=== PATIENT | female | born 1950 | race African-American/Black ===

== ENCOUNTER 2017-01-28 10:55 | Observation (INO) | payer BC, MEDICARE ==
[2017-01-28 12:06] LABS: #Eosinphils 0.1 thou/uL (0.0-0.7); #Monocytes 0.6 thou/uL (0.11-0.59); #Neutrophils 4.6 thou/uL (1.40-6.50); %Basophils 0.2 % (0.0-1.0); %Eosinophils 1.8 % (0.0-10.0); %Lymphocytes 27.2 % (21.0-51.0); %Monocytes 7.5 % (0.0-10.0); Mean Platelet Volume 8.2 fL (7.4-10.4); Red Blood Cell (RBC) Count 4.49 mill/uL (4.20-5.40); White Blood Cell (WBC) Count 7.3 thou/uL (4.8-10.8)
[2017-01-28] MEDS ORDERED: Ketorolac Tromethamine 30 MG/ML VIAL ONE (12:07)
[2017-01-28 12:26] LABS: Bilirubin Negative (Negative); Blood, Urine Negative (Negative); Glucose, Urine (Dipstick) Negative (Negative); Ketone, Urine Negative (Negative); Nitrite Negative (Negative); Protein, Urine (Dipstick) Negative (Neg-Trace)
[2017-01-28 12:30] LABS: ALT (SGPT) 32 U/L (8-55); AST (SGOT) 27 U/L (5-34); Alkaline Phosphatase 87 U/L (40-150); Anion Gap 11 mmol/L (10-20); BUN (Urea Nitrogen) 11 mg/dL (9.8-20.1); Bilirubin, Total 0.4 mg/dL (0.2-1.2); Calc. Creatinine Clearance 0 mL/min (70-130); Calcium 9.1 mg/dL (7.8-10.44); Carbon Dioxide 26 mmol/L (23-31); Chloride 105 mmol/L (98-107); Estimated GFR-MDRD Greater than 90; Globulin 2.8 g/dL (2.4-3.5); Lipase 14 U/L (8-78); Protein, Total 6.7 g/dL (6.0-8.3)
[2017-01-28 12:46] LABS: PTT 29.3 SEC (22.9-36.1)
[2017-01-28 12:58] LABS: Troponin I Less than 0.010 ng/mL (< 0.028)
[2017-01-28] MEDS ORDERED: ISOVUE-370 76%-LOCM 1 ML ONE (13:11)
--- NOTE | 2017-01-28 13:18 | CT ---
CT ABDOMEN AND PELVIS WITH CONTRAST: Technique: Multiple axial tomograms were obtained through the abdomen and pelvis with IV enhancement. Oral contrast was not administered. History: Right sided abdominal pain. Nausea. Comparison: Noncontrast CT abdomen and pelvis dated 04-24-12. FINDINGS: Lung bases are clear. There is a small sliding diaphragmatic hernia. The liver, spleen and pancreas appear unremarkable. The gallbladder is mildly distended. No calcified stone is seen on CT. Cholesterol stones will not be apparent on CT, consider gallbladder ultrasound evaluation. Review of the kidneys reveals an exophytic lesion measuring 1.2 cm off the lateral cortex of the left kidney. This lesion has densities recorded at 27 Hounsfield units which are too high for a simple cy stic lesion. This lesion was not present in 2013. Kidneys are otherwise unremarkable. No hydronephrosis. No urinary tract calculus. Small bowel loops are normal caliber. The appendix appears normal. Colon is unremarkable. Scattered d iverticula. No evidence of diverticulitis. Aorta is normal caliber. No adenopathy. Images through the pelvis again show a large partially calcified fibroid projecting from the anterior uterine fundus measuring 3-4 cm. This was noted on the prior exam. IMPRESSION: 1. There is a complex lesion which is exophytic from the lateral left renal cortex measuring 1.3 cm. Densities are higher than expected for a simple cyst. This lesion was not present in 2013 and is mode rately suspicious. Follow up is recommended to assess stability. Suggest repeat CT abdomen with and w ithout contrast in 3-4 months. 2. Mild gallbladder distention. Consider further evaluation with gallbladder ultrasound as discussed above. 3. Partially calcified fibroid from the uterine fundus again noted. 4. Small sliding diaphragmatic hernia. Code T POS: [facility]
[2017-01-28] MEDS ORDERED: Enoxaparin Sodium 100 MG/ML SYRINGE ONE (13:25)
[2017-01-28] MEDS ORDERED: Diltiazem 125 MG in Sodium Chloride 0.9% 100 ML IVPB SCH (13:30)
[2017-01-28 15:08] LABS: Free T3 3.19 pg/mL (1.71-3.71)
[2017-01-28 15:40] LABS: Troponin I Less than 0.010 ng/mL (< 0.028)
--- NOTE | 2017-01-28 15:40 | HP ---
PRIMARY CARE PHYSICIAN: Dr. Da Haywood at [facility]. REASON FOR ADMISSION: Abdominal pain and new onset atrial fibrillation. HISTORY OF PRESENT ILLNESS: A 66-year-old female with a history of hypertension, dyslipidemia, as well as chronic low back pain from lumbar stenosis, who came to the emergency room for evaluation of abdominal pain. She describes her pain is in the predominantly in the right hip area, which radiates posterior aspect of right leg to her toe, and at the same time, the patient also feeling abdominal pain, which radiates from right flank to groin. She was feeling nausea. She denies any fever or chills. She denies any urinary tract infection symptoms. She denies any constipation, diarrhea, melena, or hematochezia. In the emergency room, patient had CT of the abdomen and pelvis, which showed complex lesion from left renal cortex measuring about 1.3 cm and patient was also found with mild gallbladder distention and partially calcified uterine fibroid and small diaphragmatic hernia. The patient's pain was controlled in the emergency room, she was given Toradol 15 mg, aspirin 324 mg, IV fluids, Lovenox 1 mg/kg, and Cardizem 120 mg. This patient was newly diagnosed with atrial fibrillation. No one told that she has atrial fibrillation, but when they did EKGs, she was found with atrial fibrillation with RVR with heart rate was 137. Subsequently, after stabilization with the pain. The patient's heart rate was running in 100 to 110. She was not feeling any symptoms associated with AFib. She was not feeling any dizziness, chest pain, or palpitation. She did not have any previous stroke or TIA symptoms. She denies any diabetes history as well as CHF history. The patient denies taking excessive caffeinated products. She denies any thyroid disorder problem. She denies any headache, focal motor symptoms. REVIEW OF SYSTEMS: The following complete review of systems was negative, unless otherwise mentioned in the HPI or below: Constitutional: Weight loss or gain, ability to conduct usual activities. Skin: Rash, itching. Eyes: Double vision, pain. ENT/Mouth: Nose bleeding, neck stiffness, pain, tenderness. Cardiovascular: Palpitations, dyspnea on exertion, orthopnea. Respiratory: Shortness of breath, wheezing, cough, hemoptysis, fever or night sweats. Gastrointestinal: Poor appetite, abdominal pain, heartburn, nausea, vomiting, constipation, or diarrhea. Genitourinary: Urgency, frequency, dysuria, nocturia. Musculoskeletal: Pain, swelling. Neurologic/Psychiatric: Anxiety, depression. Allergy/Immunologic: Skin rash, bleeding tendency. Please see my HPI for pertinent positives and negatives. All other review of systems reviewed and negative except as mentioned in the HPI. CURRENT HOME MEDICATIONS: Amlodipine 10 mg p.o. daily, gabapentin 100 mg p.o. daily, and Lipitor 80 mg p.o. at bedtime. PAST MEDICAL HISTORY: Lumbar stenosis, morbid obesity, hypertension, osteoarthritis, dyslipidemia, and chronic low back pain. PAST SURGICAL HISTORY: , tubal ligation, left total knee replacement. PAST PSYCHIATRIC HISTORY: Reviewed and negative. SOCIAL HISTORY: Patient lives at home. 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 She denies any tobacco, alcohol or illicit drug abuse. She occasionally and very rarely socially drinks wine. FAMILY HISTORY: No strong family history of premature coronary artery disease, stroke or cancer. ALLERGIES: No known drug allergy. PHYSICAL EXAMINATION: VITAL SIGNS: On arrival, blood pressure 115/83, pulse 137 and irregular, respiratory rate 18, temperature 97.8, saturation 100% on room air and weight 104.3 kilograms. GENERAL: The patient is currently alert, awake, in no obvious acute distress. HEENT: Head is normocephalic, atraumatic. Eyes: Pupils round, reactive to light. Extraocular muscles intact. ENT: Oropharynx within normal limits. Moist mucous membranes. No oral lesions. No pharyngeal erythema, no exudates. NECK: Supple, no JVD, no thyromegaly, no carotid bruit. LUNGS: Clear to auscultation without any rhonchi or rales. CARDIAC: S1 and S2, irregularly irregular. No murmur elicited, no gallop, no rub. ABDOMEN: Obesity present. Bowel sounds present. No peritoneal signs, no guarding, no rigidity, no rebound. The patient does have right-sided flank discomfort, but no Mckeon sign. No epigastric discomfort. BACK: Right-sided hip tenderness and the patient has subjective pain radiating to lower leg on the right side. EXTREMITY: Upper extremity passive movement of all joints are normal. Lower extremity: Patient does have tenderness over right lateral thigh and gluteal muscles. The patient does have sciatica type of picture. NEUROLOGIC: The patient is alert, oriented x3. Cranial nerves II through XII intact. Motor and sensation within normal limits. No focal neurological deficit noted. SKIN: No skin rash. PSYCHIATRIC: Normal affect. HEMATOLOGIC: No lymphadenopathy. SIGNIFICANT LABS: EKG based on my review, atrial fibrillation with a rapid ventricular response, but subsequently her rate was variable from 100 to 110, nonspecific ST-T changes. CT of the abdomen and pelvis done in the emergency room showed incidental finding of complex lesion originating from left renal cortex measuring 1.3 cm. Gallbladder distention, partially calcified uterine fibroid and small sliding diaphragmatic hernia. CBC: WBC 7.3, hemoglobin 13.0, platelets 177. INR 1.1. BMP: Sodium 138, potassium 4.1, chloride 105, carbon dioxide 26, anion gap 11, BUN 11, creatinine 0.72, glucose 99, calcium 9.1. LFT: AST 27, ALT 32, alkaline phosphatase 87, albumin 3.9, lipase 14. CK 188, CK-MB 2.8, troponin I less than 0.010. Urinalysis normal. ASSESSMENT AND PLAN: 1. Abdominal pain, right side from groin to flank, uncertain etiology, but when we did a CT of the abdomen and pelvis, it is showing gallbladder distention. For further evaluation, I will do her gallbladder ultrasound to rule out any gallbladder pathology. Otherwise, we will control her pain with the pain medication. At this point, her pain is not clear currently explained by CT scan finding. 2. New onset atrial fibrillation with rapid ventricular response. The patient is asymptomatic. She does not know previous history of atrial fibrillation and most likely this is new onset. We will obtain echocardiography. I will check TSH, free T4, T3. I will start oral Cardizem therapy too for rate control. At this point, does not suspect that this patient will need a full admission or Cardizem drip, but we will continue to treat her with oral medication. The patient will need anticoagulation therapy with Lovenox 1 mg per kg for stroke prophylaxis. Meanwhile, we will continue with aspirin 325 mg p.o. daily. Patient has a CHADS2 score of only 2, so far with hypertension and age and so that she is at low risk for having any thromboembolic disorder from atrial fibrillation, so she may benefit from aspirin. 3. Renal mass. A CT scan finding reported 1.3 cm dense lesion from left kidney and it is suspicious and that is why I spoke with the patient to get another CT scan with renal mass protocol in 3-4 months. At this point, this is an incidental finding and no need of investigating during this admission. 4. Mild gallbladder distention, we will do an abdominal ultrasound to rule out any gallbladder pathology and to rule out any pigment stone. 5. Sliding diaphragmatic hernia. Patient will need Pepcid 20 mg twice daily and necessary dietary instruction given. 6. Calcified fibroid. At this point, patient is asymptomatic. She does not have any menorrhagia and her hemoglobin is stable. 6. Obesity with BMI of 32, the patient will need dietary education and weight loss education given. 7. Right hip pain and radicular pain in the right lower extremity. This patient has lumbar stenosis and now she is suffering from sciatica with radicular pain. At this point, we will control her pain with Toradol, morphine , and Flexeril. The patient is following outpatient basis in her pain clinic and that is why she is advised to follow up with pain clinic for further treatment if needed. 8. Deep venous thrombosis prophylaxis. At this point, we are starting Lovenox 1 mg per kg for a new onset atrial fibrillation. Gastrointestinal prophylaxis, Pepcid 20 mg p.o. daily. 9. Hypertension. We will continue amlodipine 10 mg p.o. daily if blood pressure permits. 10. Dyslipidemia. We will check lipid profile and continue Lipitor 80 mg p.o. at bedtime. 11. Deep venous thrombosis prophylaxis. Patient is already on Lovenox therapy. 12. Gastrointestinal prophylaxis. Pepcid 20 mg p.o. daily. CODE STATUS: The patient is FULL CODE. Disposition plan based on clinical course. Expecting discharge in 24-48 hours. If the patient continues to remain in atrial fibrillation with RVR, then we may consider changing to inpatient status, but at this point looking at the overall picture, the patient does not meet obvious criteria for a full admission. MTDD
[2017-01-28] MEDS ORDERED: Ondansetron ODT 4 MG TAB SL PRN (17:26)
[2017-01-28] MEDS ORDERED: Ondansetron HCl/PF 4 MG/2 ML Vial IVP PRN ×2 (17:26→17:43)
[2017-01-28] MEDS ORDERED: Acetaminophen 325 MG TAB PO PRN ×2 (17:26→17:43)
[2017-01-28] MEDS ORDERED: Senokot 8.6 MG TAB PO PRN (17:43)
[2017-01-28] MEDS ORDERED: Milk Of Magnesia 30 ML UDCUP PO PRN (17:43)
[2017-01-28] MEDS ORDERED: Diabetic Tussin 200 MG/10 ML UDCUP PO PRN (17:43)
[2017-01-28] MEDS ORDERED: HYDROcodone/Acetaminophen 10/325 mg Tablet PO PRN (17:43)
[2017-01-28] MEDS ORDERED: Sodium Chloride 0.65% Nasal 44 ML BOT EA NARE PRN (17:43)
[2017-01-28] MEDS ORDERED: Cyclobenzaprine 10 MG TAB PO PRN (17:43)
[2017-01-28] MEDS ORDERED: Loratadine 10 MG TAB PO PRN (17:43)
[2017-01-28] MEDS ORDERED: Eucerin (Mineral Oil/Petrolatum,White) 30 gm Jar TOP PRN (17:43)
[2017-01-28] MEDS ORDERED: hydrALAZINE 20 MG/ML VIAL SLOW IVP PRN (17:43)
[2017-01-28] MEDS ORDERED: Zolpidem Tartrate 5 MG TAB PO PRN (17:43)
[2017-01-28] MEDS ORDERED: Ondansetron ODT 4 MG TAB PO PRN (17:43)
[2017-01-28] MEDS ORDERED: Artificial Tear Sol 15 ML BOT EA EYE PRN (17:43)
[2017-01-28] MEDS ORDERED: Loperamide HCl 2 MG CAP PO PRN (17:43)
[2017-01-28] MEDS ORDERED: Mag-Al 1200 mg/1200 mg/30 ML UDCUP PO PRN (17:43)
[2017-01-28] MEDS ORDERED: Ketorolac Tromethamine 30 MG/ML VIAL IVP PRN (17:43)
[2017-01-28 18:04] VITALS: BMI 42.7
[2017-01-28] MEDS ORDERED: Morphine 4 MG/ML VIAL SLOW IVP PRN (18:30)
[2017-01-28 18:47] LABS: Troponin I Less than 0.010 ng/mL (< 0.028)
[2017-01-28] MEDS: Famotidine 20 MG TAB PO SCH (20:58)
[2017-01-28] MEDS: Atorvastatin Calcium 40 MG TAB PO SCH (20:58)
--- NOTE | 2017-01-28 21:28 | ULT ---
HISTORY: Abdominal pain. RIGHT UPPER QUADRANT ULTRASOUND 01/28/17 Multiple longitudinal and transverse images of the right upper quadrant of the abdomen is obtained us ing a multihertz curvilinear transducer. Real time and color flow images are used to evaluate the rig ht upper quadrant of the abdomen. The liver is unremarkable. The gallbladder is moderately distended. There is a large gallstone seen w ithin the gallbladder. Diameter measuring 2.2 cm. No evidence of pericholecystic fluid is seen. No ev idence of gallbladder wall thickening is seen. Common bile duct is at the upper limits normal in size for a patient of this age measuring 7.3 mm. No evidence of intrahepatic biliary dilatation is seen. The right kidney is unremarkable measuring 11.6 cm from pole to pole. There is a cortical cyst in the right kidney, diameter measuring approximately 18 x 18 mm. IMPRESSION: Cholelithiasis. POS: [facility]
[2017-01-28] MEDS ORDERED: Enoxaparin Sodium 120 MG/0.8 ML SYRINGE SC SCH (23:00)
[2017-01-29] MEDS: Gabapentin 100 MG CAP PO SCH (09:04)
[2017-01-29] MEDS: Famotidine 20 MG TAB PO SCH ×2 (09:04→19:52)
[2017-01-29] MEDS: Aspirin 325 MG TAB PO SCH (09:04)
[2017-01-29] MEDS: Enoxaparin Sodium 120 MG/0.8 ML SYRINGE SC SCH ×2 (09:37→19:53)
--- NOTE | 2017-01-29 12:35 | PDOC.PN ---
- Subjective Encounter Start Date: 01/29/17 Encounter Start Time: 07:30 -: old records requested/rev Patient seen and examined. No new complaints. No overnight events, with exertion gets RVR - Objective Resuscitation Status: Resuscitation Status FULL:Full Resuscitation MAR Reviewed: Yes Vital Signs & Weight: Vital Signs (12 hours) Temp Pulse Resp BP Pulse Ox 01/29/17 12:20 98.4 F 94 16 108/49 L 97 01/29/17 08:28 97.9 F 94 16 135/83 96 01/29/17 08:06 97.9 F 94 16 01/29/17 03:38 99 F 96 16 144/79 H 95 Weight Weight 256 lb 9.6 oz I&O: 01/28/17 01/29/17 01/30/17 06:59 06:59 06:59 Intake Total 450 Balance 450 Result Diagrams: 01/28/17 11:53 01/28/17 11:53 EKG Reviewed by me: Yes (afib) Phys Exam - Physical Examination Constitutional: NAD HEENT: PERRLA, moist MMs, sclera anicteric Neck: no JVD, supple Respiratory: no wheezing, no rales, no rhonchi Cardiovascular: no significant murmur, irregular Gastrointestinal: soft, non-tender, no distention, positive bowel sounds Musculoskeletal: no edema, pulses present Neurological: non-focal, normal sensation, moves all 4 limbs Lymphatic: no nodes Psychiatric: normal affect, A&O x 3 Skin: no rash, normal turgor Dx/Plan (1) Abdominal pain Code(s): R10.9 - UNSPECIFIED ABDOMINAL PAIN Status: Resolved (2) Lumbar radiculopathy Code(s): M54.16 - RADICULOPATHY, LUMBAR REGION Status: Resolved (3) New onset atrial fibrillation Code(s): I48.91 - UNSPECIFIED ATRIAL FIBRILLATION Status: Acute (4) Cholelithiases Code(s): K80.20 - CALCULUS OF GALLBLADDER W/O CHOLECYSTITIS W/O OBSTRUCTION Status: Chronic Qualifiers: Cholelithiasis location: gallbladder Cholecystitis presence: without cholecystitis Biliary obstruction: without biliary obstruction Qualified Code(s): K80.20 - Calculus of gallbladder without cholecystitis without obstruction (5) Dyslipidemia Code(s): E78.5 - HYPERLIPIDEMIA, UNSPECIFIED Status: Chronic (6) Hypertension Code(s): I10 - ESSENTIAL (PRIMARY) HYPERTENSION Status: Chronic (7) Lumbar stenosis Code(s): M48.061 - SPINAL STENOSIS, LUMBAR REGION WITHOUT NEUROGENIC LORETA Status: Chronic (8) Morbid obesity with BMI of 40.0-44.9, adult Code(s): E66.01 - MORBID (SEVERE) OBESITY DUE TO EXCESS CALORIES; Z68.41 - BODY MASS INDEX (BMI) 40.0-44.9, ADULT Status: Chronic - Plan cont current plan of care * echo pending * cardiology consult pending * will try to control rate with oral meds * her back pain and abdominal pain resolved * will consider aspirin vs elliquis on discharge for chronic anticoagulation on discharge * medication reviewed as below * symptomatic treatment. Review of Systems - Review of Systems ENT: negative: Ear Pain, Ear Discharge, Nose Pain, Nose Discharge, Nose Congestion, Mouth Pain, Mouth Swelling, Throat Pain, Throat Swelling, Other Respiratory: negative: Cough, Dry, Shortness of Breath, Hemoptysis, SOB with Excertion, Pleuritic Pain, Sputum, Wheezing Cardiovascular: negative: Chest Pain, Palpitations, Orthopnea, Paroxysmal Noc. Dyspnea, Edema, Light Headedness, Other Gastrointestinal: negative: Nausea, Vomiting, Abdominal Pain, Diarrhea, Constipation, Melena, Hematochezia, Other Genitourinary: negative: Dysuria, Frequency, Incontinence, Hematuria, Retention , Other Musculoskeletal: negative: Neck Pain, Shoulder Pain, Arm Pain, Back Pain, Hand Pain, Leg Pain, Foot Pain, Other - Medications/Allergies Allergies/Adverse Reactions: Allergies Allergy/AdvReac Type Severity Reaction Status Date / Time No Known Allergies Allergy Verified 01/28/17 17:47 Medications: Current Medications Acetaminophen (Tylenol) 650 mg PO Q4H PRN PRN Reason: Headache/Fever or Pain Hydrocodone Bitart/Acetaminophen ([place]Brien 10/325) 1 tab PO Q4H PRN PRN Reason: Moderate Pain (4-6) Al Hydroxide/Mg Hydroxide (Maalox) 30 ml PO Q6H PRN PRN Reason: Heartburn or Indigestion Artificial Tears (Tears Renewed 15ml Bottle) 0 drop EA EYE PRN PRN PRN Reason: Dry Eyes Aspirin (Aspirin) 325 mg PO DAILY [facility] Last Admin: 01/29/17 09:04 Dose: 325 mg Atorvastatin Calcium (Lipitor) 80 mg PO HS [facility] Last Admin: 01/28/17 20:58 Dose: 80 mg Cyclobenzaprine HCl (Flexeril) 10 mg PO TID PRN PRN Reason: Muscle Spasm Diltiazem HCl (Cardizem) 30 mg PO QID [facility] Last Admin: 01/29/17 09:04 Dose: 30 mg Enoxaparin Sodium (Lovenox) 120 mg SC 0900,2100 [facility] Last Admin: 01/29/17 09:37 Dose: 120 mg Famotidine (Pepcid) 20 mg PO BID [facility] Last Admin: 01/29/17 09:04 Dose: 20 mg Gabapentin (Neurontin) 100 mg PO DAILY [facility] Last Admin: 01/29/17 09:04 Dose: 100 mg Guaifenesin (Robitussin Sf) 200 mg PO Q4H PRN PRN Reason: Cough Hydralazine HCl (Apresoline) 10 mg SLOW IVP Q4H PRN PRN Reason: Systolic BP > 180 Ketorolac Tromethamine (Toradol) 15 mg IVP Q6H PRN PRN Reason: Pain Stop: 02/02/17 17:44 Loperamide HCl (Imodium) 2 mg PO PRN PRN PRN Reason: Diarrhea/Loose Stools Loratadine (Claritin) 10 mg PO DAILYPRN PRN PRN Reason: Sinus Symptoms Magnesium Hydroxide (Milk Of Magnesium) 30 ml PO DAILYPRN PRN PRN Reason: Constipation Mineral Oil/White Petrolatum (Eucerin Cream) 0 gm TOP BIDPRN PRN PRN Reason: Dry Skin Morphine Sulfate (Morphine) 4 mg SLOW IVP Q4H PRN PRN Reason: Severe Pain (7-10) Ondansetron HCl (Zofran Odt) 4 mg PO Q6H PRN PRN Reason: Nausea/Vomiting Ondansetron HCl (Zofran) 4 mg IVP Q6H PRN PRN Reason: Nausea/Vomiting Senna (Senokot) 2 tab PO HSPRN PRN PRN Reason: Constipation Sodium Chloride ([place] Nasal [place] 0.65%) 0 ml EA NARE QIDPRN PRN PRN Reason: Nasal Congestion Zolpidem Tartrate (Ambien) 5 mg PO HSPRN PRN PRN Reason: Insomnia
--- NOTE | 2017-01-29 15:26 | CON ---
DATE OF CONSULTATION: 01/29/2017 REASON FOR CONSULTATION: Atrial fibrillation. REFERRING PROVIDER: Dr. Hager. HISTORY OF PRESENT ILLNESS: Ms. Worley is a 66-year-old woman with a past medical history of hyperte nsion who recently presented with abdominal discomfort. She was found to be in atrial fibrillation w ith RVR. This is a new diagnosis. No previous history. No chest pain, pressure, shortness of breat h or other associated symptoms noted. She does have a history of hypertension, age greater than 62 i n this female with a CHADS-VASc score of 3. PAST MEDICAL HISTORY: Obesity, hypertension, osteoarthritis, chronic low back pain, hyperlipidemia, , BTL and total knee replacement. SOCIAL HISTORY: No current tobacco or alcohol use. She currently works at [employer]. ALLERGIES: None. REVIEW OF SYSTEMS: Ten-point review of systems is reviewed and is as above, otherwise negative. PHYSICAL EXAMINATION: GENERAL: Patient is a pleasant female who is in no acute distress. The patient appears her stated a ge. VITAL SIGNS: Blood pressure 108/49, pulse 94 and temperature 98.4. NEUROLOGIC: The patient is alert and oriented x3 with no focal neurologic deficits. HEENT: Sclerae without icterus. Mouth has moist mucous membranes with normal pallor. NECK: No JVD. Carotid upstroke brisk. No bruits bilaterally. LUNGS: Clear to auscultation with unlabored respirations. BACK: No scoliosis or kyphosis. HEART: Irregularly irregular. ABDOMEN: Soft, nontender and nondistended. No peritoneal signs present. No hepatosplenomegaly. No abnormal striae. EXTREMITIES: 2+ femoral and 2+ dorsalis pedis pulses. No cyanosis, clubbing, or edema. SKIN: No gross abnormalities. IMAGING DATA: EKG shows atrial fibrillation. PERTINENT LABS: Hemoglobin 13. Troponin negative. Creatinine 0.72. IMPRESSION: New onset atrial fibrillation. RECOMMENDATIONS: Given a CHADS-VASc score of 3, we would recommend anticoagulation therapy. Discuss ed risks and benefits of anticoagulation therapy with the patient. She has agreed to take that 5 mg 1 p.o. b.i.d. We will change her Cardizem which is currently short acting to a longer acting does. I f her echo appears stable, would be okay from my standpoint to discharge home after rate control is a chieved and consider cardioversion if patient has symptoms.
[2017-01-29] MEDS: Atorvastatin Calcium 40 MG TAB PO SCH (19:52)
[2017-01-30 04:32] VITALS: TEMP 98.3
[2017-01-30 04:59] LABS: Hematocrit 39.8 % (36.0-47.0)
[2017-01-30 05:08] LABS: Calc. Creatinine Clearance 144 mL/min (70-130); Estimated GFR-MDRD Greater than 90
[2017-01-30 08:09] VITALS: BP 118/59
[2017-01-30] MEDS: Aspirin 325 MG TAB PO SCH (08:56)
[2017-01-30] MEDS: Famotidine 20 MG TAB PO SCH (08:57)
[2017-01-30] MEDS: Gabapentin 100 MG CAP PO SCH (08:57)
[2017-01-30] MEDS: Enoxaparin Sodium 120 MG/0.8 ML SYRINGE SC SCH (08:57)
--- NOTE | 2017-01-30 10:12 | PDOC.PN ---
- Subjective Encounter Start Date: 01/30/17 Encounter Start Time: 07:40 Patient seen and examined. No new complaints. No overnight events - Objective Resuscitation Status: Resuscitation Status FULL:Full Resuscitation MAR Reviewed: Yes Vital Signs & Weight: Vital Signs (12 hours) Temp Pulse Resp BP Pulse Ox 01/30/17 08:00 98.3 F 99 18 118/59 L 95 01/30/17 07:56 98.3 F 99 18 01/30/17 04:23 98.3 F 96 20 103/52 L 95 Weight Weight 250 lb 14.4 oz I&O: 01/29/17 01/30/17 01/31/17 06:59 06:59 06:59 Intake Total 450 700 Balance 450 700 Result Diagrams: 01/30/17 04:24 01/30/17 04:24 EKG Reviewed by me: Yes (afib) Phys Exam - Physical Examination Constitutional: NAD HEENT: PERRLA, moist MMs, sclera anicteric Neck: no JVD, supple Respiratory: no wheezing, no rales, no rhonchi Cardiovascular: no significant murmur, no rub, irregular Gastrointestinal: soft, non-tender, no distention, positive bowel sounds Musculoskeletal: no edema, pulses present Neurological: non-focal, normal sensation Psychiatric: normal affect, A&O x 3 Skin: no rash, normal turgor Dx/Plan (1) Abdominal pain Code(s): R10.9 - UNSPECIFIED ABDOMINAL PAIN Status: Resolved (2) Lumbar radiculopathy Code(s): M54.16 - RADICULOPATHY, LUMBAR REGION Status: Resolved (3) New onset atrial fibrillation Code(s): I48.91 - UNSPECIFIED ATRIAL FIBRILLATION Status: Acute (4) Cholelithiases Code(s): K80.20 - CALCULUS OF GALLBLADDER W/O CHOLECYSTITIS W/O OBSTRUCTION Status: Chronic Qualifiers: Cholelithiasis location: gallbladder Cholecystitis presence: without cholecystitis Biliary obstruction: without biliary obstruction Qualified Code(s): K80.20 - Calculus of gallbladder without cholecystitis without obstruction (5) Dyslipidemia Code(s): E78.5 - HYPERLIPIDEMIA, UNSPECIFIED Status: Chronic (6) Hypertension Code(s): I10 - ESSENTIAL (PRIMARY) HYPERTENSION Status: Chronic (7) Lumbar stenosis Code(s): M48.061 - SPINAL STENOSIS, LUMBAR REGION WITHOUT NEUROGENIC LORETA Status: Chronic (8) Morbid obesity with BMI of 40.0-44.9, adult Code(s): E66.01 - MORBID (SEVERE) OBESITY DUE TO EXCESS CALORIES; Z68.41 - BODY MASS INDEX (BMI) 40.0-44.9, ADULT Status: Chronic - Plan cont current plan of care * medication reviewed as below * symptomatic treatment * cardizem cd 180 mg daily * eliquis 5 mg po bid * echo result pending * will discharge if cardiology Ok. Review of Systems - Review of Systems ENT: negative: Ear Pain, Ear Discharge, Nose Pain, Nose Discharge, Nose Congestion, Mouth Pain, Mouth Swelling, Throat Pain, Throat Swelling, Other Respiratory: negative: Cough, Dry, Shortness of Breath, Hemoptysis, SOB with Excertion, Pleuritic Pain, Sputum, Wheezing Cardiovascular: negative: Chest Pain, Palpitations, Orthopnea, Paroxysmal Noc. Dyspnea, Edema, Light Headedness, Other Gastrointestinal: negative: Nausea, Vomiting, Abdominal Pain, Diarrhea, Constipation, Melena, Hematochezia, Other Genitourinary: negative: Dysuria, Frequency, Incontinence, Hematuria, Retention , Other Musculoskeletal: negative: Neck Pain, Shoulder Pain, Arm Pain, Back Pain, Hand Pain, Leg Pain, Foot Pain, Other - Medications/Allergies Allergies/Adverse Reactions: Allergies Allergy/AdvReac Type Severity Reaction Status Date / Time No Known Allergies Allergy Verified 01/28/17 17:47 Medications: Current Medications Acetaminophen (Tylenol) 650 mg PO Q4H PRN PRN Reason: Headache/Fever or Pain Hydrocodone Bitart/Acetaminophen (Mobile 10/325) 1 tab PO Q4H PRN PRN Reason: Moderate Pain (4-6) Last Admin: 01/30/17 00:20 Dose: 1 tab Al Hydroxide/Mg Hydroxide (Maalox) 30 ml PO Q6H PRN PRN Reason: Heartburn or Indigestion Artificial Tears (Tears Renewed 15ml Bottle) 0 drop EA EYE PRN PRN PRN Reason: Dry Eyes Aspirin (Aspirin) 325 mg PO DAILY [facility] Last Admin: 01/30/17 08:56 Dose: 325 mg Atorvastatin Calcium (Lipitor) 80 mg PO HS [facility] Last Admin: 01/29/17 19:52 Dose: 80 mg Cyclobenzaprine HCl (Flexeril) 10 mg PO TID PRN PRN Reason: Muscle Spasm Diltiazem HCl (Cardizem Cd) 180 mg PO 1500 [facility] Last Admin: 01/29/17 15:51 Dose: 180 mg Enoxaparin Sodium (Lovenox) 120 mg SC 0900,2100 [facility] Last Admin: 01/30/17 08:57 Dose: 120 mg Famotidine (Pepcid) 20 mg PO BID [facility] Last Admin: 01/30/17 08:57 Dose: 20 mg Gabapentin (Neurontin) 100 mg PO DAILY [facility] Last Admin: 01/30/17 08:57 Dose: 100 mg Guaifenesin (Robitussin Sf) 200 mg PO Q4H PRN PRN Reason: Cough Hydralazine HCl (Apresoline) 10 mg SLOW IVP Q4H PRN PRN Reason: Systolic BP > 180 Ketorolac Tromethamine (Toradol) 15 mg IVP Q6H PRN PRN Reason: Pain Stop: 02/02/17 17:44 Loperamide HCl (Imodium) 2 mg PO PRN PRN PRN Reason: Diarrhea/Loose Stools Loratadine (Claritin) 10 mg PO DAILYPRN PRN PRN Reason: Sinus Symptoms Magnesium Hydroxide (Milk Of Magnesium) 30 ml PO DAILYPRN PRN PRN Reason: Constipation Mineral Oil/White Petrolatum (Eucerin Cream) 0 gm TOP BIDPRN PRN PRN Reason: Dry Skin Morphine Sulfate (Morphine) 4 mg SLOW IVP Q4H PRN PRN Reason: Severe Pain (7-10) Ondansetron HCl (Zofran Odt) 4 mg PO Q6H PRN PRN Reason: Nausea/Vomiting Ondansetron HCl (Zofran) 4 mg IVP Q6H PRN PRN Reason: Nausea/Vomiting Senna (Senokot) 2 tab PO HSPRN PRN PRN Reason: Constipation Sodium Chloride ([place] Nasal [place] 0.65%) 0 ml EA NARE QIDPRN PRN PRN Reason: Nasal Congestion Sodium Chloride (Flush - Normal Saline) 10 ml IVF Q12HR [facility] Last Admin: 01/30/17 08:57 Dose: 10 ml Sodium Chloride (Flush - Normal Saline) 10 ml IVF PRN PRN PRN Reason: Saline Flush Zolpidem Tartrate (Ambien) 5 mg PO HSPRN PRN PRN Reason: Insomnia
--- NOTE | 2017-01-30 12:27 | DIS ---
PRIMARY CARE PHYSICIAN: Dr. Da Haywood DATE OF ADMISSION: 01/28/2017 DATE OF DISCHARGE: 01/30/2017 DISCHARGE DISPOSITION: Home. PRIMARY DISCHARGE DIAGNOSES: 1. New onset atrial fibrillation. 2. Lumbar stenosis with lumbar radiculopathy. 3. Abdominal pain resolved. 4. Asymptomatic cholelithiasis. SECONDARY DISCHARGE DIAGNOSES: Hypertension, dyslipidemia, morbid obesity with BMI of 41, chronic lo w back pain. PRIMARY PROCEDURE/OPERATION: None. RADIOLOGICAL INVESTIGATION: Abdomen and pelvis CT scan showed cholelithiasis. Abdominal ultrasound showed cholelithiasis. Echocardiography showed EF 45%, moderate MR, mild to moderate TR, low EF was attributed to be due to atrial fibrillation. SIGNIFICANT LABS: WBC 7.3, hemoglobin 12.6, platelets 161, INR 1.1. Cardiac enzymes negative. BNP 114. Thyroid function test normal. LDL 57. BMP, LFTs normal. Urinalysis normal. DISCHARGE MEDICATIONS: Eliquis 5 mg p.o. b.i.d., Lipitor 80 mg p.o. at bedtime, Flexeril 10 mg p.o. t.i.d. p.r.n., Cardizem-CD 180 mg p.o. daily, Pepcid 20 mg p.o. b.i.d., gabapentin 100 mg p.o. at bed time, tramadol 50 mg q.6 hourly p.r.n. CONTRAINDICATIONS: None. CODE STATUS: FULL CODE. INPATIENT CONSULTANTS: Dr. Stuart was consulted while in hospital. TEST RESULTS PENDING ON DISCHARGE: None. ALLERGIES: No known drug allergies. DISCHARGE PLAN: Post hospital, the patient will follow up with Dr. Stuart. HOSPITAL COURSE: A 66-year-old female who presented to emergency room with abdominal pain as well as right hip pain and radicular pain to right lower extremity. She has lumbar stenosis history and she gets this type of problem currently and she was given pain medication and her symptoms were complete ly improved. Surprisingly at this time, we found atrial fibrillation with RVR. She never had any at rial fibrillation before and that is why this was considered a new onset. She was treated with Cardi zem-CD while in hospital. Her rate was under control with Cardizem p.o. She was meeting criteria fo r anticoagulation and that is why we started Eliquis therapy. Echocardiography showed low EF, but it was related with atrial fibrillation and that is why I advised this patient to get another echocardi ography upon followup visit with Cardiology. The patient was found with asymptomatic cholelithiasis. Her pain was controlled with muscle relaxant and pain medication. While in hospital, we started Cardizem-CD and that is why we discontinued amlodipine. The patient is instructed to follow up with Cardiology as well as primary care physician. The patient is seen and examined at bedside today. Please see my progress note from today for further details.
--- NOTE | 2017-02-08 14:29 | EKG ---
Test Reason : Blood Pressure : / mmHG Vent. Rate : 111 BPM Atrial Rate : 113 BPM P-R Int : 000 ms QRS Dur : 076 ms QT Int : 300 ms P-R-T Axes : 000 027 012 degrees QTc Int : 408 ms Atrial fibrillation with rapid ventricular response Abnormal ECG Confirmed by AMMY BECKER DO ([id number]), communications editor STALIN SALAS ([id number]) on 02/08/2017 2:29:11 PM Referred By: Confirmed By:AMMY BECKER DO
== END 2017-01-30 11:04 | disposition home or self-care (01) ==
LOC: ERS 10:55 → 2SW 13:30
PROVIDERS: ADMIT Internal Medicine; ATTEND Internal Medicine
DX: R10.9 Unspecified abdominal pain (principal); I48.0 Paroxysmal atrial fibrillation; K80.20 Calculus of gallbladder without cholecystitis without obstruction; K44.9 Diaphragmatic hernia without obstruction or gangrene; M48.061 Spinal stenosis, lumbar region without neurogenic claudication; M54.16 Radiculopathy, lumbar region; I10 Essential (primary) hypertension; E78.5 Hyperlipidemia, unspecified; M19.90 Unspecified osteoarthritis, unspecified site; N28.89 Other specified disorders of kidney and ureter; E66.01 Morbid (severe) obesity due to excess calories; Z68.41 Body mass index [BMI] 40.0-44.9, adult; Z79.899 Other long term (current) drug therapy; Z96.652 Presence of left artificial knee joint; Z98.890 Other specified postprocedural states
CPT/HCPCS: 36415; 74177; 76705; 80053; 80061; 81003; 82550; 82553; 82565; 83690; 83880; 84439; 84443; 84481; 84484; 85014; 85018; 85025; 85049; 85610; 85730; 93005; 93306; 96361; 96365; 96372; 96375; A4216; G0378; J1650; J1885; J7050

== ENCOUNTER 2017-02-18 17:09 | Inpatient (IN) | payer BC, MEDICARE ==
[~2017-02-18 17:09] MED LIST: ISOVUE-370 76%-LOCM 1 ML ONE
[2017-02-18 21:20] LABS: #Eosinphils 0.1 thou/uL (0.0-0.7); #Lymphocytes 2.3 thou/uL (1.20-3.40); #Monocytes 0.6 thou/uL (0.11-0.59); #Neutrophils 6.7 thou/uL (1.40-6.50); %Basophils 0.5 % (0.0-1.0); %Lymphocytes 23.8 % (21.0-51.0); %Monocytes 6.5 % (0.0-10.0); %Neutrophils 68.3 % (42.0-75.0); Hemoglobin 13.1 g/dL (12.0-16.0); Mean Corpuscular HGB CONC 31.4 g/dL (32.0-36.0); Mean Corpuscular Hemoglobin 28.7 pg (27.0-31.0); Mean Corpuscular Volume 91.5 fl (81.0-99.0); Mean Platelet Volume 8.1 fL (7.4-10.4); Platelet Count 186 thou/uL (130-400); RBC Distribution Width 12.2 % (11.5-14.5); Red Blood Cell (RBC) Count 4.56 mill/uL (4.20-5.40); White Blood Cell (WBC) Count 9.8 thou/uL (4.8-10.8)
[2017-02-18 21:38] LABS: ALT (SGPT) 93 U/L (8-55); AST (SGOT) 69 U/L (5-34); Albumin 4.1 g/dL (3.4-4.8); Alkaline Phosphatase 87 U/L (40-150); Anion Gap 11 mmol/L (10-20); BUN (Urea Nitrogen) 10 mg/dL (9.8-20.1); Bilirubin, Total 0.4 mg/dL (0.2-1.2); Calc. Creatinine Clearance 0 mL/min (70-130); Calcium 9.4 mg/dL (7.8-10.44); Carbon Dioxide 27 mmol/L (23-31); Chloride 105 mmol/L (98-107); Estimated GFR-MDRD Greater than 90; Glucose 111 mg/dL (80-115); Lipase 12 U/L (8-78); Potassium 3.7 mmol/L (3.5-5.1); Protein, Total 7.1 g/dL (6.0-8.3); Sodium 139 mmol/L (136-145)
[2017-02-18 21:48] LABS: CKMB 2.2 ng/mL (0-6.6); Troponin I Less than 0.010 ng/mL (< 0.028)
--- NOTE | 2017-02-18 23:26 | RAD ---
ONE VIEW CHEST 02/18/17 HISTORY: Stomach swelling. Shortness of breath. COMPARISON: 05/04/16 FINDINGS: Enlarged cardiac silhouette. Pulmonary vessels and hilum are normal. Costophrenic angles are clear. F ocal opacity in the right lung base cannot be excluded. No pneumothorax or osseous abnormality. IMPRESSION: Possible right lower lobe infiltrate. Continued surveillance. POS: [facility]
--- NOTE | 2017-02-19 00:47 | CT ---
EXAM CT ANGIOGRAM OF THE CHEST 02/18/17 HISTORY: Shortness of breath. Patient is on blood thinners for heart murmur. Wheezing. Abdominal pain. Evaluat e for pulmonary artery embolism. COMPARISON: None. TECHNIQUE: CT angiogram of the chest is performed in the axial plane. Bilateral oblique and coronal three dimens ional reformatted images are submitted for interpretation. FINDINGS: Trachea and central bronchi are patent. Increased opacities in the right infrahilar region. Small rig ht sided pleural effusion. Areas of scarring and atelectasis in the left and right upper lobe. Minima l atelectatic change in the left lower lobe. Heterogeneous thyroid gland. Right thyroid nodule is incompletely evaluated. Nonemergent thyroid ultr asound. No mediastinal mass, lymphadenopathy, or hematoma. Heart is enlarged. No significant pericardial flui d. There are coronary calcifications. The visualized aorta is grossly unremarkable. Upper solid organs are unremarkable. Adequate contrast opacification in the pulmonary arterial system to the level of the segmental arteri es. No filling defect to suggest thromboembolism. IMPRESSION: 1. No evidence of pulmonary artery embolism to the level of the segmental arteries. 2. Substernal right thyroid lobe, incompletely evaluated. Nonemergent thyroid ultrasound. 3. Right infrahilar infiltrate. Continued surveillance. POS: [facility]
[2017-02-19] MEDS ORDERED: Oseltamivir 75 MG CAP PO SCH ×2 (01:45→09:00)
[2017-02-19] MEDS ORDERED: Ondansetron ODT 4 MG TAB SL PRN (03:52)
[2017-02-19] MEDS ORDERED: Ondansetron HCl/PF 4 MG/2 ML Vial IVP PRN (03:52)
[2017-02-19] MEDS ORDERED: Acetaminophen 325 MG TAB PO PRN (03:52)
[2017-02-19] MEDS ORDERED: Dextrose 5 %-0.45 % NaCl 1,000 ML IV SCH (04:00)
[2017-02-19 04:30] VITALS: BMI 45.4
[2017-02-19] MEDS: D5 1/2 NS 500 ML IV SCH ×2 (05:02→13:22)
[2017-02-19] MEDS ORDERED: Cyclobenzaprine 10 MG TAB PO PRN (08:13)
[2017-02-19] MEDS ORDERED: traMADol HCl 50 MG TAB PO PRN (08:13)
--- NOTE | 2017-02-19 09:03 | HP ---
DATE OF ADMISSION: 02/19/2017 PRIMARY CARE PHYSICIAN: Gabi. ADMITTING PHYSICIAN: Dr. Dawit Ndiaye. CHIEF COMPLAINT: Shortness of breath, fatigue. HISTORY OF PRESENT ILLNESS: Patient is a pleasant 66-year-old female with history of atrial fibrilla tion, hypertension, and GERD. The patient works at [employer] and for the last few days, she has noticed that she has had increased shortness of breath. She also reports wheezing, abdominal angelita n, and cough productive with white sputum. She reports that she also was experiencing some lower [place] pain, she denies fevers, chills. She also denies chest pain, diaphoresis. She does also report th at she has had some vomiting with a distended abdomen that started last night. She reports that noth ing relieves or exacerbates her symptoms. REVIEW OF SYSTEMS: The following complete review of systems was negative, unless otherwise mentioned in the HPI or below: Constitutional: Weight loss or gain, sense of well-being, ability to conduct usual activities, exerc ise tolerance. Skin/Breast: Rash, itching, changes in hair growth or loss, nail changes, breast lumps, tenderness, swelling, nipple discharge. Eyes: Vision, double vision, tearing, blind spots, pain. ENT/Mouth: Headaches (location, time of onset, duration, precipitating factors), vertigo, lightheade dness, injury. Vision, double vision, tearing, blind spots, pain, nose bleeding, colds, obstruction, discharge, dental difficulties, gingival bleeding, dentures, neck stiffness, pain, tenderness, masses in thyroid or other areas. Cardiovascular: Precordial pain, substernal distress, palpitations, syncope, dyspnea on exertion, or thopnea, nocturnal paroxysmal dyspnea, edema, cyanosis, hypertension, heart murmurs, varicosities, ph lebitis, claudication. Respiratory: Pain, shortness of breath, wheezing, stridor, cough, hemoptysis, fever or night sweats. Gastrointestinal: Poor appetite, dysphagia, indigestion, abdominal pain, heartburn, eructation, naus ea, vomiting, hematemesis, jaundice, constipation, or diarrhea, abnormal stools (david-colored, tarry, bloody, greasy, foul smelling), flatulence, hemorrhoids, recent changes in bowel habits. Genitourinary: Urgency, frequency, dysuria, nocturia, hematuria, polyuria, oliguria, unusual (or joleen nge in) color of urine, stones, hesitancy, change in size of stream, dribbling, acute retention or in continence, libido, potency. Musculoskeletal: Pain, swelling, redness or heat of muscles or joints, limitation, of motion, muscul ar weakness, atrophy, cramps. Neurologic/Psychiatric: Convulsions, paralyses, tremor, incoordination, paresthesias, difficulties w ith memory of speech, sensory or motor disturbances, or muscular coordination (ataxia, tremor), emoti onal problems, anxiety, depression, previous psychiatric care, unusual perceptions, hallucinations. Allergy/Immunologic: Skin rash, anemia, bleeding tendency, polydipsia, polyuria, intolerance to heat or cold. PAST MEDICAL HISTORY: Significant for atrial fibrillation with rapid ventricular response, hypertens ion, myalgias, lumbago, osteoarthritis. PAST SURGICAL HISTORY: Positive for left knee surgery, . PSYCHIATRIC HISTORY: None. SOCIAL HISTORY: The patient denies tobacco, drug use. She lives at home alone and works at [employer]. She does drink socially and rarely. HOME MEDICATIONS: Eliquis 5 mg b.i.d., Pepcid 20 mg b.i.d., diltiazem extended release 100 mg every day. ALLERGIES: No known drug allergies. FAMILY HISTORY: Reviewed and noncontributory to this case. PHYSICAL EXAMINATION: VITAL SIGNS: Temperature 98.7, blood pressure 143/82, pulse 96, respirations 20, satting 95% on room air. GENERAL: She is very pleasant, cooperative, in no acute distress. HEAD: Normocephalic, atraumatic. EYES: PERRL. Extraocular muscles intact. Sclerae are anicteric. ENT: Nose exam normal. No bleeding from the ears. Mouth exam normal. Mucous membranes pink and mo ist. NECK: Supple. Full range of motion. Trachea midline. RESPIRATORY: Breath sounds are clear, no rhonchi. CARDIOVASCULAR: Irregularly irregular. ABDOMEN: Nontender, soft, obese, positive bowel sounds. EXTREMITIES: No clubbing, cyanosis or edema. NEUROLOGIC: Alert and oriented x3. Full range of motion of all extremities. Cranial nerves II thro ugh XII grossly intact. SKIN: Skin is warm, dry, normal in color. PSYCHIATRIC: Once again, patient is oriented to person, place and time with normal affect. LABORATORY DATA AND IMAGES: EKG performed in the emergency department does show an atrial fibrillati on with rapid ventricular response. Chest x-ray shows a possible right lower lobe opacity. Chest CT is negative for pulmonary emboli and once again shows opacification in the right lower lung. CBC sh ows a white count of 9.8, hemoglobin 13.1, hematocrit 41.8, platelets 186, 68% neutrophils. The harjinder ent had a D-dimer of 1.04. Chem-7 shows sodium of 139, potassium 3.7, chloride 105, CO2 27, BUN 10, creatinine 0.71, glucose 111. Lactic acid 1.4, AST 69, ALT 93, CK-MB of 2.2, troponin I of less than 0.01. BNP of 120.6. TSH 3.56. ASSESSMENT: 1. Right lower lobe pneumonia with hypoxia. The patient was noted to desaturate to 85% with ambulat ion in the emergency department. 2. Atrial fibrillation with rapid ventricular response. 3. Possible viral syndrome. PLAN: The patient will be admitted to telemetry. She will be treated with calcium channel blockers as needed to control her rapid ventricular response. The patient will also be treated empirically wi th antiviral Tamiflu as well as antimicrobials. We will also provide supplemental O2 and other thera py as warranted.
[2017-02-19] MEDS: Apixaban 5 MG TAB PO SCH ×2 (09:12→20:43)
[2017-02-19] MEDS: Amoxicillin/Potassium Clav 500 MG TAB PO SCH ×2 (09:13→20:41)
[2017-02-19] MEDS: Sodium Chloride 0.9% 1,000 ML IV SCH ×2 (12:35→20:46)
[2017-02-19] MEDS ORDERED: Bismuth Subs 17.5mg/mL Susp 120 ML BOT PO PRN (12:41)
[2017-02-19] MEDS ORDERED: Pepto Bismol Chew TAB PO PRN (15:27)
[2017-02-20] MEDS: Sodium Chloride 0.9% 1,000 ML IV SCH ×3 (05:13→14:58)
[2017-02-20 06:35] LABS: Anion Gap 14 mmol/L (10-20); BUN (Urea Nitrogen) 9 mg/dL (9.8-20.1); Calc. Creatinine Clearance 140 mL/min (70-130); Calcium 9.6 mg/dL (7.8-10.44); Carbon Dioxide 21 mmol/L (23-31); Chloride 107 mmol/L (98-107); Estimated GFR-MDRD Greater than 90; Glucose 225 mg/dL (80-115); Sodium 138 mmol/L (136-145)
[2017-02-20] MEDS: Apixaban 5 MG TAB PO SCH ×2 (08:13→20:14)
[2017-02-20] MEDS: Amoxicillin/Potassium Clav 500 MG TAB PO SCH (08:14)
[2017-02-20] MEDS ORDERED: Diltiazem HCl SR 60 mg Capsule PO SCH (10:30)
--- NOTE | 2017-02-20 14:20 | PDOC.PN ---
- Subjective Encounter Start Date: 02/20/17 Encounter Start Time: 14:18 Subjective: feels better.breathing improving - Objective MAR Reviewed: Yes Vital Signs & Weight: Vital Signs (12 hours) Temp Pulse Resp BP BP Pulse Ox 02/20/17 11:39 97.6 F 109 H 18 169/105 H 92 L 02/20/17 10:39 110 H 02/20/17 08:53 95 02/20/17 08:50 110 H 20 95 02/20/17 08:00 97.8 F 110 H 18 02/20/17 07:06 97.8 F 110 H 18 132/73 97 02/20/17 04:00 124 H 18 176/86 H 96 Result Diagrams: 02/18/17 21:07 02/20/17 05:39 Additional Labs: Laboratory Tests 02/18/17 02/18/17 02/18/17 21:07 21:07 21:07 D-Dimer 1.04 H Total Bilirubin 0.4 AST 69 H ALT 93 H Troponin I Less than 0.010 B-Natriuretic Peptide TSH 3rd Generation 02/18/17 02/18/17 21:07 21:07 D-Dimer Total Bilirubin AST ALT Troponin I B-Natriuretic Peptide 120.6 H TSH 3rd Generation 3.5620 Phys Exam - Physical Examination Constitutional: NAD HEENT: PERRLA, moist MMs, sclera anicteric, TM's clear, oral pharynx no lesions Neck: no nodes, no JVD, supple, full ROM Respiratory: no rales, no rhonchi decreased at bases Cardiovascular: RRR, no significant murmur Gastrointestinal: soft, non-tender, no distention, positive bowel sounds Musculoskeletal: no edema, pulses present Neurological: non-focal, normal sensation, moves all 4 limbs Psychiatric: normal affect, A&O x 3 Skin: no rash Dx/Plan (1) PNA (pneumonia) Code(s): J18.9 - PNEUMONIA, UNSPECIFIED ORGANISM Status: Acute (2) Chronic atrial fibrillation with RVR Code(s): I48.2 - CHRONIC ATRIAL FIBRILLATION Status: Chronic (3) Chronic anticoagulation Code(s): Z79.01 - DETENTION (CURRENT) USE OF ANTICOAGULANTS Status: Chronic (4) Dyslipidemia Code(s): E78.5 - HYPERLIPIDEMIA, UNSPECIFIED Status: Chronic (5) Hypertension Code(s): I10 - ESSENTIAL (PRIMARY) HYPERTENSION Status: Chronic (6) Morbid obesity with BMI of 40.0-44.9, adult Code(s): E66.01 - MORBID (SEVERE) OBESITY DUE TO EXCESS CALORIES; Z68.41 - BODY MASS INDEX (BMI) 40.0-44.9, ADULT Status: Chronic - Plan continue antibiotics, respiratory therapy, incentive spirometry, out of bed/ ambulate, DVT proph w/SCDs change PO to IV ABx for proper Rx of PNA.restart Tamiflu empirically -: cont nebs,O2 prn.IV steroids.add mucinex,IS,tessalon etc -: increase cardiazem as HR still high-monitor BP . -: cont rest of the home meds as below.cont eliquis. -: likley home in next 24 hours.am labs * . Review of Systems - Review of Systems Constitutional: weakness, malaise. negative: fever, chills, sweats, other ENT: negative: Ear Pain, Ear Discharge, Nose Pain, Nose Discharge, Nose Congestion, Mouth Pain, Mouth Swelling, Throat Pain, Throat Swelling, Other Respiratory: Cough, SOB with Excertion. negative: Dry, Shortness of Breath, Hemoptysis, Pleuritic Pain, Sputum, Wheezing Cardiovascular: negative: chest pain, palpitations, orthopnea, paroxysmal nocturnal dyspnea, edema, light headedness, other Gastrointestinal: negative: Nausea, Vomiting, Abdominal Pain, Diarrhea, Constipation, Melena, Hematochezia, Other Genitourinary: negative: Dysuria, Frequency, Incontinence, Hematuria, Retention , Other Musculoskeletal: negative: Neck Pain, Shoulder Pain, Arm Pain, Back Pain, Hand Pain, Leg Pain, Foot Pain, Other Neurological: negative: Weakness, Numbness, Incoordination, Change in Speech, Confusion, Seizures, Other - Medications/Allergies Allergies/Adverse Reactions: Allergies Allergy/AdvReac Type Severity Reaction Status Date / Time No Known Allergies Allergy Verified 02/19/17 03:46 Medications: Current Medications Albuterol/Ipratropium (Duoneb) 3 ml NEB [id number] [facility] Last Admin: 02/20/17 08:50 Dose: 3 ml Apixaban (Eliquis) 5 mg PO BID [facility] Last Admin: 02/20/17 08:13 Dose: 5 mg Bismuth Subsalicylate (Pepto Bismol) 1 tab PO Q1HR PRN PRN Reason: Diarrhea/Loose Stools Last Admin: 02/19/17 17:08 Dose: 1 tab Cyclobenzaprine HCl (Flexeril) 10 mg PO TID PRN PRN Reason: Muscle Spasm Diltiazem HCl (Cardizem Cd) 240 mg PO DAILY [facility] Last Admin: 02/20/17 10:39 Dose: Not Given Sodium Chloride (Normal Saline 0.9%) 1,000 mls @ 125 mls/hr IV .Q8H [facility] Last Admin: 02/20/17 05:13 Dose: 1,000 mls Levofloxacin 750 mg/ Device 150 mls @ 100 mls/hr IVPB 0900 [facility] Last Admin: 02/20/17 10:23 Dose: 150 mls Methylprednisolone Sodium Succinate (Solu-Medrol) 40 mg IVP Q6HR [facility] Last Admin: 02/20/17 12:14 Dose: 40 mg Oseltamivir Phosphate (Tamiflu) 75 mg PO BID [facility] Stop: 02/24/17 21:01 Sodium Chloride (Flush - Normal Saline) 10 ml IVF Q12HR [facility] Last Admin: 02/20/17 08:16 Dose: Not Given Sodium Chloride (Flush - Normal Saline) 10 ml IVF PRN PRN PRN Reason: Saline Flush Tramadol HCl (Ultram) 50 mg PO Q6H PRN PRN Reason: Pain
[2017-02-20] MEDS ORDERED: Benzonatate 100 MG CAP PO PRN (14:22)
[2017-02-20] MEDS: guaiFENesin ER 600 MG TAB PO SCH (20:14)
[2017-02-20] MEDS: Oseltamivir 75 MG CAP PO SCH (20:14)
[2017-02-21] MEDS: Sodium Chloride 0.9% 1,000 ML IV SCH (04:27)
[2017-02-21 06:23] LABS: Anion Gap 12 mmol/L (10-20); BUN (Urea Nitrogen) 17 mg/dL (9.8-20.1); Calc. Creatinine Clearance 128 mL/min (70-130); Calcium 9.6 mg/dL (7.8-10.44); Carbon Dioxide 23 mmol/L (23-31); Chloride 109 mmol/L (98-107); Estimated GFR-MDRD 86; Glucose 284 mg/dL (80-115); Potassium 4.4 mmol/L (3.5-5.1); Sodium 140 mmol/L (136-145)
[2017-02-21] MEDS: Apixaban 5 MG TAB PO SCH ×2 (08:09→20:33)
[2017-02-21] MEDS: guaiFENesin ER 600 MG TAB PO SCH ×2 (08:09→20:33)
[2017-02-21] MEDS: Oseltamivir 75 MG CAP PO SCH ×2 (08:21→20:33)
[2017-02-21] MEDS ORDERED: Digoxin 0.5 MG/2 ML AMP SLOW IVP SCH (10:30)
[2017-02-21] MEDS ORDERED: Diltiazem HCl SR 60 mg Capsule PO SCH (12:30)
--- NOTE | 2017-02-21 14:46 | PDOC.PN ---
- Subjective Encounter Start Date: 02/21/17 Encounter Start Time: 14:45 Subjective: feels better. no more SOB/COUGH - Objective MAR Reviewed: Yes Vital Signs & Weight: Vital Signs (12 hours) Temp Pulse Resp BP BP Pulse Ox 02/21/17 11:38 97.9 F 109 H 18 166/93 H 100 02/21/17 10:50 117 H 02/21/17 07:49 98.2 F 117 H 20 02/21/17 07:44 95 02/21/17 07:40 117 H 20 95 02/21/17 07:00 97.8 F 115 H 18 142/83 H 95 02/21/17 04:00 95 18 157/82 H 98 I&O: 02/20/17 02/21/17 02/22/17 06:59 06:59 06:59 Intake Total 1999 Balance 1999 Result Diagrams: 02/18/17 21:07 02/21/17 05:44 Radiology Reviewed by me: Yes Phys Exam - Physical Examination Constitutional: NAD HEENT: PERRLA, moist MMs, sclera anicteric, oral pharynx no lesions Neck: no nodes, no JVD, supple, full ROM Respiratory: no wheezing, no rales, no rhonchi, clear to auscultation bilateral Cardiovascular: no significant murmur tachy Gastrointestinal: soft, non-tender, no distention, positive bowel sounds Musculoskeletal: no edema, pulses present Neurological: non-focal, normal sensation, moves all 4 limbs Psychiatric: normal affect, A&O x 3 Skin: no rash Dx/Plan (1) PNA (pneumonia) Code(s): J18.9 - PNEUMONIA, UNSPECIFIED ORGANISM Status: Acute (2) Chronic atrial fibrillation with RVR Code(s): I48.2 - CHRONIC ATRIAL FIBRILLATION Status: Chronic (3) Chronic anticoagulation Code(s): Z79.01 - JAIL (CURRENT) USE OF ANTICOAGULANTS Status: Chronic (4) Dyslipidemia Code(s): E78.5 - HYPERLIPIDEMIA, UNSPECIFIED Status: Chronic (5) Hypertension Code(s): I10 - ESSENTIAL (PRIMARY) HYPERTENSION Status: Chronic (6) Morbid obesity with BMI of 40.0-44.9, adult Code(s): E66.01 - MORBID (SEVERE) OBESITY DUE TO EXCESS CALORIES; Z68.41 - BODY MASS INDEX (BMI) 40.0-44.9, ADULT Status: Chronic - Plan DVT proph w/SCDs HR high.add IV Digoxin once ,them PO daily.increase Cardiazem -: monitor. -: not ready for DC yet as HR high w A-fib.cont eliquis. -: cont supportive care -: re-eval in am for DC * . Review of Systems - Review of Systems Constitutional: weakness, malaise. negative: fever, chills, sweats, other ENT: negative: Ear Pain, Ear Discharge, Nose Pain, Nose Discharge, Nose Congestion, Mouth Pain, Mouth Swelling, Throat Pain, Throat Swelling, Other Respiratory: negative: Cough, Dry, Shortness of Breath, Hemoptysis, SOB with Excertion, Pleuritic Pain, Sputum, Wheezing Cardiovascular: negative: chest pain, palpitations, orthopnea, paroxysmal nocturnal dyspnea, edema, light headedness, other Gastrointestinal: negative: Nausea, Vomiting, Abdominal Pain, Diarrhea, Constipation, Melena, Hematochezia, Other Genitourinary: negative: Dysuria, Frequency, Incontinence, Hematuria, Retention , Other Musculoskeletal: negative: Neck Pain, Shoulder Pain, Arm Pain, Back Pain, Hand Pain, Leg Pain, Foot Pain, Other Neurological: negative: Weakness, Numbness, Incoordination, Change in Speech, Confusion, Seizures, Other - Medications/Allergies Allergies/Adverse Reactions: Allergies Allergy/AdvReac Type Severity Reaction Status Date / Time No Known Allergies Allergy Verified 02/19/17 03:46 Medications: Current Medications Albuterol/Ipratropium (Duoneb) 3 ml NEB [id number] [facility] Last Admin: 02/21/17 07:40 Dose: 3 ml Apixaban (Eliquis) 5 mg PO BID [facility] Last Admin: 02/21/17 08:09 Dose: 5 mg Benzonatate (Tessalon) 100 mg PO Q4H PRN PRN Reason: Cough Bismuth Subsalicylate (Pepto Bismol) 1 tab PO Q1HR PRN PRN Reason: Diarrhea/Loose Stools Last Admin: 02/19/17 17:08 Dose: 1 tab Cyclobenzaprine HCl (Flexeril) 10 mg PO TID PRN PRN Reason: Muscle Spasm Digoxin (Lanoxin) 0.125 mg PO DAILY [facility] Diltiazem HCl (Cardizem Cd) 300 mg PO DAILY [facility] Guaifenesin (Mucinex) 1,200 mg PO Q12HR [facility] Last Admin: 02/21/17 08:09 Dose: 1,200 mg Levofloxacin 750 mg/ Device 150 mls @ 100 mls/hr IVPB 0900 [facility] Last Admin: 02/21/17 08:08 Dose: 150 mls Methylprednisolone Sodium Succinate (Solu-Medrol) 40 mg IVP BID [facility] Last Admin: 02/21/17 12:28 Dose: Not Given Oseltamivir Phosphate (Tamiflu) 75 mg PO BID [facility] Stop: 02/24/17 21:01 Last Admin: 02/21/17 08:21 Dose: 75 mg Sodium Chloride (Flush - Normal Saline) 10 ml IVF Q12HR [facility] Last Admin: 02/21/17 08:22 Dose: Not Given Sodium Chloride (Flush - Normal Saline) 10 ml IVF PRN PRN PRN Reason: Saline Flush Tramadol HCl (Ultram) 50 mg PO Q6H PRN PRN Reason: Pain
[2017-02-22] MEDS: Oseltamivir 75 MG CAP PO SCH (08:48)
[2017-02-22] MEDS: guaiFENesin ER 600 MG TAB PO SCH (08:48)
[2017-02-22] MEDS: Apixaban 5 MG TAB PO SCH (08:48)
[2017-02-22] MEDS ORDERED: Diltiazem HCl CD 300 mg Capsule PO SCH (09:00)
[2017-02-22] MEDS ORDERED: Digoxin 0.125 MG TAB PO SCH (09:00)
--- NOTE | 2017-02-22 14:46 | PDOC.PN ---
- Subjective Encounter Start Date: 02/22/17 Encounter Start Time: 14:44 Subjective: feels much better. -: no cough/SOB.HR still high - Objective MAR Reviewed: Yes Vital Signs & Weight: Vital Signs (12 hours) Temp Pulse Resp BP BP Pulse Ox 02/22/17 11:31 97.5 F L 107 H 18 128/87 97 02/22/17 09:02 95 02/22/17 08:58 122 H 24 H 95 02/22/17 08:48 125 H 02/22/17 07:36 97.7 F 126 H 18 02/22/17 07:21 97.7 F 126 H 18 170/99 H 96 02/22/17 03:45 97.7 F 100 20 138/93 H 98 Weight Weight 272 lb 6.4 oz I&O: 02/21/17 02/22/17 02/23/17 06:59 06:59 06:59 Intake Total 1999 2129 Balance 1999 2129 Result Diagrams: 02/18/17 21:07 02/21/17 05:44 Phys Exam - Physical Examination Constitutional: NAD HEENT: PERRLA, moist MMs, sclera anicteric, oral pharynx no lesions Neck: no nodes, no JVD, supple, full ROM Respiratory: no wheezing, no rales, no rhonchi, clear to auscultation bilateral Cardiovascular: irregular tachy Gastrointestinal: soft, non-tender, no distention, positive bowel sounds Musculoskeletal: no edema, pulses present Neurological: non-focal, normal sensation, moves all 4 limbs Dx/Plan (1) PNA (pneumonia) Code(s): J18.9 - PNEUMONIA, UNSPECIFIED ORGANISM Status: Acute (2) Chronic atrial fibrillation with RVR Code(s): I48.2 - CHRONIC ATRIAL FIBRILLATION Status: Chronic (3) Chronic anticoagulation Code(s): Z79.01 - [facility] (CURRENT) USE OF ANTICOAGULANTS Status: Chronic (4) Dyslipidemia Code(s): E78.5 - HYPERLIPIDEMIA, UNSPECIFIED Status: Chronic (5) Hypertension Code(s): I10 - ESSENTIAL (PRIMARY) HYPERTENSION Status: Chronic (6) Morbid obesity with BMI of 40.0-44.9, adult Code(s): E66.01 - MORBID (SEVERE) OBESITY DUE TO EXCESS CALORIES; Z68.41 - BODY MASS INDEX (BMI) 40.0-44.9, ADULT Status: Chronic - Plan continue antibiotics, respiratory therapy, incentive spirometry, out of bed/ ambulate, DVT proph w/SCDs HR still high.will consult cardiology for RVR as seen by them previously -: cont eliquis. -: if HR better,DC home * . Review of Systems - Review of Systems Constitutional: negative: fever, chills, sweats, weakness, malaise, other Respiratory: negative: Cough, Dry, Shortness of Breath, Hemoptysis, SOB with Excertion, Pleuritic Pain, Sputum, Wheezing Cardiovascular: negative: chest pain, palpitations, orthopnea, paroxysmal nocturnal dyspnea, edema, light headedness, other Gastrointestinal: negative: Nausea, Vomiting, Abdominal Pain, Diarrhea, Constipation, Melena, Hematochezia, Other Genitourinary: negative: Dysuria, Frequency, Incontinence, Hematuria, Retention , Other Musculoskeletal: negative: Neck Pain, Shoulder Pain, Arm Pain, Back Pain, Hand Pain, Leg Pain, Foot Pain, Other Neurological: negative: Weakness, Numbness, Incoordination, Change in Speech, Confusion, Seizures, Other - Medications/Allergies Allergies/Adverse Reactions: Allergies Allergy/AdvReac Type Severity Reaction Status Date / Time No Known Allergies Allergy Verified 02/19/17 03:46 Medications: Current Medications Albuterol/Ipratropium (Duoneb) 3 ml NEB [id number] [facility] Last Admin: 02/22/17 08:58 Dose: 3 ml Apixaban (Eliquis) 5 mg PO BID [facility] Last Admin: 02/22/17 08:48 Dose: 5 mg Benzonatate (Tessalon) 100 mg PO Q4H PRN PRN Reason: Cough Bismuth Subsalicylate (Pepto Bismol) 1 tab PO Q1HR PRN PRN Reason: Diarrhea/Loose Stools Last Admin: 02/19/17 17:08 Dose: 1 tab Cyclobenzaprine HCl (Flexeril) 10 mg PO TID PRN PRN Reason: Muscle Spasm Diltiazem HCl (Cardizem Cd) 300 mg PO DAILY [facility] Last Admin: 02/22/17 08:48 Dose: 300 mg Guaifenesin (Mucinex) 1,200 mg PO Q12HR [facility] Last Admin: 02/22/17 08:48 Dose: 1,200 mg Levofloxacin 750 mg/ Device 150 mls @ 100 mls/hr IVPB 0900 [facility] Last Admin: 02/22/17 08:48 Dose: 150 mls Methylprednisolone Sodium Succinate (Solu-Medrol) 40 mg IVP DAILY [facility] Last Admin: 02/22/17 09:09 Dose: 40 mg Metoprolol Succinate (Toprol Xl) 50 mg PO DAILY [facility] Metoprolol Succinate (Toprol Xl) 50 mg PO NOW [facility] Stop: 02/22/17 16:30 Oseltamivir Phosphate (Tamiflu) 75 mg PO BID [facility] Stop: 02/24/17 21:01 Last Admin: 02/22/17 08:48 Dose: 75 mg Sodium Chloride (Flush - Normal Saline) 10 ml IVF Q12HR [facility] Last Admin: 02/22/17 08:49 Dose: 10 ml Sodium Chloride (Flush - Normal Saline) 10 ml IVF PRN PRN PRN Reason: Saline Flush Tramadol HCl (Ultram) 50 mg PO Q6H PRN PRN Reason: Pain
[2017-02-22 16:02] VITALS: BP 168/83; TEMP 97.7
--- NOTE | 2017-02-22 16:24 | CON ---
DATE OF CONSULT: HISTORY OF PRESENT ILLNESS: Patient is a pleasant 66-year-old woman who presents for evaluation of a rapid heart rate. The patient has a history of atrial fibrillation. She was seen in January and found to have atrial fibrillation with rapid ventricular response. She was started on Eliquis and Cardizem to control her heart rate. She has follow up at [facility] with her primary physician. She states she was feeling well until a few days ago when she started having dyspnea. She denied having any chest discomfort. The patient denies having any palpitations. She was admitted with presumed pneumonia. She was started on antibiotics. The patient was noted to have a rapid heart rate despite being on Cardizem. The patient denies having any palpitation. She denies having any chest discomfort. PAST MEDICAL HISTORY: 1. Atrial fibrillation. 2. Hypertension. 3. Hypercholesterolemia. PAST SURGICAL HISTORY: Tubal ligation and a . SOCIAL HISTORY: Nonsmoker. MEDICATIONS ON ADMISSION: Apixaban 5 b.i.d., Flexeril 10 t.i.d., Cardizem 240 daily,and Pepcid 20 daily. FAMILY HISTORY: Positive family history of heart disease. ALLERGIES: No known drug allergies. REVIEW OF SYSTEMS: Ten-point system otherwise unremarkable. No history of bright red blood per rectum, hematuria. PHYSICAL EXAMINATION: GENERAL: Obese woman in no distress. VITAL SIGNS: Blood pressure is 128/87, heart rate is approximately 120 and irregular. NECK: No jugular venous distention. LUNGS: Coarse breath sounds bilateral. HEART: Iregular rate and rhythm, normal S1, S2, no murmurs. ABDOMEN: Distended. EXTREMITIES: Showed trace edema. SKIN: Warm and dry. NEUROLOGIC: Nonfocal. VASCULAR: Radial pulses are 2+. LABORATORY: Sodium 140, potassium 4.4, chloride 109, bicarbonate 23, BUN 17, creatinine 0.8 , glucose was 284. White blood cell count 9.8, hemoglobin 13.1, hematocrit 41, and platelets were 186. Her EKG was atrial fibrillation with a nonspecific ST abnormality. IMPRESSION: 1. Atrial fibrillation with a rapid ventricular response. 2. Presumed pneumonia. 3. Hypertension. 4. Morbid obesity. This patient presents with pneumonia and is being treated for influenza. The patient is asymptomatic, but has a very rapid heart rate despite being on Cardizem .With no history of COPD or asthma, I would recommend she start beta- joanna therapy. We will start Toprol 50 XL daily. If her heart rate continues to be elevated, I would consider electrical cardioversion. The patient has ALEXIS -VAS score of 3 and should remain on Apixaban. I explained the life threatening consequences to the patient from not being compliant with this medication. We will follow this patient with you through her hospitalization. BRUNA
--- NOTE | 2017-02-22 16:48 | CON ---
HISTORY OF PRESENT ILLNESS: Patient is a pleasant 66-year-old woman who presents for evaluation of a rapid heart rate. The patient has a history of atrial fibrillation. She was seen in January and found to have atrial fibrillation with rapid ventricular response. She was started on Eliquis and Cardizem to control her heart rate. She has follow up at [facility] with her primary physician. She states she was feeling well until a few days ago when she felt dyspnea. She denied having any chest discomfort. The patient denies having any palpitations. She was admitted with presumed pneumonia. She was started on antibiotics. The patient was noted to have a rapid heart rate despite being on Cardizem. The patient denies having any palpitation. She denies having any chest discomfort. PAST MEDICAL HISTORY: 1. Atrial fibrillation. 2. Hypertension. 3. Hypercholesterolemia. PAST SURGICAL HISTORY: Tubal ligation and a . SOCIAL HISTORY: Nonsmoker. MEDICATIONS ON ADMISSION: Apixaban 5 b.i.d., Flexeril 10 t.i.d., Cardizem 240 daily, Pepcid 20 daily. FAMILY HISTORY: Positive family history of heart disease. ALLERGIES: No known drug allergies. REVIEW OF SYSTEMS: Ten-point system otherwise unremarkable. No history of bright red blood per rectum, hematuria. Ten-point system otherwise unremarkable. PHYSICAL EXAMINATION: GENERAL: Obese woman in no distress. VITAL SIGNS: Blood pressure is 128/87, heart rate is approximately 120 and irregular. NECK: No jugular venous distention. LUNGS: Coarse breath sounds bilateral. HEART: Irregular rate and rhythm, normal S1, S2, no murmurs. ABDOMEN: Distended. EXTREMITIES: Showed trace edema. SKIN: Warm and dry. NEUROLOGIC: Nonfocal. VASCULAR: Radial pulses are 2+. LABORATORY: Sodium 140, potassium 4.4, chloride 109, bicarbonate 23, BUN 17, creatinine 0.8 , glucose was 284. White blood cell count 9.8, hemoglobin 13.1, hematocrit 41, and platelets were 186. Her EKG was atrial fibrillation with a nonspecific ST abnormality. IMPRESSION: 1. Atrial fibrillation with a rapid ventricular response. 2. Presumed pneumonia. 3. Hypertension. 4. Morbid obesity. This patient presents with pneumonia and is being treated influenza. The patient is asymptomatic, but has a very rapid heart rate despite being on Cardizem. With no history of COPD or asthma I would recommend she start beta- joanna therapy. We will start Toprol 50 XL daily. If her heart rate continues to be elevated, I would consider electrical cardioversion. The patient has ALEXIS -VAS score of 3 and should remain on Apixaban. I explained the life threatening consequences to the patient from not being compliant with this medication. We will follow this patient with you through her hospitalization. LAMARD
--- NOTE | 2017-02-22 22:55 | DIS ---
DATE OF ADMISSION: 02/19/2017 DATE OF DISCHARGE: 02/22/2017 CONDITION AT THE TIME OF DISCHARGE: Stable and improved. DISCHARGE DIAGNOSES: 1. Pneumonia. 2. Chronic atrial fibrillation with rapid ventricular rate. 3. Morbid obesity. 4. Chronic anticoagulation. 5. Dyslipidemia. 6. Hypertension. CONSULTATION INHOUSE: Cardiology, Dr. Dao. PROCEDURES DONE INHOUSE: Include CT angio of the thorax which is negative for pulmonary embolism, bu t shows pneumonia. DISCHARGE MEDICATIONS: New medications, 1. Diltiazem 300 mg daily dose has been increased. 2. Toprol-XL 50 mg daily. 3. Levofloxacin 750 mg p.o. daily for 7 more days. 4. Florastor 250 mg p.o. daily for 10 days. 5. Tamiflu 75 mg p.o. b.i.d. to finish the course for 10 days. 6. Nebulizer as needed. Resume home medications. PRIMARY CARE PHYSICIAN: Dr. Da Haywood at [facility]. HISTORY: Ms. Worley is a 66-year-old -[place] female with history of chronic atrial fibrilla tion on chronic anticoagulation with Eliquis, who presented to the emergency room with complaints of shortness of breath and fatigue. She underwent a CT angio of the thorax which was negative for pulmo nary embolism, but showed right lower lobe pneumonia. She was also somewhat hypoxic upon presentatio n. She was started on empiric antibiotics and was admitted for further evaluation. EKG showed atria l fibrillation with RVR on presentation. HOSPITAL COURSE: The patient had significant improvement clinically with IV steroids and IV antibiot ics and the symptoms of her pneumonia. She was continued on Eliquis and Cardizem, but her heart rate was rather uncontrolled. Her Cardizem was increased and eventually Cardiology to be consulted and t yu added beta joanna which she tolerated very well with adequate control of her heart rate. She wi ll be going home on increased doses of Cardizem as well as new Toprol-XL as above. She is instructed to follow up with her fire regulator, Dr. Stuart as an outpatient. The patient verbalized understa nding. She was seen and examined prior to discharge. Please see hospitalist progress note from today's date for further details.
--- NOTE | 2017-03-21 14:47 | EKG ---
Test Reason : Blood Pressure : / mmHG Vent. Rate : 115 BPM Atrial Rate : 119 BPM P-R Int : 000 ms QRS Dur : 072 ms QT Int : 366 ms P-R-T Axes : 000 030 013 degrees QTc Int : 506 ms Atrial fibrillation with rapid ventricular response Abnormal ECG Confirmed by BUCKY REDDING ([id number]), editor sound STALIN SALAS ([id number]) on 03/21/2017 2:47:27 PM Referred By: Confirmed By:BUCKY REDDING
== END 2017-02-22 16:40 | disposition home or self-care (01) | DRG 194 ==
LOC: ERS 17:09 → 2SW 02-19 01:30 → OBSVTOIN 02-19 08:13
PROVIDERS: ADMIT Internal Medicine; ATTEND Internal Medicine
DX: J18.9 Pneumonia, unspecified organism (principal); Z68.42 Body mass index [BMI] 45.0-49.9, adult; I48.91 Unspecified atrial fibrillation; E66.01 Morbid (severe) obesity due to excess calories; J11.00 Influenza due to unidentified influenza virus with unspecified type of pneumonia; I10 Essential (primary) hypertension; K21.9 Gastro-esophageal reflux disease without esophagitis; M19.90 Unspecified osteoarthritis, unspecified site; B34.9 Viral infection, unspecified; Z79.01 Long term (current) use of anticoagulants; E78.5 Hyperlipidemia, unspecified
CPT/HCPCS: 36415; 71045; 71275; 80048; 80053; 82553; 83605; 83690; 83880; 84443; 84484; 85025; 85379; 87804; 93005; 94640; 96374; A4216; J1160; J1956; J2920; J7620

== ENCOUNTER 2017-03-24 20:07 | Emergency (ER) | payer BC, MEDICARE ==
[2017-03-24 21:11] LABS: #Basophils 0.1 thou/uL (0.0-0.2); #Eosinphils 0.1 thou/uL (0.0-0.7); #Lymphocytes 2.5 thou/uL (1.20-3.40); #Monocytes 0.7 thou/uL (0.11-0.59); #Neutrophils 4.9 thou/uL (1.40-6.50); %Basophils 0.8 % (0.0-1.0); %Lymphocytes 30.2 % (21.0-51.0); Hemoglobin 13.3 g/dL (12.0-16.0); Mean Corpuscular HGB CONC 31.9 g/dL (32.0-36.0); Mean Corpuscular Hemoglobin 28.9 pg (27.0-31.0); Mean Corpuscular Volume 90.8 fl (81.0-99.0); Mean Platelet Volume 8.5 fL (7.4-10.4); Platelet Count 166 thou/uL (130-400); RBC Distribution Width 12.8 % (11.5-14.5); White Blood Cell (WBC) Count 8.3 thou/uL (4.8-10.8)
[2017-03-24 21:34] LABS: ALT (SGPT) 52 U/L (8-55); AST (SGOT) 41 U/L (5-34); Albumin 4.1 g/dL (3.4-4.8); Alkaline Phosphatase 97 U/L (40-150); Anion Gap 11 mmol/L (10-20); BUN (Urea Nitrogen) 14 mg/dL (9.8-20.1); Bilirubin, Total 0.5 mg/dL (0.2-1.2); Calc. Creatinine Clearance 0 mL/min (70-130); Calcium 9.3 mg/dL (7.8-10.44); Carbon Dioxide 27 mmol/L (23-31); Chloride 108 mmol/L (98-107); Estimated GFR-MDRD Greater than 90; Globulin 2.8 g/dL (2.4-3.5); Glucose 78 mg/dL (80-115); INR-International Normal Ratio 1.1; PTT 29.6 SEC (22.9-36.1); Potassium 3.7 mmol/L (3.5-5.1); Protein, Total 6.9 g/dL (6.0-8.3); Prothrombin Time 14.2 SEC (12.0-14.7); Sodium 142 mmol/L (136-145)
[2017-03-24 21:35] LABS: D-Dimer Test 1.15 *mcg/mL (0.27-0.43)
[2017-03-24 21:35] LABS: Bilirubin Negative (Negative); Blood, Urine Negative (Negative); Clarity CLOUDY (Clear); Glucose, Urine (Dipstick) Negative (Negative); Leukocyte Negative (Negative); Nitrite Negative (Negative); Protein, Urine (Dipstick) Trace mg/dL (Neg-Trace); Specific Gravity, Urine 1.028 (1.002-1.036); Urobilinogen 0.2 mg/dL (0.2-1.0)
[2017-03-24 21:37] LABS: CK (CPK) 123 U/L (29-168); Lipase 16 U/L (8-78)
[2017-03-24 21:42] LABS: CKMB 1.9 ng/mL (0-6.6); Troponin I 0.022 ng/mL (< 0.028)
--- NOTE | 2017-03-24 21:56 | RAD ---
PORTABLE CHEST: History: Wheezing, cough. Comparison: 02-18-17 FINDINGS/IMPRESSION: Cardiomegaly. Mild vascular congestion. No focal infiltrate or significant effusion. POS: [facility]
--- NOTE | 2017-03-24 22:35 | CT ---
CT PULMONARY ANGIO WITH CONTRAST: Technique: Multiple axial tomograms were obtained were obtained through the chest with pulmonary tony o protocol, multiplanar reconstruction and 3D post processing. History: Chest pain. Elevated D-Dimer. FINDINGS: Pulmonary arteries are normally opacified. No evidence of pulmonary embolus. There is a small right pleural effusion. There is mild vascular engorgement. There is linear opacity along the fissure on the left, probably representing atelectasis. There are other areas, however, of ground glass opacity in the peripheral left lower lobe which may represent areas of early interstitia l edema or infiltrate. Mediastinum is unremarkable. There is a large mass density in the region of the right lobe of the thyroid measuring up to 5 cm AP dimension. Large thyroid mass is suspected. Recommend elective follow up thyroid ultrasound exam. IMPRESSION: 1. No evidence of pulmonary embolus. 2. Cardiomegaly with mild vascular engorgement. 3. Linear atelectasis or infiltrate along the fissure on the left. Ground glass opacity in the periph eral left lower lobe representing either early interstitial edema or infiltrate. 4. Evidence of a mass involving the right lobe of the thyroid. Recommend elective follow up. POS: [facility]
[2017-03-24 22:58] LABS: Amphetamine Not Detected (NotDetected); Barbiturates Screen Not Detected (NotDetected); Benzodiazepine Screen Not Detected (NotDetected); Cocaine Metabolite Screen Not Detected (NotDetected); Medtox Control Line Valid? VALID (VALID); Medtox Reader # READER 1; Methadone Not Detected (NotDetected); Methamphetamine Detected (NotDetected); Opiate Screen Not Detected (NotDetected); Oxycodone Screen Not Detected (NotDetected); Phencyclidine (PCP) Not Detected (NotDetected); THC/Cannabinoid Screen Detected (NotDetected); Tricyclic Screen Not Detected (NotDetected)
[2017-03-24 23:00] LABS: Acetaminophen Less than 6.0 mcg/mL (10.0-30.0); Alcohol Less than 10 mg/dL (Less than 10); Salicylate Less than 8.0 mg/dL (15.0-30.0)
== END 2017-03-24 23:20 | disposition home or self-care (01) ==
LOC: ERS 20:07
DX: I11.0 Hypertensive heart disease with heart failure (principal); I50.9 Heart failure, unspecified; F15.10 Other stimulant abuse, uncomplicated; E07.9 Disorder of thyroid, unspecified; I48.91 Unspecified atrial fibrillation; M19.90 Unspecified osteoarthritis, unspecified site
CPT/HCPCS: 71045; 71275; 80053; 80306; 80307; 81003; 82550; 82553; 83605; 83690; 83880; 84443; 84484; 85025; 85379; 85610; 85730; 87040; 87086; 93005; 94760; 96360

== ENCOUNTER 2017-06-06 07:50 | Emergency (ER) | payer BC, MEDICARE, OTHER, SELFPAY ==
[2017-06-06 08:32] LABS: #Eosinphils 0.1 thou/uL (0.0-0.7); #Lymphocytes 1.6 thou/uL (1.20-3.40); #Monocytes 0.5 thou/uL (0.11-0.59); #Neutrophils 4.8 thou/uL (1.40-6.50); %Basophils 0.1 % (0.0-1.0); %Eosinophils 0.9 % (0.0-10.0); %Lymphocytes 23.1 % (21.0-51.0); %Monocytes 7.3 % (0.0-10.0); %Neutrophils 68.7 % (42.0-75.0); Hemoglobin 13.8 g/dL (12.0-16.0); Mean Corpuscular HGB CONC 31.9 g/dL (32.0-36.0); Mean Corpuscular Hemoglobin 28.5 pg (27.0-31.0); Mean Corpuscular Volume 89.3 fl (81.0-99.0); Mean Platelet Volume 9.4 fL (7.4-10.4); Platelet Count 146 thou/uL (130-400); RBC Distribution Width 12.5 % (11.5-14.5); Red Blood Cell (RBC) Count 4.85 mill/uL (4.20-5.40)
[2017-06-06 08:39] LABS: INR-International Normal Ratio 1.3; PTT 33.3 SEC (22.9-36.1)
[2017-06-06 08:40] LABS: ALT (SGPT) 42 U/L (8-55); AST (SGOT) 28 U/L (5-34); Albumin 4.3 g/dL (3.4-4.8); Alkaline Phosphatase 92 U/L (40-150); Anion Gap 13 mmol/L (10-20); BUN (Urea Nitrogen) 12 mg/dL (9.8-20.1); Bilirubin, Total 1.7 mg/dL (0.2-1.2); CRP (Inflammatory) 3.57 mg/dL (= or < 0.5); Calc. Creatinine Clearance 0 mL/min (70-130); Calcium 9.9 mg/dL (7.8-10.44); Carbon Dioxide 25 mmol/L (23-31); Chloride 105 mmol/L (98-107); Estimated GFR-MDRD 88; Globulin 2.4 g/dL (2.4-3.5); Glucose 107 mg/dL (80-115); Potassium 3.9 mmol/L (3.5-5.1); Protein, Total 6.7 g/dL (6.0-8.3); Sodium 139 mmol/L (136-145)
[2017-06-06 08:44] LABS: CKMB 1.2 ng/mL (0-6.6); Troponin I Less than 0.010 ng/mL (< 0.028)
[2017-06-06] MEDS ORDERED: Morphine 4 MG/ML VIAL ONE (08:54)
[2017-06-06] MEDS ORDERED: Diltiazem 125 MG/25 ML ONE (08:55)
[2017-06-06 09:46] LABS: Bilirubin Negative (Negative); Blood, Urine Negative (Negative); Clarity CLEAR (Clear); Glucose, Urine (Dipstick) Negative (Negative); Leukocyte Negative (Negative); Nitrite Negative (Negative); Protein, Urine (Dipstick) Negative (Neg-Trace); Specific Gravity, Urine 1.009 (1.002-1.036)
--- NOTE | 2017-06-06 10:47 | CT ---
CT ABDOMEN AND PELVIS WITH IV AND ORAL CONTRAST: Date: 06/06/17 HISTORY: Abdominal pain. Syncope. COMPARISON: 01/28/17. FINDINGS: Small amount of right pleural fluid and basilar atelectasis are now apparent. Gallbladder remains dis tended, similar in appearance to the prior study, with a very small amount of pericholecystic fluid. Given the chronic distention of the gallbladder and lack of stranding in the adjacent fat, this is li shyla not a cause for significant inflammation or a systemic process. The spleen, kidneys, adrenal glands, and pancreas have a normal CT appearance. No evidence of bowel o bstruction. Calcifications associated with the uterus are likely related to mild fibroid disease. IMPRESSION: Small amount of right pleural fluid. No acute abnormalities of the abdomen/pelvis are apparent. POS: [facility]
[2017-06-06] MEDS ORDERED: ISOVUE-370 76%-LOCM 1 ML ONE (16:09)
--- NOTE | 2017-08-09 14:22 | EKG ---
Test Reason : Blood Pressure : / mmHG Vent. Rate : 132 BPM Atrial Rate : 086 BPM P-R Int : 000 ms QRS Dur : 076 ms QT Int : 298 ms P-R-T Axes : 000 066 -39 degrees QTc Int : 441 ms Atrial fibrillation with rapid ventricular response Abnormal QRS-T angle, consider primary T wave abnormality Abnormal ECG Confirmed by BROOKE NELSON, TAQUERIA Godinez ([id number]), makeup editor STALIN SALAS ([id number]) on 08/09/2017 2:21:35 PM Referred By: Confirmed By:TAQUERIA COX MD
== END 2017-06-06 13:38 | disposition home or self-care (01) ==
LOC: ERS 07:50
DX: R10.32 Left lower quadrant pain (principal); R10.31 Right lower quadrant pain; I48.91 Unspecified atrial fibrillation; I10 Essential (primary) hypertension; Z79.899 Other long term (current) drug therapy
CPT/HCPCS: 36415; 74177; 80053; 81003; 82553; 83605; 83690; 84484; 85025; 85610; 85730; 86140; 87040; 87086; 93005; 96374; 96375; J2270

== ENCOUNTER 2017-09-05 09:21 | Emergency (ER) | payer BC, MEDICARE ==
[2017-09-05 09:59] LABS: #Eosinphils 0.1 thou/uL (0.0-0.7); #Lymphocytes 1.7 thou/uL (1.20-3.40); #Monocytes 0.7 thou/uL (0.11-0.59); #Neutrophils 5.5 thou/uL (1.40-6.50); %Basophils 0.5 % (0.0-1.0); %Eosinophils 1.4 % (0.0-10.0); %Lymphocytes 20.5 % (21.0-51.0); %Monocytes 9.2 % (0.0-10.0); %Neutrophils 68.4 % (42.0-75.0); Hemoglobin 13.5 g/dL (12.0-16.0); Mean Corpuscular HGB CONC 32.6 g/dL (32.0-36.0); Mean Corpuscular Hemoglobin 29.1 pg (27.0-31.0); Mean Corpuscular Volume 89.1 fL (78.0-98.0); Mean Platelet Volume 8.3 fL (7.4-10.4); Platelet Count 158 thou/uL (130-400); RBC Distribution Width 13.2 % (11.5-14.5); Red Blood Cell (RBC) Count 4.64 mill/uL (4.20-5.40); White Blood Cell (WBC) Count 8.1 thou/uL (4.8-10.8)
[2017-09-05 10:06] LABS: Bilirubin Negative (Negative); Blood, Urine Negative (Negative); Clarity CLOUDY (Clear); Glucose, Urine (Dipstick) Negative (Negative); Leukocyte Small (Negative); Nitrite Negative (Negative); Protein, Urine (Dipstick) Negative (Neg-Trace); Specific Gravity, Urine 1.021 (1.002-1.036); pH, Urine 7.5 (5.0-9.0)
[2017-09-05 10:10] LABS: Bacteria/HPF 1+ HPF (None Seen); Hyaline Casts/LPF 4-6 HYALINE CAST LPF (0-3 Hyaline); Pathc Cast-AUWi Flag 1.59 (0-2.49); RBC/HPF 0-3 HPF (0-3)
[2017-09-05 10:26] LABS: ALT (SGPT) 24 U/L (8-55); AST (SGOT) 16 U/L (5-34); Albumin 4.1 g/dL (3.4-4.8); Alkaline Phosphatase 87 U/L (40-150); Anion Gap 11 mmol/L (10-20); BUN (Urea Nitrogen) 15 mg/dL (9.8-20.1); Bilirubin, Total 0.4 mg/dL (0.2-1.2); Calc. Creatinine Clearance 0 mL/min (70-130); Calcium 9.6 mg/dL (7.8-10.44); Carbon Dioxide 28 mmol/L (23-31); Chloride 105 mmol/L (98-107); Estimated GFR-MDRD 82; Glucose 92 mg/dL (80-115); Lipase 36 U/L (8-78); Potassium 4.1 mmol/L (3.5-5.1); Protein, Total 7.1 g/dL (6.0-8.3); Sodium 140 mmol/L (136-145)
--- NOTE | 2017-09-05 10:46 | ULT ---
RIGHT UPPER QUADRANT ULTRASOUND: Date: 09/08/17 HISTORY: Right upper quadrant abdominal pain and nausea. COMPARISON: 01/28/17. FINDINGS: Again noted is cholelithiasis with large gallbladder calculus in the gallbladder lumen measuring 2.1 cm. There is mild gallbladder wall thickening measuring 0.4 cm. No pericholecystic fluid is present. The common duct measures 0.4 cm in diameter. The liver is enlarged in craniocaudal dimensions measuring 18.0 cm. The limited visualized portions of the pancreas, as well as visualized portions of the IVC demonstrat e a normal sonographic appearance. The right kidney measures 10.6 cm in length. There is a stable, anechoic cystic structure measuring 2 .0 cm, within the mid portion of the right kidney, demonstrating sonographic characteristics most com patible with a cyst. IMPRESSION: 1. Cholelithiasis with mild gallbladder wall thickening. There is no pericholecystic fluid noted. A sonographic Mckeon's sign was unable to be obtained as the patient was medicated for the examination, limiting evaluation. Cholecystitis in the correct clinical scenario is a possibility given the gallb ladder wall thickening. 3. Common duct is normal in caliber. 4. Mild hepatomegaly. 5. Right renal cyst. POS: [facility]
== END 2017-09-05 10:57 | disposition home or self-care (01) ==
LOC: ERS 09:21
DX: K80.20 Calculus of gallbladder without cholecystitis without obstruction (principal); I48.91 Unspecified atrial fibrillation; M19.90 Unspecified osteoarthritis, unspecified site; I10 Essential (primary) hypertension; Z79.899 Other long term (current) drug therapy
CPT/HCPCS: 76705; 80053; 81003; 81015; 83690; 85025; 96361; 96374; J2270

== ENCOUNTER 2017-11-04 10:20 | Emergency (ER) | payer MEDICARE, MEDICAID ==
[2017-11-04 10:43] LABS: Bilirubin Negative (Negative); Blood, Urine Negative (Negative); Clarity CLOUDY (Clear); Glucose, Urine (Dipstick) Negative (Negative); Leukocyte Negative (Negative); Nitrite Negative (Negative); Protein, Urine (Dipstick) Negative (Neg-Trace); Specific Gravity, Urine 1.027 (1.002-1.036); Urobilinogen 0.2 mg/dL (0.2-1.0); pH, Urine 5.5 (5.0-9.0)
[2017-11-04 11:21] LABS: Hemoglobin 14.2 g/dL (12.0-16.0); Mean Corpuscular HGB CONC 31.9 g/dL (32.0-36.0); Mean Corpuscular Volume 90.9 fL (78.0-98.0); Mean Platelet Volume 9.6 fL (7.4-10.4); Platelet Count 168 thou/uL (130-400); RBC Distribution Width 12.1 % (11.5-14.5); Red Blood Cell (RBC) Count 4.88 mill/uL (4.20-5.40); White Blood Cell (WBC) Count 5.9 thou/uL (4.8-10.8)
[2017-11-04] MEDS ORDERED: Ketorolac Tromethamine 30 MG/ML VIAL ONE (11:22)
[2017-11-04 11:36] LABS: ALT (SGPT) 14 U/L (8-55); AST (SGOT) 15 U/L (5-34); Albumin 4.2 g/dL (3.4-4.8); Alkaline Phosphatase 72 U/L (40-150); Anion Gap 11 mmol/L (10-20); BUN (Urea Nitrogen) 25 mg/dL (9.8-20.1); Bilirubin, Total 0.4 mg/dL (0.2-1.2); Calc. Creatinine Clearance 0 mL/min (70-130); Calcium 9.7 mg/dL (7.8-10.44); Carbon Dioxide 28 mmol/L (23-31); Chloride 104 mmol/L (98-107); Estimated GFR-MDRD 61; Globulin 3.1 g/dL (2.4-3.5); Glucose 101 mg/dL (80-115); Lipase 33 U/L (8-78); Potassium 3.4 mmol/L (3.5-5.1); Protein, Total 7.3 g/dL (6.0-8.3); Sodium 140 mmol/L (136-145)
[2017-11-04 11:46] LABS: Band 2 % (5-11); Eosinophils 2 % (0-10); Lymphocytes 28 % (21-51); MDiff Complete? YES; Monocytes 3 % (0-10); Neutrophil 62 % (42-75); RBC Morphology Normal; Reactive Lymphocytes 2 % (0-10)
[2017-11-04] MEDS ORDERED: Methocarbamol 1 GM in Sodium Chloride 0.9% 250 ML 250 ML IVPB SCH (12:00)
[2017-11-04 12:47] LABS: Troponin I Less than 0.010 ng/mL (< 0.028)
--- NOTE | 2017-11-04 13:52 | CT ---
CT OF ABDOMEN AND PELVIS PERFORMED WITHOUT INTRAVENOUS CONTRAST ENHANCEMENT: Date: 11/04/17 HISTORY: Right flank pain. COMPARISON: 06/06/17 exam. FINDINGS: The lung bases are clear. The liver, spleen, and pancreas regions appear unremarkable. There is some subtle increased attenuati on within the gallbladder. There is a history of gallstones by previous ultrasound. The right and left adrenal glands are normal in appearance. Exophytic hypodensity involving the left kidney is most likely a cyst. No renal calculi are seen. There is what appears to be another cyst in the region of the right renal pelvis. These are stable in size. There is no obstruction or evidence o f ureteral calculi. There is no significant periaortic or mesenteric adenopathy. The appendix is norm al in size. It is retrocecal in location. CT of pelvis was performed without contrast enhancement. Calcified uterine fibroids are present. No e vidence of adenopathy or mass. IMPRESSION: 1. Increased attenuation within the gallbladder. There is a history of gallstones. 2. Small hiatal hernia. 3. Normal appendix. 4. No evidence of renal or ureteral calculi. 5. Calcified uterine fibroids. POS: [facility]
--- NOTE | 2017-11-08 13:24 | EKG ---
Test Reason : Blood Pressure : / mmHG Vent. Rate : 093 BPM Atrial Rate : 113 BPM P-R Int : 000 ms QRS Dur : 088 ms QT Int : 352 ms P-R-T Axes : 000 006 006 degrees QTc Int : 437 ms Atrial fibrillation with premature ventricular or aberrantly conducted complexes Abnormal ECG Confirmed by CLEMENTE YOO ([id number]), international editorial producer LEON MALDONADO ([id number]) on 11/08/2017 1:24:45 PM Referred By: Confirmed By:CLEMENTE YOO
== END 2017-11-04 14:32 | disposition home or self-care (01) ==
LOC: ERS 10:20
DX: M62.838 Other muscle spasm (principal); I48.91 Unspecified atrial fibrillation; I10 Essential (primary) hypertension; F32.9 Major depressive disorder, single episode, unspecified; Z79.899 Other long term (current) drug therapy
CPT/HCPCS: 36415; 74176; 80053; 81003; 82553; 83690; 84484; 85025; 93005; 96365; 96375; J1885; J2800; J7050

== ENCOUNTER 2018-02-13 09:16 | Emergency (ER) | payer MEDICARE, MEDICAID ==
--- NOTE | 2018-02-13 11:02 | RAD ---
THREE VIEWS OF THE RIGHT KNEE: COMPARISON: None. HISTORY: Fall yesterday with right knee pain. COMPARISON: 04/14/2013. FINDINGS: Three views of the right knee show no evidence of acute fracture or dislocation. There is moderate t ricompartmental joint space narrowing and osteophyte formation consistent with osteoarthritis. No kn ee effusion is seen. IMPRESSION: Moderate degenerative changes of the right knee without acute osseous abnormality. POS: [facility]
== END 2018-02-13 10:46 | disposition home or self-care (01) ==
LOC: ERS 09:16
DX: R10.32 Left lower quadrant pain (principal); I48.91 Unspecified atrial fibrillation; I10 Essential (primary) hypertension; M19.90 Unspecified osteoarthritis, unspecified site; F32.9 Major depressive disorder, single episode, unspecified; Z79.899 Other long term (current) drug therapy; Z79.1 Long term (current) use of non-steroidal anti-inflammatories (NSAID)

== ENCOUNTER 2018-03-18 05:55 | Inpatient (IN) | payer MEDICARE, MEDICAID ==
[2018-03-18 06:24] LABS: #Lymphocytes 0.3 thou/uL (1.20-3.40); #Monocytes 0.8 thou/uL (0.11-0.59); #Neutrophils 5.7 thou/uL (1.40-6.50); %Eosinophils 0.2 % (0.0-10.0); %Monocytes 11.1 % (0.0-10.0); %Neutrophils 83.7 % (42.0-75.0); Mean Corpuscular HGB CONC 32.2 g/dL (32.0-36.0); Mean Corpuscular Hemoglobin 29.4 pg (27.0-31.0); Mean Corpuscular Volume 91.5 fL (78.0-98.0); Mean Platelet Volume 9.1 fL (7.4-10.4); Platelet Count 141 thou/uL (130-400); RBC Distribution Width 12.1 % (11.5-14.5); Red Blood Cell (RBC) Count 4.43 mill/uL (4.20-5.40); White Blood Cell (WBC) Count 6.9 thou/uL (4.8-10.8)
[2018-03-18] MEDS ORDERED: Ondansetron PF 4 MG/2 ML Vial ONE (06:34)
[2018-03-18] MEDS ORDERED: Morphine 4 MG/ML VIAL ONE (06:34)
[2018-03-18 06:47] LABS: ALT (SGPT) 40 U/L (8-55); AST (SGOT) 25 U/L (5-34); Albumin 4.2 g/dL (3.4-4.8); Alkaline Phosphatase 79 U/L (40-150); Anion Gap 16 mmol/L (10-20); BUN (Urea Nitrogen) 7 mg/dL (9.8-20.1); Bilirubin, Total 0.7 mg/dL (0.2-1.2); Calc. Creatinine Clearance 0 mL/min (70-130); Calcium 9.3 mg/dL (7.8-10.44); Carbon Dioxide 24 mmol/L (23-31); Chloride 97 mmol/L (98-107); Estimated GFR-MDRD Greater than 90; Globulin 2.7 g/dL (2.4-3.5); Glucose 137 mg/dL (80-115); Lipase 5 U/L (8-78); Potassium 3.3 mmol/L (3.5-5.1); Protein, Total 6.9 g/dL (6.0-8.3); Sodium 134 mmol/L (136-145)
[2018-03-18 07:09] LABS: CKMB 1.7 ng/mL (0-6.6)
[2018-03-18] MEDS ORDERED: Acetaminophen 500 MG TAB ONE (07:34)
[2018-03-18] MEDS ORDERED: Dicyclomine 20 MG TAB ONE (07:42)
[2018-03-18] MEDS ORDERED: Azithromycin 500 MG VIAL ONE (07:42)
[2018-03-18] MEDS ORDERED: cefTRIAXone\\ROCEPHIN 2 GM VIAL ONE (07:42)
[2018-03-18] MEDS ORDERED: Diltiazem 125 MG/25 ML ONE (08:14)
--- NOTE | 2018-03-18 08:15 | RAD ---
CHEST 1 VIEW: Date: 03/18/18 INDICATION: Upper abdominal pain and cough. COMPARISON: Prior exam dated 03/24/17. IMPRESSION: There is cardiomegaly with pulmonary vascular congestion. There is perihilar air space opacity, most prominent within the right infrahilar region and left suprahilar region. This may reflect edema or pn eumonia. No pleural effusion is evident. No acute osseous abnormality is evident. POS: BH
--- NOTE | 2018-03-18 08:34 | ULT ---
RIGHT UPPER QUADRANT ULTRASOUND: Date: 03/18/18 INDICATION: Right upper quadrant pain. FINDINGS: No focal hepatic lesion is evident. Small gallstone with mild gallbladder sludge is present. Gallblad estefany wall is 2.4 mm. No pericholecystic fluid is evident. No sonographic Mckeon's sign is reported. Co mmon bile duct measures 2.0 mm. Right kidney measures 11.7 cm in length without evidence of solid isamar al lesion. There is a stable cyst within the posterior aspect of the right mid kidney measuring 2.6 c m when compared to the prior dated 05/19/17. Main pancreatic duct measured 2.0 mm, which appears rela tively stable to the prior exam. IMPRESSION: Cholelithiasis without sonographic evidence of acute cholecystitis. POS: BH
[2018-03-18 08:45] LABS: Bilirubin Negative (Negative); Blood, Urine Negative (Negative); Clarity CLEAR (Clear); Glucose, Urine (Dipstick) Negative (Negative); Leukocyte Negative (Negative); Nitrite Negative (Negative); Protein, Urine (Dipstick) Negative (Neg-Trace); Specific Gravity, Urine 1.008 (1.002-1.036); Urobilinogen 0.2 mg/dL (0.2-1.0)
[2018-03-18 11:37] LABS: Lactic Acid 1.9 mmol/L (0.5-2.2)
[2018-03-18 12:05] VITALS: BMI 40.7
[2018-03-18] MEDS ORDERED: Ondansetron ODT 4 MG TAB SL PRN (12:11)
[2018-03-18] MEDS ORDERED: Ondansetron PF 4 MG/2 ML Vial IVP PRN (12:11)
[2018-03-18] MEDS ORDERED: Acetaminophen 325 MG TAB PO PRN ×2 (12:11→13:32)
[2018-03-18] MEDS ORDERED: Prevnar 13-Val Conj/PF 0.5 ML SYRINGE IM ONE (12:15)
[2018-03-18] MEDS ORDERED: Sodium Chloride 0.9% 1,000 ML IV SCH (12:15)
[2018-03-18] MEDS ORDERED: Senokot S 8.6-50 MG TAB PO PRN (13:32)
[2018-03-18] MEDS ORDERED: Diltiazem 125 MG in Sodium Chloride 0.9% 100 ML IVPB SCH ×2 (14:00→14:30)
[2018-03-18] MEDS: Guaifenesin DM 100-10/5 ML UDCUP PO PRN ×2 (14:35→22:27)
[2018-03-18] MEDS: Sodium Chloride 0.9% 1,000 ML IV SCH (14:36)
--- NOTE | 2018-03-18 15:06 | HP ---
REASON FOR ADMISSION: Atrial fibrillation with RVR, possible pneumonia. HISTORY OF PRESENTING ILLNESS: The patient gives history of having abdominal pain which is generalized, cough with expectoration of normal sputum, and fever from yesterday. This got worse to the point that she made it to the emergency room this morning. The patient has not had a flu shot for this year. No complaints of chest pain as such. She was found to be in atrial fibrillation with RVR. She has known history of chronic atrial fibrillation. The patient states she has never had any stress test or angiogram in the past. PAST MEDICAL AND SURGICAL HISTORY: History of chronic atrial fibrillation, hypertension, dyslipidemia, major depression, left total knee replacement, and x1. CURRENT MEDICATIONS: The patient is on, 1. Fluoxetine 10 mg p.o. q.a.m. 2. Cardizem CD 300 mg p.o. daily. 3. Atorvastatin 80 mg p.o. q.h.s. 4. Eliquis 5 mg p.o. twice daily. 5. Tizanidine 4 mg q.8 hourly p.r.n. 6. Motrin p.r.n. 7. Lisinopril 5 mg p.o. daily. ALLERGIES: NO KNOWN DRUG ALLERGIES. PERSONAL HISTORY: Does not abuse alcohol or drugs. No history of smoking. She ambulates by herself. She lives alone. FAMILY HISTORY: Mother at the age of 75. She has had history of coronary artery disease. Father in his 80s from unknown cause. CODE STATUS: Full. REVIEW OF SYSTEMS: CONSTITUTIONAL: Negative for weight loss or gain, ability to conduct usual activities. SKIN: Negative for rash, itching. EYES: Negative for double vision, pain. ENT/MOUTH: Negative for nose bleeding, neck stiffness, pain, tenderness. CARDIOVASCULAR: Negative for palpitations, dyspnea on exertion, orthopnea. RESPIRATORY: Negative for shortness of breath, wheezing, cough, hemoptysis, fever or night sweats. GASTROINTESTINAL: Negative for poor appetite, abdominal pain, heartburn, nausea , vomiting, constipation, or diarrhea. GENITOURINARY: Negative for urgency, frequency, dysuria, nocturia. MUSCULOSKELETAL: Negative for pain, swelling. NEUROLOGIC/PSYCHIATRIC: Negative for anxiety, depression. ALLERGY/IMMUNOLOGIC: Negative for skin rash, bleeding tendency. PHYSICAL EXAMINATION: GENERAL: The patient is a 67-year-old female, who is currently not in any acute distress. VITAL SIGNS: Blood pressure 180/110, pulse 120 per minute, respiratory rate 20 per minute, temperature 99.3 degrees Fahrenheit, saturating 95% on room air. NECK: Supple. Elevated JVD. HEENT: Eyes; extraocular muscles intact. Pupils reacting to light. Oral cavity, mucous membranes are dry. No exudates or congestion. CARDIOVASCULAR SYSTEM: S1 and S2 heard. Irregular rhythm. RESPIRATORY SYSTEM: Air entry 1+ bilateral. Scattered rhonchi plus bilateral. ABDOMEN: Soft. Mild tenderness in the suprapubic area. Otherwise, no rigidity or guarding. Bowel sounds are heard. EXTREMITIES: No peripheral edema or calf tenderness. VASCULAR SYSTEM: Peripheral pulses 1+ bilateral. No ischemic ulcerations or gangrene. CENTRAL NERVOUS SYSTEM: No gross focal deficits noted. The patient is alert, awake, and oriented well. PSYCHIATRIC SYSTEM: The patient's mood is euthymic. No hallucinations or delusions. LABORATORY DATA: White count of 6.9, H and H 13 and 40, platelet count 141 with 83% neutrophils. Potassium 3.3, serum bicarb 24, sodium 134, BUN 7, creatinine 0.7, serum glucose 137. Troponin I 1st set is 0.06, CK-MB 1.7. BNP is 702. Lipase is 5. UA shows no evidence of infection. Influenza A and B antigens are negative. Chest x-ray done shows cardiomegaly with pulmonary vascular congestion. There is perihilar airspace opacity seen bilaterally. Right upper quadrant ultrasound done showed cholelithiasis without evidence of acute cholecystitis. CBD measures 2 mm. Main pancreatic duct is 2 mm. EKG done shows atrial fibrillation with RVR at 125 beats per minute. CLINICAL IMPRESSION AND PLAN: The patient will be admitted to telemetry for atrial fibrillation with rapid ventricular response with known history of chronic atrial fibrillation, pneumonia likely with fever, and left shift. Accurate home med list will be obtained. The one on the [facility] states patient is on amiodarone along with Eliquis. We will continue on the same dose for now. We will add lisinopril and a small dose of Coreg. She will be on Cardizem drip 5 mg an hour, which has been started in the ER and will continue the same. Echo with 2D Doppler will be obtained for LV function. We will also obtain Cardiology consultation. This patient reveals that she has never had any prior cardiac workup, although she has seen a senior controller at [facility] per the patient. A prior echo done here in January of 2017 showed EF of 45%. Left atrium was moderately dilated, then moderate mitral regurgitation was present. Dr. Somers is on-call for Cardiology and will be consulted. The patient has seen Dr. Dao once in 2017 or 2018 per [facility]. Right upper quadrant ultrasound done did not reveal any acute cholecystitis, although she has gallbladder sludge. The patient likely will need diuresis and will do the same in the morning. She is currently on normal saline at 50 mL per hour to buffer for any hypotension with Cardizem drip. Job ID: [id number] [facility]
[2018-03-18] MEDS ORDERED: Digoxin 0.5 MG/2 ML AMP SLOW IVP SCH (16:00)
[2018-03-18] MEDS ORDERED: Carvedilol 6.25 MG TAB PO SCH (17:00)
[2018-03-18] MEDS: Digoxin 0.5 MG/2 ML AMP SLOW IVP SCH ×2 (17:12→22:28)
--- NOTE | 2018-03-18 17:54 | CON ---
DATE OF CONSULTATION: 03/18/2018 INDICATION FOR CONSULTATION: A 67-year-old female with atrial fibrillation with rapid ventricular response with possible pneumonia. HISTORY OF PRESENT ILLNESS: This is a very unfortunate 67-year-old female, who has been seen by Dr. Stuart and Dr. Dao in the past, also for most likely pneumonia with atrial fibrillation with rapid ventricular response. She tells me mainly she is seen by torpedo man in [facility]. She has not followed up in our office as far as I can tell, she has been only seen in the hospital. At this time, I am uncertain whether or not she has chronic atrial fibrillation, but she is on Eliquis from home and I most likely would think that she has chronic atrial fibrillation, but now has a rapid ventricular response with atrial fibrillation, most likely due to the underlying again pneumonia. She denies any chest pain. She mainly complains of coughing and shortness of breath. She is not feeling well associated with probably her pneumonia. PAST MEDICAL HISTORY: Significant for atrial fibrillation, which appears to be chronic, hypertension, depression, and dyslipidemia. PAST SURGICAL HISTORY: She has had a left total knee replacement. She has had a x1. MEDICATIONS: Prior to admission include: 1. Fluoxetine. 2. Cardizem. 3. Atorvastatin. 4. Eliquis. 5. Tizanidine. 6. Motrin. 7. Lisinopril. At this time, she has been placed on diltiazem IV as well as amiodarone. She has been given 200 mg daily, I do not know whether she had a loading dose or not. She is on Eliquis 5 mg b.i.d., Coreg 6.25 mg b.i.d., Pepcid, Zestril 5 mg a day, Tylenol, guaifenesin, and she was given vaccinations for pneumonia and flu. ALLERGIES: NONE. SOCIAL HISTORY: She has no history of alcohol or tobacco abuse. She lives alone. FAMILY HISTORY: Noncontributory for any early heart disease except for the mother, who at age 75. His father in the 80s. REVIEW OF SYSTEMS: A 12-point review of systems, she complains of abdominal pain, shortness of breath, and cough. Otherwise, 12-point review of system was unremarkable. PHYSICAL EXAMINATION: GENERAL: Reveals an elderly obese female. VITAL SIGNS: Blood pressure is 140/53, heart rate is in the 1 teens to 120s, and respiratory rate 22. She is afebrile. HEENT: Shows the head to be normocephalic and atraumatic. Carotid pulses are present. I did not hear any significant bruits. CHEST: Has diffuse expiratory wheezing throughout with some coarse rhonchi noted on the left side. CARDIOVASCULAR: Reveals an irregularly irregular rhythm. Heart sounds are somewhat difficult to auscultate. ABDOMEN: Shows obesity, some tenderness. I cannot palpate any masses. EXTREMITIES: Showed 1 to 2+ lower extremity edema. Pedal pulses are difficult to palpate. NEUROLOGIC: The patient appears to be intact, but does appear to be ill. She does not feel well. LABORATORY DATA: Shows a hemoglobin of 13, WBC of 6.9. Potassium is 3.3, sodium is 134, blood sugar 137. Her troponin I was 0.06 and with BNP of 702. IMAGING STUDIES: Her EKG shows atrial fibrillation, but no acute changes. IMPRESSION: 1. Probable pneumonia, which exacerbated a tachycardia with the atrial fibrillation. We will continue the IV antibiotics. 2. Most likely chronic atrial fibrillation. She has most likely been seen by Cardiology at [facility], at least what she tells me. We will need just to control the heart rate at this time. We will continue the Eliquis for oral anticoagulation. 3. Obesity. She should have a dietary consult for weight loss. At this time, we will be more than happy to continue to follow her with you. Her echocardiogram according to the records that I have reviewed showed that she did have ejection fraction in January 2017, about 45%. We will be more than happy to continue to follow the patient with you, most likely Dr. Dao or Dr. Stuart will resume her care tomorrow. If necessary, we can also add digoxin for better rate control, but most likely the best solution is to treat the underlying etiology of her atrial fibrillation. Job ID: [id number]
[2018-03-18] MEDS: Famotidine 20 MG TAB PO SCH (22:27)
[2018-03-18] MEDS: Apixaban 5 MG TAB PO SCH (22:29)
[2018-03-18] MEDS ORDERED: Morphine 2 MG/ML SYRINGE SLOW IVP SCH (23:30)
[2018-03-19 00:10] LABS: ALT (SGPT) 47 U/L (8-55); AST (SGOT) 41 U/L (5-34); Albumin 4.3 g/dL (3.4-4.8); Alkaline Phosphatase 80 U/L (40-150); Bilirubin, Direct 0.3 mg/dL (0.1-0.3); Bilirubin, Total 0.7 mg/dL (0.2-1.2); Lipase 10 U/L (8-78); Protein, Total 7.3 g/dL (6.0-8.3)
[2018-03-19 00:25] LABS: CKMB 3.3 ng/mL (0-6.6)
[2018-03-19 05:16] LABS: Anion Gap 14 mmol/L (10-20); BUN (Urea Nitrogen) 9 mg/dL (9.8-20.1); Calc. Creatinine Clearance 141 mL/min (70-130); Calcium 9.3 mg/dL (7.8-10.44); Carbon Dioxide 26 mmol/L (23-31); Chloride 101 mmol/L (98-107); Estimated GFR-MDRD Greater than 90; Glucose 110 mg/dL (80-115); Potassium 3.6 mmol/L (3.5-5.1); Sodium 137 mmol/L (136-145)
[2018-03-19 05:26] LABS: #Lymphocytes 0.5 thou/uL (1.20-3.40); #Monocytes 0.5 thou/uL (0.11-0.59); #Neutrophils 4.5 thou/uL (1.40-6.50); %Basophils 0.1 % (0.0-1.0); %Eosinophils 0.1 % (0.0-10.0); %Lymphocytes 8.2 % (21.0-51.0); %Monocytes 9.2 % (0.0-10.0); %Neutrophils 82.4 % (42.0-75.0); Mean Corpuscular HGB CONC 31.5 g/dL (32.0-36.0); Mean Corpuscular Hemoglobin 29.1 pg (27.0-31.0); Mean Corpuscular Volume 92.4 fL (78.0-98.0); Mean Platelet Volume 9.5 fL (7.4-10.4); Platelet Count 112 thou/uL (130-400); Platelet Morphology Comment Appears Decreased; RBC Distribution Width 12.2 % (11.5-14.5); Red Blood Cell (RBC) Count 4.46 mill/uL (4.20-5.40); White Blood Cell (WBC) Count 5.5 thou/uL (4.8-10.8)
[2018-03-19] MEDS: Digoxin 0.5 MG/2 ML AMP SLOW IVP SCH ×2 (05:26→11:12)
[2018-03-19] MEDS: HYDROcodone/Acetaminophen 5/325 mg Tablet PO PRN ×3 (06:11→20:19)
[2018-03-19] MEDS: Apixaban 5 MG TAB PO SCH ×2 (09:33→20:19)
[2018-03-19] MEDS: Famotidine 20 MG TAB PO SCH ×2 (09:33→20:21)
[2018-03-19] MEDS: Carvedilol 6.25 MG TAB PO SCH ×3 (09:34→20:21)
[2018-03-19] MEDS: Amiodarone 200 MG TAB PO SCH (09:34)
[2018-03-19] MEDS: Lisinopril 5 MG TAB PO SCH (09:35)
[2018-03-19] MEDS ORDERED: Furosemide 40 MG/4 ML VIAL SLOW IVP SCH (09:45)
--- NOTE | 2018-03-19 10:13 | PDOC.PN ---
- Subjective Encounter Start Date: 03/19/18 Encounter Start Time: 09:00 Subjective: mild sob, no chest pain or palp - Objective Resuscitation Status - Order Detail: 03/18/18 13:25 Resuscitation Status Routine Resuscitation Status: FULL: Full Resuscitation MAR Reviewed: Yes Vital Signs & Weight: Vital Signs (12 hours) Temp Pulse Resp BP BP Pulse Ox 03/19/18 09:35 168/100 H 03/19/18 09:34 168/100 H 03/19/18 05:26 112 H 03/19/18 05:00 98.3 F 102 H 25 H 155/100 H 95 03/19/18 02:11 112 H 18 91 L 03/19/18 01:00 98.6 F 106 H 26 H 174/110 H 96 03/18/18 22:28 108 H Weight Weight 244 lb 11.2 oz Result Diagrams: 03/19/18 04:20 03/19/18 04:20 Phys Exam - Physical Examination HEENT: PERRLA, moist MMs Neck: no JVD, supple Respiratory: no wheezing rales+ Cardiovascular: no significant murmur, no rub, irregular Gastrointestinal: soft, non-tender, positive bowel sounds Musculoskeletal: no edema, pulses present Neurological: non-focal, moves all 4 limbs Psychiatric: A&O x 3 Dx/Plan (1) Chronic atrial fibrillation with RVR Code(s): I48.2 - CHRONIC ATRIAL FIBRILLATION Status: Chronic (2) Demand ischemia of myocardium Code(s): I24.8 - OTHER FORMS OF ACUTE ISCHEMIC HEART DISEASE Status: Acute (3) Dyslipidemia Code(s): E78.5 - HYPERLIPIDEMIA, UNSPECIFIED Status: Chronic (4) Hypertension Code(s): I10 - ESSENTIAL (PRIMARY) HYPERTENSION Status: Chronic Qualifiers: Hypertension type: essential hypertension Qualified Code(s): I10 - Essential (primary) hypertension (5) Morbid obesity with BMI of 40.0-44.9, adult Code(s): E66.01 - MORBID (SEVERE) OBESITY DUE TO EXCESS CALORIES; Z68.41 - BODY MASS INDEX (BMI) 40.0-44.9, ADULT Status: Chronic - Plan is on coreg tid, eliquis, asp, digoxin -: off cardizem drip -: will give one dose lasix -: ef is low likely from afib/?baseline -: will need outpt stress test/cath * . Review of Systems - Medications/Allergies Allergies/Adverse Reactions: Allergies Allergy/AdvReac Type Severity Reaction Status Date / Time No Known Allergies Allergy Verified 02/19/17 03:46 Medications: Current Medications Acetaminophen (Tylenol) 650 mg PO Q4H PRN PRN Reason: Headache/Fever/Mild Pain (1-3) Last Admin: 03/18/18 16:15 Dose: 650 mg Hydrocodone Bitart/Acetaminophen ([place] 5/325) 1 tab PO Q4H PRN PRN Reason: Moderate Pain (4-6) Last Admin: 03/19/18 09:38 Dose: 1 tab Albuterol/Ipratropium (Duoneb) 3 ml NEB Q4H PRN PRN Reason: SOB &/or Wheezing Last Admin: 03/19/18 02:11 Dose: 3 ml Amiodarone HCl (Cordarone) 200 mg PO DAILY [facility] Last Admin: 03/19/18 09:34 Dose: 200 mg Apixaban (Eliquis) 5 mg PO BID [facility] Last Admin: 03/19/18 09:33 Dose: 5 mg Aspirin (Aspirin Chewable) 81 mg PO DAILY [facility] Carvedilol (Coreg) 6.25 mg PO TID [facility] Last Admin: 03/19/18 09:34 Dose: 6.25 mg Digoxin (Lanoxin) 0.25 mg SLOW IVP Q6H [facility] Stop: 03/19/18 11:01 Last Admin: 03/19/18 05:26 Dose: 0.25 mg Famotidine (Pepcid) 20 mg PO BID [facility] Last Admin: 03/19/18 09:33 Dose: 20 mg Furosemide (Lasix) 40 mg SLOW IVP ONE [facility] Stop: 03/19/18 11:00 Guaifenesin/Dextromethorphan (Robitussin Dm) 15 ml PO Q4H PRN PRN Reason: Cough Last Admin: 03/18/18 22:27 Dose: 15 ml Diltiazem HCl 125 mg/ Sodium (Chloride) 125 mls @ 5 mls/hr IVPB INF [facility]; Protocol Last Admin: 03/19/18 09:40 Dose: 125 mls Lisinopril (Zestril) 5 mg PO DAILY [facility] Last Admin: 03/19/18 09:35 Dose: 5 mg Senna/Docusate Sodium (Senokot S) 2 tab PO BID PRN PRN Reason: Constipation Sodium Chloride (Flush - Normal Saline) 10 ml IVF Q12HR [facility] Last Admin: 03/19/18 09:35 Dose: Not Given Sodium Chloride (Flush - Normal Saline) 10 ml IVF PRN PRN PRN Reason: Saline Flush
[2018-03-19] MEDS: Sodium Chloride 0.9% 1,000 ML IV SCH (11:08)
[2018-03-19] MEDS ORDERED: Diltiazem 125 MG in Sodium Chloride 0.9% 100 ML IVPB SCH (16:56)
[2018-03-19] MEDS ORDERED: Diltiazem HCl SR 60 mg Capsule PO SCH (17:00)
--- NOTE | 2018-03-19 17:23 | PRG ---
DATE OF SERVICE: SUBJECTIVE: Ms. Worley currently is doing well. No current complaints. She continues to wheeze. She is currently on IV Cardizem at 5 mg/hour. She is not on any negative chronotropic support outside of IV calcium-channel blockade. OBJECTIVE: VITAL SIGNS: Blood pressure 125/78, pulse 89, and temperature 97.8. LUNGS: Wheezing noted bilaterally. HEART: Irregular regular. ABDOMEN: Soft, nontender, nondistended. EXTREMITIES: No edema. PERTINENT LABORATORY DATA: Hemoglobin 13, hematocrit 41.2, and platelet count of 112. IMPRESSION: 1. Atrial fibrillation. 2. ? Pneumonia. RECOMMENDATIONS: 1. We will add low-dose Coreg for rate control and blood pressure control. 2. She is currently on anticoagulation therapy. We will continue. 3. She was given admission diagnosis of pneumonia, but not on antibiotic therapy. We will defer to primary team. 4. She does state she had cardiomyopathy diagnosed by Dr. Holden at [facility], but overall LVEF is unknown. May need previous echo. She may also need a LifeVest going home. Job ID: [id number]
[2018-03-20] MEDS ORDERED: Aspirin Chewable 81 MG TAB PO SCH (09:00)
[2018-03-20] MEDS: Famotidine 20 MG TAB PO SCH ×2 (09:09→21:25)
[2018-03-20] MEDS: Apixaban 5 MG TAB PO SCH ×2 (09:09→21:24)
[2018-03-20] MEDS: Carvedilol 6.25 MG TAB PO SCH ×3 (09:10→21:24)
[2018-03-20] MEDS: Amiodarone 200 MG TAB PO SCH (09:13)
[2018-03-20] MEDS: Lisinopril 5 MG TAB PO SCH (09:14)
[2018-03-20] MEDS: HYDROcodone/Acetaminophen 5/325 mg Tablet PO PRN ×2 (09:15→18:22)
--- NOTE | 2018-03-20 12:44 | PDOC.PN ---
- Subjective Encounter Start Date: 03/20/18 Encounter Start Time: 12:42 Subjective: feels well but still has cough -: no CP/SOB/palpitations - Objective Resuscitation Status - Order Detail: 03/18/18 13:25 Resuscitation Status Routine Resuscitation Status: FULL: Full Resuscitation MAR Reviewed: Yes Vital Signs & Weight: Vital Signs (12 hours) Temp Pulse Resp BP BP BP Pulse Ox 03/20/18 11:47 99.3 F 89 18 155/85 H 91 L 03/20/18 09:14 83 03/20/18 09:10 139/100 H 03/20/18 08:00 91 L 03/20/18 07:56 98.9 F 81 18 139/100 H 91 L 03/20/18 03:10 99.1 F 73 23 H 153/83 H 93 L Weight Weight 241 lb I&O: 03/19/18 03/20/18 03/21/18 06:59 06:59 06:59 Intake Total 1090 Output Total 1450 Balance -360 Result Diagrams: 03/19/18 04:20 03/19/18 04:20 Additional Labs: Microbiology 03/18/18 07:39 Nasal swab Influenza Types A,B Direct EIA - Final 03/18/18 07:47 Venous blood - Right Hand Blood Culture - Preliminary Specimen has been received and culture in progress. No Growth to date. 03/18/18 07:47 Venous blood - Right Hand Blood Culture - Preliminary NO GROWTH AT 48 HOURS 03/18/18 07:43 Venous blood - Right Arm Blood Culture - Preliminary Specimen has been received and culture in progress. No Growth to date. 03/18/18 07:43 Venous blood - Right Arm Blood Culture - Preliminary NO GROWTH AT 48 HOURS Laboratory Tests 03/18/18 03/18/18 03/18/18 06:12 06:15 23:26 Troponin I 0.060 H 0.104 H B-Natriuretic Peptide 702.8 H Phys Exam - Physical Examination Constitutional: NAD HEENT: PERRLA, moist MMs, sclera anicteric, oral pharynx no lesions Neck: no nodes, no JVD, supple, full ROM Respiratory: no wheezing, no rales, no rhonchi, clear to auscultation bilateral Cardiovascular: RRR, no significant murmur Gastrointestinal: soft, non-tender, no distention, positive bowel sounds Musculoskeletal: no edema, pulses present Neurological: non-focal, normal sensation, moves all 4 limbs Psychiatric: normal affect, A&O x 3 Skin: no rash Dx/Plan (1) Chronic atrial fibrillation with RVR Code(s): I48.2 - CHRONIC ATRIAL FIBRILLATION Status: Chronic (2) PNA (pneumonia) Code(s): J18.9 - PNEUMONIA, UNSPECIFIED ORGANISM Status: Acute Qualifiers: Laterality: bilateral Lung location: upper lobe of lung (3) Demand ischemia of myocardium Code(s): I24.8 - OTHER FORMS OF ACUTE ISCHEMIC HEART DISEASE Status: Acute (4) Cholelithiases Code(s): K80.20 - CALCULUS OF GALLBLADDER W/O CHOLECYSTITIS W/O OBSTRUCTION Status: Chronic Qualifiers: Cholelithiasis location: gallbladder Cholecystitis presence: without cholecystitis Biliary obstruction: without biliary obstruction Qualified Code(s): K80.20 - Calculus of gallbladder without cholecystitis without obstruction Comment: No cholecystitis on US.OP follow up recommended (5) Dyslipidemia Code(s): E78.5 - HYPERLIPIDEMIA, UNSPECIFIED Status: Chronic (6) Hypertension Code(s): I10 - ESSENTIAL (PRIMARY) HYPERTENSION Status: Chronic Qualifiers: Hypertension type: essential hypertension Qualified Code(s): I10 - Essential (primary) hypertension (7) Morbid obesity with BMI of 40.0-44.9, adult Code(s): E66.01 - MORBID (SEVERE) OBESITY DUE TO EXCESS CALORIES; Z68.41 - BODY MASS INDEX (BMI) 40.0-44.9, ADULT Status: Chronic - Plan out of bed/ambulate, DVT proph w/SCDs add PO levaquin.clinical suspicion low for PNA. -: HR controlled and NSR w BB,CCB and amiodarone. -: monitor for Bradycardia -: Low EF. may need life Vest-defer to cardiology -: may need Cath and further w/u for cause of cardiomyopathy. * . Review of Systems - Review of Systems Constitutional: negative: fever, chills, sweats, weakness, malaise, other Eyes: negative: Pain, Vision Change, Conjunctivae Inflammation, Eyelid Inflammation, Redness, Other ENT: negative: Ear Pain, Ear Discharge, Nose Pain, Nose Discharge, Nose Congestion, Mouth Pain, Mouth Swelling, Throat Pain, Throat Swelling, Other Respiratory: negative: Cough, Dry, Shortness of Breath, Hemoptysis, SOB with Excertion, Pleuritic Pain, Sputum, Wheezing Cardiovascular: negative: chest pain, palpitations, orthopnea, paroxysmal nocturnal dyspnea, edema, light headedness, other Gastrointestinal: negative: Nausea, Vomiting, Abdominal Pain, Diarrhea, Constipation, Melena, Hematochezia, Other Genitourinary: negative: Dysuria, Frequency, Incontinence, Hematuria, Retention , Other Musculoskeletal: negative: Neck Pain, Shoulder Pain, Arm Pain, Back Pain, Hand Pain, Leg Pain, Foot Pain, Other Neurological: negative: Weakness, Numbness, Incoordination, Change in Speech, Confusion, Seizures, Other - Medications/Allergies Allergies/Adverse Reactions: Allergies Allergy/AdvReac Type Severity Reaction Status Date / Time No Known Allergies Allergy Verified 02/19/17 03:46 Medications: Current Medications Acetaminophen (Tylenol) 650 mg PO Q4H PRN PRN Reason: Headache/Fever/Mild Pain (1-3) Last Admin: 03/18/18 16:15 Dose: 650 mg Hydrocodone Bitart/Acetaminophen ([place] 5/325) 1 tab PO Q4H PRN PRN Reason: Moderate Pain (4-6) Last Admin: 03/20/18 09:15 Dose: 1 tab Albuterol/Ipratropium (Duoneb) 3 ml NEB Q4H PRN PRN Reason: SOB &/or Wheezing Last Admin: 03/19/18 18:52 Dose: 3 ml Amiodarone HCl (Cordarone) 200 mg PO DAILY [facility] Last Admin: 03/20/18 09:13 Dose: 200 mg Apixaban (Eliquis) 5 mg PO BID [facility] Last Admin: 03/20/18 09:09 Dose: 5 mg Aspirin (Aspirin Chewable) 81 mg PO DAILY [facility] Last Admin: 03/20/18 09:15 Dose: 81 mg Carvedilol (Coreg) 3.125 mg PO TID [facility] Last Admin: 03/20/18 09:10 Dose: 3.125 mg Diltiazem HCl (Cardizem Cd) 240 mg PO 1200 [facility] Famotidine (Pepcid) 20 mg PO BID [facility] Last Admin: 03/20/18 09:09 Dose: 20 mg Guaifenesin/Dextromethorphan (Robitussin Dm) 15 ml PO Q4H PRN PRN Reason: Cough Last Admin: 03/18/18 22:27 Dose: 15 ml Levofloxacin (Levaquin) 750 mg PO 0600 [facility] Stop: 03/25/18 06:01 Lisinopril (Zestril) 5 mg PO DAILY [facility] Last Admin: 03/20/18 09:14 Dose: 5 mg Senna/Docusate Sodium (Senokot S) 2 tab PO BID PRN PRN Reason: Constipation Sodium Chloride (Flush - Normal Saline) 10 ml IVF Q12HR [facility] Last Admin: 03/20/18 09:08 Dose: 10 ml Sodium Chloride (Flush - Normal Saline) 10 ml IVF PRN PRN PRN Reason: Saline Flush
--- NOTE | 2018-03-20 16:06 | PRG ---
DATE OF SERVICE: 03/20/2018 SUBJECTIVE: Ms. Worley is doing well. She is off IV Cardizem. I did add p.o. Cardizem to her regime. She is currently on a beta joanna therapy at low dose. She had wheezing yesterday, which is not apparent today. Overall, LVEF was estimated at 30% to 35% on recent echo. OBJECTIVE: VITAL SIGNS: Blood pressure 155/85, pulse 89, temperature 99.3. LUNGS: Clear to auscultation with mild wheezing. HEART: Irregularly irregular. ABDOMEN: Soft, nontender, and nondistended. EXTREMITIES: No edema. IMPRESSION: 1. Cardiomyopathy. 2. Chronic atrial fibrillation. 3. Asthma. RECOMMENDATIONS: Ms. Worley appears improved. She is currently on a low-dose beta-joanna therapy in addition to aspirin and lisinopril. I discussed risks and benefits of Zoll LifeVest. She is agreeable. I have placed the order. Otherwise, is stable. Would be okay for discharge from my standpoint, once the Zoll is placed. The patient is to follow up with her primary service delivery supervisor at [facility]. Job ID: [id number]
[2018-03-21] MEDS: Guaifenesin DM 100-10/5 ML UDCUP PO PRN (02:44)
[2018-03-21] MEDS: HYDROcodone/Acetaminophen 5/325 mg Tablet PO PRN ×2 (02:44→18:31)
[2018-03-21] MEDS ORDERED: Carvedilol 3.125 MG TAB PO SCH (09:00)
[2018-03-21] MEDS: Apixaban 5 MG TAB PO SCH ×2 (09:06→21:34)
[2018-03-21] MEDS: Lisinopril 5 MG TAB PO SCH (09:06)
[2018-03-21] MEDS: Famotidine 20 MG TAB PO SCH ×2 (09:06→21:34)
[2018-03-21] MEDS: Amiodarone 200 MG TAB PO SCH (09:07)
--- NOTE | 2018-03-21 11:18 | PDOC.CTH ---
Cardiology Progress Note - Subjective Complaint of coughing up phlegm. No CP. Breathing stable. - Objective Vital Signs Temp Pulse Resp BP BP BP Pulse Ox 03/21/18 09:06 75 147/84 H 03/21/18 07:20 98 F 75 20 147/84 H 92 L 03/21/18 04:00 99.5 F 67 18 129/58 L 92 L Weight 241 lb 03/20/18 03/21/18 03/22/18 06:59 06:59 06:59 Intake Total 1090 1220 Output Total 1450 Balance -360 1220 - Physical Examination General/Neuro: alert & oriented x3 Neck: no JVD present Lungs: CTA Heart: other: (IRR) Extremities: other: (Trace bilateral LUCI) - Telemetry Telemetry Rhythm: AF - Labs Result Diagrams: 03/19/18 04:20 03/19/18 04:20 Troponin/CKMB CK-MB (CK-2) 3.3 ng/mL (0-6.6) 03/18/18 23:26 Troponin I 0.104 ng/mL (< 0.028) H 03/18/18 23:26 - Assessment/Plan 1. 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 AF 3. HTN 4. Probable PNA Awaiting LifeVest placement. In the past EF has been 40-45% and now lower. Increase Coreg. On lisinopril. Stop cardizem with history of COATER ASSOCIATE. Unknown if AF paroxysmal vs chronic. Will continue amio for now and defer to primary enterprise infrastructure architect at [employer] to determine if needs to be stopped vs outpatient cardioversion. Rate stable.
--- NOTE | 2018-03-21 12:13 | PDOC.PN ---
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 appetite good.no F/C.no blood in stools. NL BM this am - Objective Resuscitation Status - Order Detail: 03/18/18 13:25 Resuscitation Status Routine Resuscitation Status: FULL: Full Resuscitation MAR Reviewed: Yes Vital Signs & Weight: Vital Signs (12 hours) Temp Pulse Resp BP BP BP Pulse Ox 03/21/18 09:06 75 147/84 H 03/21/18 07:20 98 F 75 20 147/84 H 92 L 03/21/18 04:00 99.5 F 67 18 129/58 L 92 L Weight Weight 241 lb I&O: 03/20/18 03/21/18 03/22/18 06:59 06:59 06:59 Intake Total 1090 1220 Output Total 1450 Balance -360 1220 Result Diagrams: 03/19/18 04:20 03/19/18 04:20 Additional Labs: Laboratory Tests 03/18/18 03/18/18 06:12 23:26 Lipase 5 L 10 Phys Exam - Physical Examination uncomfortable HEENT: PERRLA, moist MMs, sclera anicteric, oral pharynx no lesions Neck: no nodes, no JVD, supple, full ROM Respiratory: no wheezing, no rales, no rhonchi, clear to auscultation bilateral Cardiovascular: RRR, no significant murmur Gastrointestinal: soft, non-tender, no distention, positive bowel sounds diffuse Tenderness Musculoskeletal: no edema, pulses present Neurological: non-focal, normal sensation, moves all 4 limbs Psychiatric: normal affect, A&O x 3 Skin: no rash Dx/Plan (1) Chronic atrial fibrillation with RVR Code(s): I48.2 - CHRONIC ATRIAL FIBRILLATION Status: Chronic (2) PNA (pneumonia) Code(s): J18.9 - PNEUMONIA, UNSPECIFIED ORGANISM Status: Acute Qualifiers: Laterality: bilateral Lung location: upper lobe of lung (3) Abdominal pain Code(s): R10.9 - UNSPECIFIED ABDOMINAL PAIN Status: Acute (4) Demand ischemia of myocardium Code(s): I24.8 - OTHER FORMS OF ACUTE ISCHEMIC HEART DISEASE Status: Acute (5) Cholelithiases Code(s): K80.20 - CALCULUS OF GALLBLADDER W/O CHOLECYSTITIS W/O OBSTRUCTION Status: Chronic Qualifiers: Cholelithiasis location: gallbladder Cholecystitis presence: without cholecystitis Biliary obstruction: without biliary obstruction Qualified Code(s): K80.20 - Calculus of gallbladder without cholecystitis without obstruction Comment: No cholecystitis on US.OP follow up recommended (6) Dyslipidemia Code(s): E78.5 - HYPERLIPIDEMIA, UNSPECIFIED Status: Chronic (7) Hypertension Code(s): I10 - ESSENTIAL (PRIMARY) HYPERTENSION Status: Chronic Qualifiers: Hypertension type: essential hypertension Qualified Code(s): I10 - Essential (primary) hypertension (8) Morbid obesity with BMI of 40.0-44.9, adult Code(s): E66.01 - MORBID (SEVERE) OBESITY DUE TO EXCESS CALORIES; Z68.41 - BODY MASS INDEX (BMI) 40.0-44.9, ADULT Status: Chronic (9) Cardiomyopathy Code(s): I42.9 - CARDIOMYOPATHY, UNSPECIFIED Status: Chronic Comment: on BB, BIANCA-I,ASA,.no clear etiology.OP Stress test and/or cardiac Cath per Primary digitizer operator needed - Plan DVT proph w/SCDs abdominal exam shows no acute abdomen.lipase NL -: no particular RUQ tenderness given cholelithiasis but more diffuse tenderne -: will check CT A/P. normal BMs reported w/o N/V/D.? functional Vs biliary -: Lifevest today.HR controlled. cont anticoagulation.monitr platelets -: Empiric ABx for possible PNA. * . Review of Systems - Review of Systems Constitutional: malaise. negative: fever, chills, sweats, weakness, other ENT: negative: Ear Pain, Ear Discharge, Nose Pain, Nose Discharge, Nose Congestion, Mouth Pain, Mouth Swelling, Throat Pain, Throat Swelling, Other Respiratory: negative: Cough, Dry, Shortness of Breath, Hemoptysis, SOB with Excertion, Pleuritic Pain, Sputum, Wheezing Cardiovascular: negative: chest pain, palpitations, orthopnea, paroxysmal nocturnal dyspnea, edema, light headedness, other Gastrointestinal: Abdominal Pain. negative: Nausea, Vomiting, Diarrhea, Constipation, Melena, Hematochezia, Other Genitourinary: negative: Dysuria, Frequency, Incontinence, Hematuria, Retention , Other Musculoskeletal: negative: Neck Pain, Shoulder Pain, Arm Pain, Back Pain, Hand Pain, Leg Pain, Foot Pain, Other Neurological: negative: Weakness, Numbness, Incoordination, Change in Speech, Confusion, Seizures, Other - Medications/Allergies Allergies/Adverse Reactions: Allergies Allergy/AdvReac Type Severity Reaction Status Date / Time No Known Allergies Allergy Verified 02/19/17 03:46 Medications: Current Medications Acetaminophen (Tylenol) 650 mg PO Q4H PRN PRN Reason: Headache/Fever/Mild Pain (1-3) Last Admin: 03/18/18 16:15 Dose: 650 mg Hydrocodone Bitart/Acetaminophen ([place] 5/325) 1 tab PO Q4H PRN PRN Reason: Moderate Pain (4-6) Last Admin: 03/21/18 02:44 Dose: 1 tab Albuterol/Ipratropium (Duoneb) 3 ml NEB Q4H PRN PRN Reason: SOB &/or Wheezing Last Admin: 03/19/18 18:52 Dose: 3 ml Amiodarone HCl (Cordarone) 200 mg PO DAILY PENDING SALE TO [facility] Last Admin: 03/21/18 09:07 Dose: 200 mg Apixaban (Eliquis) 5 mg PO BID PENDING SALE TO [facility] Last Admin: 03/21/18 09:06 Dose: 5 mg [facility] Famotidine (Pepcid) 20 mg PO BID PENDING SALE TO [facility] Last Admin: 03/21/18 09:06 Dose: 20 mg Guaifenesin/Dextromethorphan (Robitussin Dm) 15 ml PO Q4H PRN PRN Reason: Cough Last Admin: 03/21/18 02:44 Dose: 15 ml Levofloxacin (Levaquin) 750 mg PO 0600 PENDING SALE TO [facility] Stop: 03/25/18 06:01 Last Admin: 03/21/18 05:46 Dose: 750 mg Lisinopril (Zestril) 5 mg PO DAILY PENDING SALE TO [facility] Last Admin: 03/21/18 09:06 Dose: 5 mg Senna/Docusate Sodium (Senokot S) 2 tab PO BID PRN PRN Reason: Constipation Last Admin: 03/20/18 18:22 Dose: 2 tab Sodium Chloride (Flush - Normal Saline) 10 ml IVF Q12HR PENDING SALE TO [facility] Last Admin: 03/21/18 09:06 Dose: 10 ml Sodium Chloride (Flush - Normal Saline) 10 ml IVF PRN PRN PRN Reason: Saline Flush
--- NOTE | 2018-03-21 15:42 | CT ---
CT OF ABDOMEN AND PELVIS PERFORMED WITHOUT CONTRAST ENHANCEMENT: 03/21/18 COMPARISON: A 10/25/17 study. HISTORY: Abdominal pain, generalized. There has been development of some bibasilar parenchymal lung changes suggesting some developing infi ltrate. The liver, spleen, and pancreas regions appear unremarkable. The small stones noted on the previous e xamination are more difficult to appreciate on this exam. Right and left adrenal glands are normal. Right and left kidneys are normal in size. Exophytic hypode nsity involving the left kidney is statistically most likely a cyst. No renal or ureteral calculi ar e identified. No significant periaortic or mesenteric lymphadenopathy. CT OF PELVIS PERFORMED WITHOUT CONTRAST ENHANCEMENT: The appendix is normal in size, retrocecal in location. Calcified uterine fibroids are noted. No pelv ic lymphadenopathy or mass. IMPRESSION: 1. Gallstones are more difficult to visualize on this examination. 2. Development of some bibasilar infiltrative lung change. 3. Calcified uterine fibroids. POS: DEBORAH
[2018-03-21] MEDS: Carvedilol 6.25 MG TAB PO SCH (15:43)
[2018-03-21] MEDS ORDERED: cloNIDine 0.1 MG TAB PO PRN (18:18)
[2018-03-21] MEDS ORDERED: hydrALAZINE 20 MG/ML VIAL SLOW IVP PRN (18:18)
[2018-03-22] MEDS: Guaifenesin DM 100-10/5 ML UDCUP PO PRN (03:14)
[2018-03-22] MEDS ORDERED: Lisinopril 5 MG TAB PO SCH (09:00)
[2018-03-22] MEDS: Famotidine 20 MG TAB PO SCH (09:05)
[2018-03-22] MEDS: Amiodarone 200 MG TAB PO SCH (09:05)
[2018-03-22] MEDS: Carvedilol 6.25 MG TAB PO SCH ×2 (09:05→16:51)
[2018-03-22] MEDS: Apixaban 5 MG TAB PO SCH (09:05)
[2018-03-22 11:57] VITALS: TEMP 97.7
[2018-03-22 14:24] LABS: Anion Gap 14 mmol/L (10-20); BUN (Urea Nitrogen) 9 mg/dL (9.8-20.1); Calc. Creatinine Clearance 119 mL/min (70-130); Calcium 9.1 mg/dL (7.8-10.44); Carbon Dioxide 25 mmol/L (23-31); Chloride 104 mmol/L (98-107); Estimated GFR-MDRD Greater than 90; Glucose 81 mg/dL (80-115); Potassium 3.5 mmol/L (3.5-5.1); Sodium 139 mmol/L (136-145)
[2018-03-22 16:51] VITALS: BP 161/113
--- NOTE | 2018-03-22 18:17 | DIS ---
DATE OF ADMISSION: 03/18/2018 DATE OF DISCHARGE: 03/22/2018 PRIMARY CARE PHYSICIAN: Dr. Da Haywood. PRIMARY RIG SUPERINTENDENT: [facility]. DISCHARGE DIAGNOSES: 1. New diagnosis of cardiomyopathy of unknown etiology, status post LifeVest placement. 2. Chronic atrial fibrillation with rapid ventricular response, controlled. 3. Suspected bilateral upper lobe pneumonia. 4. Abdominal pain, likely biliary colic due to cholelithiasis without evidence of cholecystitis. 5. Demand ischemia. 6. Cholelithiasis. 7. Dyslipidemia. 8. Hypertension. 9. Morbid obesity with a BMI of 37.7. DISCHARGE MEDICATIONS: 1. Lisinopril 5 mg p.o. b.i.d. 2. Aldactone 25 mg daily. 3. Eliquis 5 mg p.o. b.i.d. 4. Amiodarone 200 mg daily. 5. Levofloxacin 750 mg for 5 more days. 6. Carvedilol 6.25 mg p.o. b.i.d. 7. Aspirin 81 mg daily. DISCHARGE FOLLOWUP: The patient was given referral to [facility] and outpatient cardiac rehab. She was also given referral for General Surgery, Dr. Ramirez, for possible cholecystectomy at a later date when her cardiac function has improved. She was also given referral to Dr. Jaciel Somers at the Cardiology Department as they have seen the patient here. The patient, however, thinks that she would rather follow up with her own honest john rocket crew member at [facility]. PROCEDURES DONE IN THE HOSPITAL: 1. Abdominal ultrasound upon presentation, which shows cholelithiasis without evidence of cholecystitis. 2. Transthoracic echocardiogram, which shows EF of 30% to 35%, moderately dilated left ventricle, and tricuspid regurgitation. 3. CT scan of the abdomen and pelvis, which is negative for any acute intraabdominal pathology. Gallstones were seen. IN-HOUSE CONSULTATION: Cardiology, Dr. Somers and Dr. Staurt, saw the patient. HISTORY OF PRESENTING ILLNESS: Ms. Worley is a 67-year-old female with known history of chronic atrial fibrillation, chronic anticoagulation, morbid obesity, hypertension, and dyslipidemia, who presented to the emergency room with complaints of abdominal pain, which was generalized, as well as cough and fever. She was found to be in atrial fibrillation with RVR and possible pneumonia. She was admitted on Cardizem drip and antibiotics. Please see admission history and physical for further details. Cardiology was consulted. An echo was ordered. HOSPITAL COURSE: The patient's rate was controlled initially with Cardizem drip, and later she was stable when it was changed to oral beta-blockers with continuation of amiodarone that the patient was already on. Eliquis was continued in the hospital as well. Cardiology saw the patient, and echo showed low ejection fractions. A LifeVest was fitted for the patient. She was started on lisinopril, Aldactone, and aspirin prior to discharge as well. All the new prescriptions were provided to her. With regard to her abdominal pain, there was evidence of cholelithiasis without evidence of cholecystitis. A CT scan was also done, which did not show any acute intraabdominal pathology. The patient's abdominal pain resolved spontaneously. She had no evidence to suggest jaundice or infection of the gallbladder. Her liver enzymes were unremarkable. She is given followup referral for General Surgery. She is currently symptom free and not very stable in terms of her cardiac condition to undergo any type of surgery. The patient understood and agreed with the plan. There was some question of possible pneumonia for this patient, but she had no leukocytosis, and her cultures were negative. She was treated with oral levofloxacin. Influenza was negative. She was cleared for discharge this morning from Cardiology standpoint as well. She was seen and examined prior to discharge and is feeling better and eating her lunch at the time of my examination. PHYSICAL EXAMINATION: This morning includes, VITAL SIGNS: Temperature 97.7, heart rate 77, respirations 16, saturating 100% on room air, and blood pressure 140/93. GENERAL: No acute distress. Awake, alert, and oriented x3. CHEST: Clear to auscultation bilaterally. Rate rhythm is regular actually. She will follow with primary care physician as soon as possible and Cardiology either Dr. Somers or her own honest john rocket crew member as soon as possible. A LifeVest was fitted prior to discharge, and she was given referral with [facility] and outpatient cardiac rehab. DISCHARGE PLAN: Discharge plan was discussed with the patient, who verbalized understanding. TIME SPENT: Total time spent in the discharge of this patient 36 minutes. Job ID: [id number]
== END 2018-03-22 17:12 | disposition home or self-care (01) | DRG 314 ==
LOC: ERS 05:55 → 2SE 07:53 → 2NO 03-20 16:34
PROVIDERS: ADMIT Internal Medicine; ATTEND Internal Medicine
DX: I42.9 Cardiomyopathy, unspecified (principal); J18.9 Pneumonia, unspecified organism; Z68.41 Body mass index [BMI] 40.0-44.9, adult; I48.2 Chronic atrial fibrillation; E78.5 Hyperlipidemia, unspecified; E66.01 Morbid (severe) obesity due to excess calories; K80.20 Calculus of gallbladder without cholecystitis without obstruction; I07.1 Rheumatic tricuspid insufficiency
CPT/HCPCS: 36415; 71045; 74176; 76705; 80048; 80053; 81003; 82553; 83605; 83690; 83880; 84484; 85025; 87040; 87804; 93005; 93306; 94640; 96361; 96365; 96366; 96367; 96375; J0456; J0696; J1160; J1940; J2270; J2405; J7050; J7620

== ENCOUNTER 2019-04-28 09:12 | Observation (INO) | payer MEDICARE, MEDICAID ==
[2019-04-28 11:26] LABS: #Eosinphils 0.1 thou/uL (0.0-0.7); #Lymphocytes 1.5 thou/uL (1.20-3.40); #Monocytes 0.6 thou/uL (0.11-0.59); #Neutrophils 4.8 thou/uL (1.40-6.50); %Basophils 0.3 % (0.0-1.0); %Eosinophils 0.8 % (0.0-10.0); %Lymphocytes 21.9 % (21.0-51.0); %Monocytes 8.5 % (0.0-10.0); %Neutrophils 68.5 % (42.0-75.0); Hemoglobin 11.6 g/dL (12.0-16.0); Mean Corpuscular HGB CONC 32.1 g/dL (32.0-36.0); Mean Corpuscular Hemoglobin 29.1 pg (27.0-31.0); Mean Corpuscular Volume 90.6 fL (78.0-98.0); Mean Platelet Volume 10.2 fL (7.4-10.4); Platelet Count 126 thou/uL (130-400); RBC Distribution Width 12.1 % (11.5-14.5); Red Blood Cell (RBC) Count 3.98 mill/uL (4.20-5.40)
[2019-04-28 11:40] LABS: Bilirubin Negative (Negative); Blood, Urine Negative (Negative); Clarity Clear (Clear); Glucose, Urine (Dipstick) Normal (Negative); Leukocyte Negative Leu/uL (Negative); Nitrite Negative (Negative); Protein, Urine (Dipstick) Negative (Neg-Trace); Urobilinogen Normal mg/dL (Less than 2)
[2019-04-28 11:41] LABS: ALT (SGPT) 16 U/L (8-55); AST (SGOT) 16 U/L (5-34); Albumin 3.9 g/dL (3.4-4.8); Alkaline Phosphatase 85 U/L (40-110); Anion Gap 12 mmol/L (10-20); BUN (Urea Nitrogen) 21 mg/dL (9.8-20.1); Bilirubin, Total 0.5 mg/dL (0.2-1.2); Calc. Creatinine Clearance 0 mL/min (70-130); Carbon Dioxide 27 mmol/L (23-31); Chloride 105 mmol/L (98-107); Estimated GFR-MDRD 81; Globulin 2.5 g/dL (2.4-3.5); Glucose 84 mg/dL (80-115); Lipase 12 U/L (8-78); Potassium 4.2 mmol/L (3.5-5.1); Protein, Total 6.4 g/dL (6.0-8.3); Sodium 140 mmol/L (136-145)
--- NOTE | 2019-04-28 11:46 | RAD ---
Portable frontal chest radiograph: 04/28/2019 COMPARISON: 03/18/2018 HISTORY: Cough FINDINGS: Stable enlargement of the cardiac silhouette. There is leftward deviation of the trachea wh ich appears narrowed secondary to a soft tissue density in the right paratracheal region. When correlated with a CT angiogram of the chest performed 03/24/2017, this finding is stable and consistent with mass effect from a large right thyroid mass. Nonemergent follow-up thyroid ultrasound advised. No pneumothorax or pleural fluid. No focal consolidation or alveolar edema. IMPRESSION: No acute findings. Soft tissue density in the right paratracheal region is consistent wit h incompletely assessed thyroid mass noted on prior CT angiogram of the chest. Recommend nonemergent thyroid ultrasound for further assessment. CODE T
[2019-04-28] MEDS ORDERED: Aspirin 325 MG TAB ONE (13:22)
[2019-04-28] MEDS ORDERED: Ondansetron PF 4 MG/2 ML Vial ONE (13:22)
[2019-04-28] MEDS ORDERED: Morphine 4 MG/ML VIAL ONE (13:22)
[2019-04-28] MEDS ORDERED: Nitroglycerin 2% Ointment 1 INCH/1 GM Packet ONE (13:44)
[2019-04-28] MEDS ORDERED: Furosemide 20 MG/2 ML VIAL ONE (14:41)
[2019-04-28 15:04] LABS: Troponin I 0.037 ng/mL (< 0.028)
[2019-04-28] MEDS ORDERED: hydrALAZINE 20 MG/ML VIAL SLOW IVP PRN (16:06)
--- NOTE | 2019-04-28 16:14 | PDOC.FPRHP ---
- History of Present Illness Chief Complaint: L hip pain History of Present Illness: 68 yo F presents for L hip pain that is worse at night for the past 2 days. She also reports some nausea and loose stools on Friday after taking peptobismol. She states this has resolved. Pt reports a dry cough that is worse at night for the past day. She reports her ankles swelled yesterday after eating too much salt. Denies chest pain, denies SOB. Pt reports hx of CHF and afib. She sees Dr. Persaud at [facility]. She states she wore a life vest for 6 months. She states her imaging administrator took her off of eliquis. She states her last stress test was more than 5 years ago. ED Course: Pt had SBP 120 on arrival, with indeterminate troponin and BNP of 200s. Furosemide 20 mg, zofran, nitro-bid paste, morphine, ASA 324. CXR showed no acute abnormality EKG showed sinus bradycardia. - Allergies/Adverse Reactions Allergies Allergy/AdvReac Type Severity Reaction Status Date / Time No Known Allergies Allergy Verified 04/28/19 17:34 - Home Medications Medication Instructions Recorded Confirmed Type Amiodarone [Cordarone] 200 mg PO BID 03/18/18 04/28/19 History Aspirin [Aspirin EC] 81 mg PO DAILY #60 tablet. 03/22/18 04/28/19 Rx Spironolactone [Aldactone] 25 mg PO DAILY #60 tab 03/22/18 04/28/19 Rx Carvedilol [Coreg] 25 mg PO BID-WM 04/28/19 04/28/19 History FLUoxetine HCl [Prozac] 20 mg PO DAILY 04/28/19 04/28/19 History Olmesartan Medoxomil [Benicar] 20 mg PO DAILY 04/28/19 04/28/19 History tiZANidine HCl [Tizanidine HCl] 1 - 2 tab PO Q8HR PRN 04/28/19 04/28/19 History - History PMHx: HTN, hx of afib, osteoarthritis, MDD, GERD PSHx: L knee surery, FHx: denies fam hx of diabetes, cancer Social: no tobacco use, occasional alcohol, no drug use - Review of Systems General: reports: fatigue. denies: fever/chills, weight/appetite/sleep changes Eyes: denies: eye pain, vision changes ENT: reports: nasal congestion. denies: rhinorrhea Respiratory: reports: cough. denies: congestion, shortness of breath Cardiovascular: reports: edema, orthopnea. denies: chest pain, palpitation Gastrointestinal: reports: nausea, diarrhea. denies: vomiting, constipation, abdominal pain, GI bleeding Genitourinary: denies: incontinence, dysuria Skin: denies: rashes, lesions Musculoskeletal: reports: pain, tenderness. denies: stiffness, arthritis/ arthralgias Neurological: denies: numbness, weakness Psychological: reports: depression. denies: anxiety - Vital signs BP: 160/74, Pulse: 62, Resp: 18, Temp: 98.2 (Oral), Pain: 0, Time: 04/28/2019 15: 10. Wt 94.8 kg - Physical Exam Constitutional: NAD, awake, alert and oriented HEENT: normocephalic and atraumatic, PERRLA Neck: supple, trachea midline -Neck: small thyroid mass right thyroid Heart: RRR, other (systolic 2/6 murmur 1+ pitting edema bilat lower extremities) Lungs: CTAB, good air movement, no rales/rhonchi, no wheezing Abdomen: soft, non-tender, bowel sounds present, no masses/distention Musculoskeletal: normal structure, normal tone, ROM grossly normal, other (Mild TTP lateral L hip) Neurological: no focal deficit, CN II-XII intact Skin: no rash/lesions, good turgor, capillary refill <2 seconds Heme/Lymphatic: no unusual bruising or bleeding, no purpura Psychiatric: normal mood and affect, good judgment and insight, intact recent and remote memory FMR H&P: Results - Labs Result Diagrams: 04/28/19 11:07 04/28/19 11:07 Lab results: WBC 7.0 thou/uL (4.8-10.8) 04/28/19 11:07 Hgb 11.6 g/dL (12.0-16.0) L 04/28/19 11:07 Hct 36.1 % (36.0-47.0) 04/28/19 11:07 MCV 90.6 fL (78.0-98.0) 04/28/19 11:07 Plt Count 126 thou/uL (130-400) L 04/28/19 11:07 Neutrophils % 68.5 % (42.0-75.0) 04/28/19 11:07 Sodium 140 mmol/L (136-145) 04/28/19 11:07 Potassium 4.2 mmol/L (3.5-5.1) 04/28/19 11:07 Chloride 105 mmol/L (98-107) 04/28/19 11:07 Carbon Dioxide 27 mmol/L (23-31) 04/28/19 11:07 BUN 21 mg/dL (9.8-20.1) H 04/28/19 11:07 Creatinine 0.84 mg/dL (0.6-1.1) 04/28/19 11:07 Glucose 84 mg/dL (80-115) 04/28/19 11:07 Calcium 9.0 mg/dL (7.8-10.44) 04/28/19 11:07 Total Bilirubin 0.5 mg/dL (0.2-1.2) 04/28/19 11:07 AST 16 U/L (5-34) 04/28/19 11:07 ALT 16 U/L (8-55) 04/28/19 11:07 Alkaline Phosphatase 85 U/L (40-110) 04/28/19 11:07 CK-MB (CK-2) 1.0 ng/mL (0-6.6) 04/28/19 11:07 B-Natriuretic Peptide 215.0 pg/mL (0-100) H 04/28/19 11:07 Serum Total Protein 6.4 g/dL (6.0-8.3) 04/28/19 11:07 Albumin 3.9 g/dL (3.4-4.8) 04/28/19 11:07 Lipase 12 U/L (8-78) 04/28/19 11:07 Urine Ketones Negative mg/dL (Negative) 04/28/19 11:11 Urine Blood Negative (Negative) 04/28/19 11:11 Urine Nitrite Negative (Negative) 04/28/19 11:11 Ur Leukocyte Esterase Negative Niko/uL (Negative) 04/28/19 11:11 - EKG Interpretation EKG: sinus bradycardia FMR H&P: A/P - Problem List (1) Hypertensive urgency Current Visit: Yes Status: Acute Code(s): I16.0 - HYPERTENSIVE URGENCY (2) GERD (gastroesophageal reflux disease) Current Visit: Yes Status: Chronic Code(s): K21.9 - GASTRO-ESOPHAGEAL REFLUX DISEASE WITHOUT ESOPHAGITIS (3) HFrEF (heart failure with reduced ejection fraction) Current Visit: Yes Status: Chronic Code(s): I50.20 - UNSPECIFIED SYSTOLIC ( CONGESTIVE) HEART FAILURE (4) Osteoarthritis Current Visit: Yes Status: Chronic Code(s): M19.90 - UNSPECIFIED OSTEOARTHRITIS, UNSPECIFIED SITE (5) Hypertension Current Visit: No Status: Chronic Code(s): I10 - ESSENTIAL (PRIMARY) HYPERTENSION Qualifiers: Hypertension type: essential hypertension Qualified Code(s): I10 - Essential (primary) hypertension - Plan Hypertensive Urgency -SBP 220 on presentation, Trop indeterminate at 0.046. Trop trended down to 0.037. -EKG shows sinus bradycardia in the 50s, CXR shows no acute findings -S/p nitro, ASA in ED; SBP improved to 160s. -Patient is not having chest pain or SOB, however HEART score of 4 and last stress test was more 5 years ago. -NPO @ midnight for NM stress test in the AM -PRN hydralazine for SBP >180 -Restart home medications, hold BB for stress HFrEF with suspected acute CHF exacerbation -Echo 1 yr ago shows EF 30-35% with moderate LA dilation -Pt reports orthopnea and BLE edema since yesterday -BNP elevated to 200s -S/p lasix -Strict I/Os Thrombocytopenia -126, appears to be chronic L hip pain -Suspect bursitis -resolved with morphine -recommended using a pillow between knees at night time -Follow up with PCP after discharge DVT ppx: lovenox Diet: HH, NPO @ midnight PCP: Yobany Code status: Full Dr. Chetan Tang PGY2 Addendum - Attending - Attending Attestation Date/Time: 04/28/19 9802 I personally evaluated the patient and discussed the management with Dr. Sherry Tang. I agree with the History, Examination, Assessment and Plan documented above with any addition or exceptions noted below. Patient here with history of CHF and elevated BP with indeterminate troponins. Will admit for ACS r/o, HTN urgency with medication modulation as needed. Further mgmt per clinical course. Consider stress testing if not done recently.
[2019-04-28] MEDS ORDERED: Enoxaparin Sodium 40 MG/0.4 ML SYRINGE SC SCH (16:28)
[2019-04-28] MEDS ORDERED: Ondansetron ODT 4 MG TAB PO PRN (16:28)
[2019-04-28 16:49] VITALS: BMI 39.1
[2019-04-28] MEDS: Famotidine 20 MG TAB PO SCH (20:10)
[2019-04-28] MEDS: Acetaminophen 325 MG TAB PO PRN (20:10)
[2019-04-28] MEDS: Amiodarone 200 MG TAB PO SCH (20:10)
--- NOTE | 2019-04-29 06:36 | PDOC.FM ---
- Subjective Subjective: Pt denies any cp, sob. c/o cough with white productive sputum. no overnight events. - Objective MAR Reviewed: Yes Vital Signs & Weight: Vital Signs (12 hours) Temp Pulse Resp BP Pulse Ox 04/29/19 04:20 97.7 F 54 L 13 180/74 H 99 04/29/19 00:06 97.8 F 55 L 16 177/72 H 96 04/28/19 20:28 96 04/28/19 19:48 97.8 F 62 16 166/72 H 95 Weight Weight 106.594 kg I&O: 04/27/19 04/28/19 04/29/19 06:59 06:59 06:59 Intake Total 240 Output Total 200 Balance 40 Result Diagrams: 04/28/19 11:07 04/28/19 11:07 Phys Exam - Physical Examination Constitutional: NAD HEENT: moist MMs, sclera anicteric Neck: no nodes, no JVD, supple Respiratory: no wheezing, no rales, no rhonchi, clear to auscultation bilateral Cardiovascular: RRR, no rub 2/3 sys murmur loudest over aortic vlave. Gastrointestinal: soft, non-tender Musculoskeletal: no edema, pulses present Neurological: non-focal, normal sensation, moves all 4 limbs Psychiatric: normal affect, A&O x 3 Skin: no rash, normal turgor, cap refill <2 seconds Dx/Plan (1) Hypertensive urgency Code(s): I16.0 - HYPERTENSIVE URGENCY Status: Acute (2) HFrEF (heart failure with reduced ejection fraction) Code(s): I50.20 - UNSPECIFIED SYSTOLIC (CONGESTIVE) HEART FAILURE Status: Chronic (3) Dyslipidemia Code(s): E78.5 - HYPERLIPIDEMIA, UNSPECIFIED Status: Chronic (4) Hypertension Code(s): I10 - ESSENTIAL (PRIMARY) HYPERTENSION Status: Chronic Qualifiers: Hypertension type: essential hypertension Qualified Code(s): I10 - Essential (primary) hypertension - Plan Plan: Hypertensive Urgency -SBP 220 on presentation, Trop indeterminate at 0.046. Trop trended down to 0.037. -EKG shows sinus bradycardia in the 50s, CXR shows no acute findings -S/p nitro, ASA in ED; SBP improved to 160s. -Patient is not having chest pain or SOB, however HEART score of 4 and last stress test was more 5 years ago. -NPO @ midnight for NM stress test this AM -PRN hydralazine for SBP >180 -Restart home medications, hold BB for stress HFrEF with suspected acute CHF exacerbation -Echo 1 yr ago shows EF 30-35% with moderate LA dilation -Ordered repeat echo -Pt reports orthopnea and BLE edema since yesterday -BNP elevated to 200s -S/p lasix -Strict I/Os Thrombocytopenia -126, appears to be chronic L hip pain -Suspect bursitis -resolved with morphine -recommended using a pillow between knees at night time -Follow up with PCP after discharge DVT ppx: lovenox Diet: HH, NPO @ midnight PCP: Yobany Code status: Full Addendum - Attending - Attending Attestation Date/Time: 04/29/19 1950 I personally evaluated the patient and discussed the management with Dr. Abebe. I agree with the History, Examination, Assessment and Plan documented above with any addition or exceptions noted below.
[2019-04-29] MEDS: Furosemide 20 MG TAB PO SCH (08:26)
[2019-04-29] MEDS: Spironolactone 25 MG TAB PO SCH (08:26)
[2019-04-29] MEDS: Aspirin 81 mg Enteric Coated Tablet PO SCH (08:26)
[2019-04-29] MEDS ORDERED: Losartan 25 MG TAB PO SCH (09:00)
[2019-04-29] MEDS ORDERED: Prevnar 13-Val Conj/PF 0.5 ML SYRINGE IM ONE (09:00)
--- NOTE | 2019-04-29 11:22 | NM ---
EXAM: Cardiac SPECT HISTORY: Chest pain PROTOCOL: Stress only, single isotope TYPE OF STRESS: Pharmacologic stress with adenosine was monitored and interpreted by Dr. Alejandro RADIOPHARMACEUTICAL: 30 mCi technetium 99m-sestamibi injected intravenously FINDINGS: Homogeneous tracer distribution is seen in the myocardial segments on the post stress images. Gated SPECT LVEF: 60%% Wall motion exam: Normal IMPRESSION: Normal post stress myocardial perfusion scan.
[2019-04-29] MEDS: Enoxaparin Sodium 40 MG/0.4 ML SYRINGE SC SCH (11:33)
[2019-04-29] MEDS: Famotidine 20 MG TAB PO SCH ×2 (11:33→21:54)
[2019-04-29] MEDS: Amiodarone 200 MG TAB PO SCH ×2 (11:35→21:54)
--- NOTE | 2019-04-29 14:25 | PDOC.BPN ---
- Brief Progress Note normal stress test EF 60% Will restart home coreg BP still trending high Monitor overnight to manage BP and monitor for bradycardia
[2019-04-29] MEDS: Carvedilol 25 MG TAB PO SCH (16:43)
[2019-04-29] MEDS: Acetaminophen 325 MG TAB PO PRN (19:02)
--- NOTE | 2019-04-30 06:47 | PDOC.FM ---
- Subjective Subjective: Pt denies CP, SOB. C/o N and an episode of vomiting overnight. Denies any abd pain. SR in 60's overnight. BP's elevated. - Objective MAR Reviewed: Yes Vital Signs & Weight: Vital Signs (12 hours) Temp Pulse Resp BP Pulse Ox 04/30/19 03:38 98.8 F 68 16 172/75 H 94 L 04/30/19 00:18 98.4 F 70 16 130/67 98 04/29/19 20:59 98.9 F 62 16 137/64 97 Weight Weight 103.102 kg I&O: 04/28/19 04/29/19 04/30/19 06:59 06:59 06:59 Intake Total 390 1480 Output Total 200 500 Balance 190 980 Result Diagrams: 04/28/19 11:07 04/28/19 11:07 Phys Exam - Physical Examination Constitutional: NAD HEENT: moist MMs, sclera anicteric Neck: no JVD, full ROM Respiratory: no wheezing, no rales, no rhonchi, clear to auscultation bilateral Cardiovascular: RRR, no rub sys murmur 3/6 Gastrointestinal: soft, non-tender, no distention, positive bowel sounds Musculoskeletal: no edema, pulses present Neurological: non-focal, normal sensation, moves all 4 limbs Psychiatric: normal affect, A&O x 3 Skin: no rash, normal turgor, cap refill <2 seconds Dx/Plan (1) Hypertensive urgency Code(s): I16.0 - HYPERTENSIVE URGENCY Status: Acute (2) HFrEF (heart failure with reduced ejection fraction) Code(s): I50.20 - UNSPECIFIED SYSTOLIC (CONGESTIVE) HEART FAILURE Status: Chronic (3) Dyslipidemia Code(s): E78.5 - HYPERLIPIDEMIA, UNSPECIFIED Status: Chronic (4) Hypertension Code(s): I10 - ESSENTIAL (PRIMARY) HYPERTENSION Status: Chronic Qualifiers: Hypertension type: essential hypertension Qualified Code(s): I10 - Essential (primary) hypertension - Plan Plan: Hypertensive Urgency -SBP 220 on presentation, Trop indeterminate at 0.046. Trop trended down to 0.037. -EKG shows sinus bradycardia in the 50s, CXR shows no acute findings -S/p nitro, ASA in ED; SBP improved to 160s. -Patient is not having chest pain or SOB, however HEART score of 4 and last stress test was more 5 years ago. -PRN hydralazine for SBP >180 -Restarted home medications, increased losartan to 100 mg daily, and added HCTZ 12.5 mg. BP's gradually lowering, but still elevated. - Stress normal, EF 60%. HFrEF with suspected acute CHF exacerbation -Echo 1 yr ago shows EF 30-35% with moderate LA dilation -repeat echo: EF 55-60%, aortic stenosis with gradient 20 mmHG, increased pulmonary artery pressures. -Pt reports orthopnea and BLE edema -BNP elevated to 200s -S/p lasix -Strict I/Os N/V -gave zofran and phenergan PRN for alleviation of symptoms Increased PA pressure - Will arrange for outpt sleep study as CHRISTOPHER possible cause for pulmonary HTN - Pt admits to snoring, never had sleep study. Thrombocytopenia -126, appears to be chronic L hip pain -Suspect bursitis -resolved with morphine -recommended using a pillow between knees at night time -Follow up with PCP after discharge DVT ppx: lovenox Diet: RODRIGO NPO @ midnight PCP: Yobany Code status: Full Addendum - Attending - Attending Attestation Date/Time: 04/30/19 1038 I personally evaluated the patient and discussed the management with Dr. Abebe. I agree with the History, Examination, Assessment and Plan documented above with any addition or exceptions noted below.
[2019-04-30] MEDS ORDERED: Promethazine HCl 25 MG/ML VIAL IM/IV PRN (08:05)
[2019-04-30] MEDS ORDERED: Hydrochlorothiazide 25 MG TAB PO SCH (09:00)
[2019-04-30] MEDS ORDERED: Losartan 25 MG TAB PO SCH (09:00)
[2019-04-30] MEDS: Aspirin 81 mg Enteric Coated Tablet PO SCH (09:22)
[2019-04-30] MEDS: Carvedilol 25 MG TAB PO SCH (09:22)
[2019-04-30] MEDS: Amiodarone 200 MG TAB PO SCH (09:22)
[2019-04-30] MEDS: Enoxaparin Sodium 40 MG/0.4 ML SYRINGE SC SCH (09:22)
[2019-04-30] MEDS: Spironolactone 25 MG TAB PO SCH (09:23)
[2019-04-30] MEDS: Furosemide 20 MG TAB PO SCH (09:23)
[2019-04-30] MEDS: Famotidine 20 MG TAB PO SCH (09:23)
[2019-04-30 12:14] VITALS: BP 133/59; TEMP 98.4
--- NOTE | 2019-04-30 16:12 | DIS ---
DATE OF ADMISSION: 04/28/2019 DATE OF DISCHARGE: 04/30/2019 ADMITTING ATTENDING: Terrell Ovalle MD DISCHARGE ATTENDING: Terrell Ovalle MD RESIDENT: Shelia Abebe DO CONSULTS: Case Management. PROCEDURES: Nuclear medicine stress test, which resulted as normal. Echocardiogram, which resulted as an EF of 55% to 60% with aortic stenosis with a gradient of 20 mmHg and increased pulmonary artery pressures. DIAGNOSES: 1. Hypertensive urgencies. 2.heart failure with preserved ejection fraction, nausea and vomiting. 3. Increased pulmonary artery pressures, suspect pulmonary hypertension. 4. Thrombocytopenia. 5. Left hip pain. DISCHARGE MEDICATIONS: 1. Hydrochlorothiazide 12.5 mg p.o. daily. 2. Losartan 100 mg p.o. daily. 3. Zofran 4 mg p.o. q.6 hours p.r.n. for nausea, vomiting. 4. Amiodarone 200 mg p.o. b.i.d. 5. Aspirin 81 mg p.o. daily. 6. Cozaar 25 mg p.o. b.i.d. 7. Spironolactone 25 mg p.o. daily. 8. Fluoxetine 20 mg p.o. daily. 9. Tizanidine 4 mg p.o. q.8 hours p.r.n. for muscle spasms. DISCONTINUED MEDICATIONS: Olmesartan 20 mg daily. HISTORY OF PRESENT ILLNESS/HOSPITAL COURSE: Ms. Worley is a 68-year-old female , who came into the emergency department and was found to have a troponin of 0.046, which downtrended over time to 0.037. Chest x-ray showed no acute findings. BNP was elevated to 200. EKG showed sinus bradycardia. The patient was admitted for hypertensive urgency due to blood pressure of 220s and elevated troponin and her sinus bradycardia. She underwent ACS rule out and had a nuclear medicine stress test, which showed normal perfusion as well as EF of 60%. An echocardiogram, which showed EF of 55% to 60% with aortic stenosis with a gradient of 20 mmHg and increased pulmonary artery pressures. The patient had elevated blood pressures throughout her hospital stay and we increased her losartan to 100 mg p.o. daily and also added hydrochlorothiazide 12.5 mg. Her ejection fraction is improved from previously when she had an EF of 30% to 35%. The patient did not have any more chest pain once admitted to the hospital. She was started on Lasix while in the hospital because when she first came in, she appeared to be a little bit volume overloaded. She was euvolemic upon discharge. It is recommended due to her trouble with controlling blood pressure and increase in pulmonary artery pressures that she undergo a sleep study and outpatient study setting to rule out obstructive sleep apnea as this might be contributing to her blood pressure problems. The patient 's blood pressure was in the 140s upon discharge, which is markedly improved from the 220, she was admitted with. DISPOSITION: Stable upon discharge. DISCHARGE INSTRUCTIONS: 1. Location: To home. 2. Diet: Heart healthy. 3. Activity: As tolerated. 4. Followup: Follow up with primary care physician, Dr. Haywood in 3 days. Job ID: [id number] MTDD
--- NOTE | 2019-05-01 16:13 | EKG ---
Test Reason : Blood Pressure : / mmHG Vent. Rate : 054 BPM Atrial Rate : 054 BPM P-R Int : 178 ms QRS Dur : 084 ms QT Int : 464 ms P-R-T Axes : 048 -01 014 degrees QTc Int : 440 ms Sinus bradycardia Possible Left atrial enlargement Borderline ECG Confirmed by SEBAS MACKENZIE M.D. ([id number]), editor [employer] journal LEON MALDONADO ([id number]) on 05/01/2019 4:13:16 PM Referred By: Confirmed By:SEBAS MACKENZIE M.D.
== END 2019-04-30 13:14 | disposition home or self-care (01) ==
LOC: ERS 09:12 → INTOOBSV 14:05 → ERHOLD 14:05 → 2SW 16:25
PROVIDERS: ADMIT Student in an Organized Health Care Education/Training Program; ATTEND Student in an Organized Health Care Education/Training Program
DX: I16.0 Hypertensive urgency (principal); I11.0 Hypertensive heart disease with heart failure; I50.22 Chronic systolic (congestive) heart failure; D69.6 Thrombocytopenia, unspecified; M25.552 Pain in left hip; I48.91 Unspecified atrial fibrillation; M19.90 Unspecified osteoarthritis, unspecified site; K21.9 Gastro-esophageal reflux disease without esophagitis; F32.9 Major depressive disorder, single episode, unspecified; Z79.82 Long term (current) use of aspirin; Z79.899 Other long term (current) drug therapy
CPT/HCPCS: 71045; 78452; 80053; 81003; 82553; 83690; 83880; 84484 ×2; 85025; 87804 ×2; 93005; 93017; 93306; 94760; 96372 ×3; 96374; 96375 ×3; 99284; A9500; G0378 ×4; 36415; J0153; J0360; J1650; J1940; J2270; J2405; J2550; Q0162

== ENCOUNTER 2019-11-12 15:58 | Emergency (ER) | payer MEDICARE, MEDICAID ==
[2019-11-12 16:25] LABS: Bilirubin Negative (Negative); Blood, Urine Negative (Negative); Clarity Clear (Clear); Glucose, Urine (Dipstick) Normal (Negative); Ketone, Urine Negative (Negative); Leukocyte Negative Leu/uL (Negative); Nitrite Negative (Negative); Protein, Urine (Dipstick) Negative (Neg-Trace); Specific Gravity, Urine 1.024 (1.002-1.036); Urobilinogen Normal mg/dL (Less than 2); pH, Urine 6.5 (5.0-9.0)
[2019-11-12 17:15] LABS: #Eosinphils 0.1 thou/uL (0.0-0.7); #Monocytes 0.6 thou/uL (0.11-0.59); #Neutrophils 3.5 thou/uL (1.40-6.50); %Basophils 0.7 % (0.0-1.0); %Eosinophils 1.5 % (0.0-10.0); %Lymphocytes 32.1 % (21.0-51.0); %Monocytes 8.9 % (0.0-10.0); %Neutrophils 56.8 % (42.0-75.0); Hemoglobin 11.8 g/dL (12.0-16.0); Mean Corpuscular HGB CONC 32.3 g/dL (32.0-36.0); Mean Corpuscular Hemoglobin 28.3 pg (27.0-31.0); Mean Corpuscular Volume 87.7 fL (78.0-98.0); Platelet Count 152 thou/uL (130-400); RBC Distribution Width 11.5 % (11.5-14.5); Red Blood Cell (RBC) Count 4.16 mill/uL (4.20-5.40); White Blood Cell (WBC) Count 6.1 thou/uL (4.8-10.8)
[2019-11-12 17:36] LABS: ALT (SGPT) 20 U/L (8-55); AST (SGOT) 16 U/L (5-34); Alkaline Phosphatase 102 U/L (40-110); Anion Gap 14 mmol/L (10-20); BUN (Urea Nitrogen) 31 mg/dL (9.8-20.1); Bilirubin, Total 0.4 mg/dL (0.2-1.2); Calc. Creatinine Clearance 0 mL/min (70-130); Calcium 9.4 mg/dL (7.8-10.44); Carbon Dioxide 26 mmol/L (23-31); Chloride 104 mmol/L (98-107); Estimated GFR-MDRD 50; Globulin 3.1 g/dL (2.4-3.5); Glucose 106 mg/dL (83-110); Potassium 4.7 mmol/L (3.5-5.1); Protein, Total 7.1 g/dL (6.0-8.3); Sodium 139 mmol/L (136-145)
[2019-11-12] MEDS ORDERED: Ketorolac Tromethamine 30 MG/ML VIAL ONE (18:16)
== END 2019-11-12 18:41 | disposition home or self-care (01) ==
LOC: ERS 15:58
DX: M54.5 Low back pain (principal); M54.6 Pain in thoracic spine; I10 Essential (primary) hypertension; M19.90 Unspecified osteoarthritis, unspecified site; F32.9 Major depressive disorder, single episode, unspecified; I48.91 Unspecified atrial fibrillation; X50.0XXA Overexertion from strenuous movement or load, initial encounter
CPT/HCPCS: 36415; 80053; 81003; 85025; 96372; 99283; J1885

== ENCOUNTER 2019-12-11 16:09 | Emergency (ER) | payer MEDICARE, MEDICAID ==
[2019-12-11 16:48] LABS: Bilirubin Negative (Negative); Blood, Urine Negative (Negative); Glucose, Urine (Dipstick) Negative (Negative); Ketone, Urine Negative (Negative); Leukocyte Moderate (Negative); Nitrite Negative (Negative); Protein, Urine (Dipstick) Negative (Neg-Trace); Specific Gravity, Urine 1.025 (1.005-1.030); Urobilinogen 0.2 mg/dL (Less than 2)
[2019-12-11 16:49] LABS: Clarity Clear (Clear)
[2019-12-11 16:50] LABS: Other Microscopic Description Less than 2 mL rec'd
--- NOTE | 2019-12-11 17:13 | RAD ---
LUMBAR SPINE SERIES THREE VIEWS: 12/11/19 HISTORY: Back pain. COMPARISON: 05/31/04 plain film examination and a 03/21/18 CT study. There has been development of compression changes involving the superior and inferior end plates of L 3 probably on the basis of osteoporosis. This could represent more of acute osteoporotic type valdez joi change. There is no bony retropulsion. There are arthritic changes of the spine. Disc narrowing is most pronounced at L5-S1. Moderate degenerative facet changes are seen. Pedicles are intact. IMPRESSION: Diffuse osteoporosis with mild cupping to the superior and inferior end plates of L3 suggesting some osteoporotic type compression changes. These were not seen on a 2019 CT study. POS: OFF
[2019-12-11] MEDS ORDERED: Ketorolac Tromethamine 30 MG/ML VIAL ONE (17:27)
[2019-12-11] MEDS ORDERED: Acetaminophen 500 MG TAB ONE (17:27)
== END 2019-12-11 18:25 | disposition home or self-care (01) ==
LOC: ERS 16:09
DX: M54.5 Low back pain (principal); I48.91 Unspecified atrial fibrillation; I10 Essential (primary) hypertension; M19.90 Unspecified osteoarthritis, unspecified site; F32.9 Major depressive disorder, single episode, unspecified; Z79.899 Other long term (current) drug therapy
CPT/HCPCS: 72100; 81003; 81015; 96372; J1885

== ENCOUNTER 2020-04-08 03:16 | Inpatient (IN) | payer MEDICARE, MEDICAID ==
[2020-04-08] MEDS ORDERED: Diltiazem 125 MG/25 ML ONE (03:53)
[2020-04-08 04:00] LABS: #Lymphocytes 1.2 thou/uL (1.20-3.40); #Monocytes 0.7 thou/uL (0.11-0.59); #Neutrophils 9.3 thou/uL (1.40-6.50); %Basophils 0.3 % (0.0-1.0); %Eosinophils 0.2 % (0.0-10.0); %Lymphocytes 10.9 % (21.0-51.0); %Monocytes 6.5 % (0.0-10.0); %Neutrophils 82.1 % (42.0-75.0); Hemoglobin 11.7 g/dL (12.0-16.0); Mean Corpuscular HGB CONC 32.4 g/dL (32.0-36.0); Mean Corpuscular Hemoglobin 28.1 pg (27.0-31.0); Mean Corpuscular Volume 86.5 fL (78.0-98.0); Mean Platelet Volume 8.6 fL (7.4-10.4); Platelet Count 165 thou/uL (130-400); RBC Distribution Width 11.8 % (11.5-14.5); Red Blood Cell (RBC) Count 4.17 mill/uL (4.20-5.40); White Blood Cell (WBC) Count 11.3 thou/uL (4.8-10.8)
[2020-04-08 04:20] LABS: ALT (SGPT) 27 U/L (8-55); AST (SGOT) 20 U/L (5-34); Albumin 3.8 g/dL (3.4-4.8); Alkaline Phosphatase 103 U/L (40-110); Anion Gap 13 mmol/L (10-20); BUN (Urea Nitrogen) 14 mg/dL (9.8-20.1); Bilirubin, Total 0.8 mg/dL (0.2-1.2); Calc. Creatinine Clearance 0 mL/min (70-130); Calcium 9.2 mg/dL (7.8-10.44); Carbon Dioxide 27 mmol/L (23-31); Chloride 103 mmol/L (98-107); Globulin 3.3 g/dL (2.4-3.5); Glucose 120 mg/dL (83-110); Potassium 3.9 mmol/L (3.5-5.1); Protein, Total 7.1 g/dL (5.8-8.1); Sodium 139 mmol/L (136-145)
[2020-04-08 04:54] LABS: SARS-CoV-2 NAA Rapid Test Not Detected (NotDetected)
[2020-04-08] MEDS ORDERED: Diltiazem HCl 125 MG, Admixture Fee 1 EACH in Sodium Chloride 0.9% 100 ML IVPB SCH (06:00)
[2020-04-08] MEDS ORDERED: Benzonatate 100 MG CAP PO SCH (06:15)
[2020-04-08 07:46] LABS: Troponin I 0.021 ng/mL (< 0.028)
[2020-04-08] MEDS ORDERED: Ondansetron PF 4 MG/2 ML Vial IVP PRN (08:41)
[2020-04-08] MEDS ORDERED: Magnesium Sulfate 4 GM in Sodium Chloride 0.9% 250 ML 250 ML IVPB SCH (08:45)
[2020-04-08] MEDS ORDERED: Carvedilol 6.25 MG TAB PO SCH ×2 (09:00→17:00)
[2020-04-08 09:12] LABS: #Basophils 0.1 thou/uL (0.0-0.2); #Lymphocytes 1.5 thou/uL (1.20-3.40); #Monocytes 0.8 thou/uL (0.11-0.59); #Neutrophils 7.9 thou/uL (1.40-6.50); %Basophils 0.5 % (0.0-1.0); %Eosinophils 0.4 % (0.0-10.0); %Lymphocytes 14.2 % (21.0-51.0); %Monocytes 8.1 % (0.0-10.0); %Neutrophils 76.7 % (42.0-75.0); Hemoglobin 11.2 g/dL (12.0-16.0); Mean Corpuscular HGB CONC 32.6 g/dL (32.0-36.0); Mean Corpuscular Hemoglobin 28.1 pg (27.0-31.0); Mean Corpuscular Volume 86.3 fL (78.0-98.0); Mean Platelet Volume 8.6 fL (7.4-10.4); Platelet Count 151 thou/uL (130-400); RBC Distribution Width 11.8 % (11.5-14.5); Red Blood Cell (RBC) Count 3.99 mill/uL (4.20-5.40); White Blood Cell (WBC) Count 10.3 thou/uL (4.8-10.8)
[2020-04-08 09:31] LABS: Anion Gap 13 mmol/L (10-20); BUN (Urea Nitrogen) 12 mg/dL (9.8-20.1); Calc. Creatinine Clearance 0 mL/min (70-130); Carbon Dioxide 26 mmol/L (23-31); Chloride 102 mmol/L (98-107); Glucose 119 mg/dL (83-110); Potassium 3.6 mmol/L (3.5-5.1); Sodium 137 mmol/L (136-145)
[2020-04-08] MEDS: Apixaban 5 MG TAB PO SCH ×2 (09:58→20:51)
--- NOTE | 2020-04-08 09:58 | RAD ---
PORTABLE CHEST: HISTORY: Cough. History of atrial fibrillation. COMPARISON: 04/28/2019 exam. FINDINGS: Heart size is enlarged. Slight increased density in the right lung base is felt to be most likely re lated to overlying soft tissue. No definitive infiltrative process. IMPRESSION: Cardiomegaly. No signs of overt failure. Slightly increased markings in the right base are felt jus t to represent superimposition of vascular markings and soft tissue. POS: EFREN
[2020-04-08] MEDS: guaiFENesin ER 600 MG TAB PO SCH ×2 (09:59→20:50)
[2020-04-08] MEDS ORDERED: Levalbuterol HCl 1.25 MG/0.5 ML NEB NEB PRN (10:34)
--- NOTE | 2020-04-08 10:43 | PDOC.HHP ---
Hospitalist ITZEL Cough History of Present Illness: Patient is 69-year-old female with PMH of A. fib, chronic HFpEF, HTN, depression, and chronic back pain who presents to the ED with productive cough (with white phlegm) that has been going on for the past 3 days. She also reports wheezing but denies shortness of breath, chest pain, fever, or chills. She says she has not been taking her carvedilol for the past 2 days due to her cough, however she has been taking her Eliquis. ED Course: On arrival to the ED, patient was noted to have A. fib with RVR with HR in the 120s. Afebrile, SPO2 in the high 90s on room air. Patient was started on Cardizem drip after she was given a bolus. Allergies/Adverse Reactions: Allergy/AdvReac Type Severity Reaction Status Date / Time No Known Allergies Allergy Verified 05/10/19 06:08 Home Medications: Medication Instructions Recorded Confirmed Type Amiodarone [Cordarone] 200 mg PO BID 03/18/18 04/28/19 History Aspirin [Aspirin EC] 81 mg PO DAILY #60 tablet.dr 03/22/18 04/28/19 Rx Spironolactone [Aldactone] 25 mg PO DAILY #60 tab 03/22/18 04/28/19 Rx Carvedilol [Coreg] 25 mg PO BID-WM 04/28/19 04/28/19 History FLUoxetine HCl [Prozac] 20 mg PO DAILY 04/28/19 04/28/19 History tiZANidine HCl [Tizanidine HCl] 1 - 2 tab PO Q8HR PRN 04/28/19 04/28/19 History Hydrochlorothiazide 12.5 mg PO DAILY #30 tab 04/30/19 Rx Losartan Potassium 100 mg PO DAILY #30 tablet 04/30/19 Rx Ondansetron [Zofran ODT] 4 mg PO Q6H PRN #8 tab 04/30/19 Rx Past History: PMHx:A. fib, chronic HFpEF, HTN, depression, and chronic back pain PSHx: , left knee surgery FHx: Mother: Heart disease Social: Drinks alcohol occasionally. She is never smoker. She denies drug use. Hospitalist ITZEL ROS Constitutional: denies: fever, chills Eyes: denies: vision change ENT: denies: throat pain Respiratory: reports: cough, wheezing. denies: shortness of breath Cardiovascular: denies: chest pain, palpitations Gastrointestinal: denies: nausea, vomiting, diarrhea Genitourinary: denies: dysuria Musculoskeletal: denies: back pain Other: Negative for headache All other systems reviewed; all pertinent +/- noted in HPI/Subj Hospitalist Exam Vitals: Vital Signs (12 hours) BP 04/08/20 09:58 101/70 General Appearance: NAD, awake alert Eye: PERRL ENT: no oropharyngeal lesions, moist mucosa Neck: supple Heart: no murmur Heart - other findings: Irregularly irregular, tachycardic Respiratory - other findings: Bilateral expiratory wheezing present, no respiratory distress Gastrointestinal: soft, non-distended, normal bowel sounds Gastrointestinal - other findings: Mild diffuse tenderness, with no guarding Extremities: no edema Neurological: normal sensation to touch, no weakness Musculoskeletal: normal strength Psychiatric: normal affect Hospitalist Results Result Diagrams: 04/08/20 09:01 04/08/20 09:01 Lab results: Laboratory Last Values WBC 10.3 thou/uL (4.8-10.8) 04/08/20 09: RBC 3.99 mill/uL (4.20-5.40) L 04/08/20 09:01 Hgb 11.2 g/dL (12.0-16.0) L 04/08/20 09:01 Hct 34.5 % (36.0-47.0) L 04/08/20 09:01 MCV 86.3 fL (78.0-98.0) 04/08/20 09:01 MCH 28.1 pg (27.0-31.0) 04/08/20 09:01 MCHC 32.6 g/dL (32.0-36.0) 04/08/20 09:01 RDW 11.8 % (11.5-14.5) 04/08/20 09: Plt Count 151 thou/uL (130-400) 04/08/20 09:01 MPV 8.6 fL (7.4-10.4) 04/08/20 09:01 Neutrophils % 76.7 % (42.0-75.0) H 04/08/20 09:01 Lymphocytes % 14.2 % (21.0-51.0) L 04/08/20 09:01 Monocytes % 8.1 % (0.0-10.0) 04/08/20 09:01 Eosinophils % 0.4 % (0.0-10.0) 04/08/20 09:01 Basophils % 0.5 % (0.0-1.0) 04/08/20 09:01 Neutrophils # 7.9 thou/uL (1.40-6.50) H 04/08/20 09:01 Lymphocytes # 1.5 thou/uL (1.20-3.40) 04/08/20 09:01 Monocytes # 0.8 thou/uL (0.11-0.59) H 04/08/20 09:01 Eosinophils # 0.0 thou/uL (0.0-0.7) 04/08/20 09:01 Basophils # 0.1 thou/uL (0.0-0.2) 04/08/20 09:01 Sodium 137 mmol/L (136-145) 04/08/20 09:01 Potassium 3.6 mmol/L (3.5-5.1) 04/08/20 09:01 Chloride 102 mmol/L (98-107) 04/08/20 09:01 Carbon Dioxide 26 mmol/L (23-31) 04/08/20 09:01 Anion Gap 13 mmol/L (10-20) 04/08/20 09:01 BUN 12 mg/dL (9.8-20.1) 04/08/20 09:01 Creatinine 0.84 mg/dL (0.6-1.1) 04/08/20 09:01 Estimated GFR (MDRD) 81 04/08/20 09:01 Glucose 119 mg/dL (83-110) H 04/08/20 09:01 Calcium 9.0 mg/dL (7.8-10.44) 04/08/20 09:01 Magnesium 1.6 mg/dL (1.6-2.6) 04/08/20 03:45 Total Bilirubin 0.8 mg/dL (0.2-1.2) 04/08/20 03:45 AST 20 U/L (5-34) 04/08/20 03:45 ALT 27 U/L (8-55) 04/08/20 03:45 Alkaline Phosphatase 103 U/L (40-110) 04/08/20 03:45 Troponin I 0.021 ng/mL (< 0.028) 04/08/20 07:05 B-Natriuretic Peptide 268.1 pg/mL (0-100) H 04/08/20 03:45 Serum Total Protein 7.1 g/dL (5.8-8.1) 04/08/20 03:45 Albumin 3.8 g/dL (3.4-4.8) 04/08/20 03:45 Globulin 3.3 g/dL (2.4-3.5) 04/08/20 03:45 Albumin/Globulin Ratio 1.2 g/dL (1.2-2.2) 04/08/20 03:45 Influenza A RNA INAAT Not Detected (NotDetected) 04/08/20 03:48 Influenza B RNA INAAT Not Detected (NotDetected) 04/08/20 03:48 SARS-CoV-2 Rap RNA(RT-PCR) Not Detected (NotDetected) 04/08/20 03:48 EKG Status: image reviewed by vt (A fib w rvr. Vent HR: 129) Chest x-ray Status: image reviewed by vt Hospitalist H&P A/P (1) Atrial fibrillation with RVR Code(s): I48.91 - UNSPECIFIED ATRIAL FIBRILLATION Status: Acute Assessment and Plan: Patient was noted to have A fib w rvr on presentation. She has not been taking her Carvedilol for the past [address] Echeverria at [facility] for [facility]ology. Plan: -cont Cardizem drip -restart home Carvedilol 12.5 mg bid -cont Eliquis -Keep K >4 and Mg >2. (2) Acute bronchiolitis Code(s): J21.9 - ACUTE BRONCHIOLITIS, UNSPECIFIED Status: Acute Assessment and Plan: Patient presented with cough. She has wheezing on exam. She has no known hx of COPD or Asthma. Denies hx of smoking. She is not requiring O2 supplement. CXR showed no infiltrate. COVID-19 is negative. Her symptoms are likely from acute v iral bronchitis. Plan: -O2 supplement prn -Levalbuterol Neb Q8H -Mucinex (3) (HFpEF) heart failure with preserved ejection fraction Code(s): I50.30 - UNSPECIFIED DIASTOLIC (CONGESTIVE) HEART FAILURE Status: Chronic Assessment and Plan: Echo done in 04/2019 showed EF: 55-60%. Currently euvolemic. Plan: -cont home meds (4) Hypertension Code(s): I10 - ESSENTIAL (PRIMARY) HYPERTENSION Status: Chronic Qualifiers: Hypertension type: essential hypertension Qualified Code(s): I10 - Essential (primary) hypertension Assessment and Plan: Plan: -cont home meds
[2020-04-08] MEDS ORDERED: Potassium Chloride 20 MEQ TAB PO SCH (10:45)
[2020-04-08 10:51] LABS: Troponin I 0.018 ng/mL (< 0.028)
[2020-04-08] MEDS ORDERED: Potassium Chloride 20 MEQ TAB ONE (14:33)
[2020-04-08] MEDS: Carvedilol 6.25 MG TAB PO SCH (16:48)
[2020-04-08 18:05] VITALS: BMI 44.4
[2020-04-08] MEDS: Diltiazem 125 MG in Sodium Chloride 0.9% 100 ML IVPB SCH (20:50)
[2020-04-09 05:38] LABS: #Basophils 0.1 thou/uL (0.0-0.2); #Eosinphils 0.1 thou/uL (0.0-0.7); #Lymphocytes 1.2 thou/uL (1.20-3.40); #Monocytes 0.9 thou/uL (0.11-0.59); #Neutrophils 7.6 thou/uL (1.40-6.50); %Basophils 0.5 % (0.0-1.0); %Eosinophils 0.6 % (0.0-10.0); %Lymphocytes 12.2 % (21.0-51.0); %Monocytes 8.8 % (0.0-10.0); %Neutrophils 77.9 % (42.0-75.0); Hemoglobin 11.3 g/dL (12.0-16.0); Mean Corpuscular HGB CONC 32.2 g/dL (32.0-36.0); Mean Corpuscular Hemoglobin 27.8 pg (27.0-31.0); Mean Corpuscular Volume 86.3 fL (78.0-98.0); Mean Platelet Volume 8.9 fL (7.4-10.4); Platelet Count 153 thou/uL (130-400); RBC Distribution Width 11.8 % (11.5-14.5); Red Blood Cell (RBC) Count 4.05 mill/uL (4.20-5.40); White Blood Cell (WBC) Count 9.7 thou/uL (4.8-10.8)
[2020-04-09 06:00] LABS: Anion Gap 11 mmol/L (10-20); BUN (Urea Nitrogen) 17 mg/dL (9.8-20.1); Calc. Creatinine Clearance 117 mL/min (70-130); Carbon Dioxide 24 mmol/L (23-31); Chloride 103 mmol/L (98-107); Glucose 107 mg/dL (83-110); Magnesium 2.2 mg/dL (1.6-2.6); Potassium 4.3 mmol/L (3.5-5.1); Sodium 134 mmol/L (136-145)
[2020-04-09] MEDS: Carvedilol 6.25 MG TAB PO SCH (08:46)
[2020-04-09] MEDS: Apixaban 5 MG TAB PO SCH ×2 (08:47→19:58)
[2020-04-09] MEDS: Hydrochlorothiazide 25 MG TAB PO SCH (08:47)
[2020-04-09] MEDS: Spironolactone 25 MG TAB PO SCH (08:47)
[2020-04-09] MEDS: guaiFENesin ER 600 MG TAB PO SCH ×2 (08:47→19:58)
[2020-04-09] MEDS: Diltiazem 125 MG in Sodium Chloride 0.9% 100 ML IVPB SCH (12:31)
--- NOTE | 2020-04-09 14:17 | PDOC.HOSPP ---
- Subjective Encounter Date: 04/09/20 Subjective: Patient states she is still having cough but this is better than yesterday. Also has some wheezing but no SOB. Denies chest pain. - Objective Vital Signs & Weight: Vital Signs (12 hours) Temp Pulse Resp BP BP Pulse Ox 04/09/20 11:44 98.3 F 105 H 20 135/66 93 L 04/09/20 07:15 98.6 F 77 16 130/60 93 L 04/09/20 04:00 98.2 F 116 H 18 128/64 93 L Weight Weight 259 lb 1.6 oz I&O: 04/08/20 04/09/20 04/10/20 06:59 06:59 06:59 Intake Total 310 Balance 310 Result Diagrams: 04/09/20 05:22 04/09/20 05:22 Hospitalist ROS - Review of Systems Respiratory: reports: cough. denies: shortness of breath Cardiovascular: denies: chest pain - Medication Medications: Active Medications Generic Name Dose Route Start Last Admin Trade Name Aayushq PRN Reason Stop Dose Admin Apixaban 5 mg 04/08/20 09:00 04/09/20 08:47 Apixaban 5 Mg Tab PO 5 mg BID CLARKE Administration Carvedilol 12.5 mg 04/08/20 17:00 04/09/20 08:46 Carvedilol 6.25 Mg Tab PO 12.5 mg BID-WM CLARKE Administration Guaifenesin 1,200 mg 04/08/20 09:00 04/09/20 08:47 Guaifenesin Er 600 Mg Tab PO 1,200 mg Q12HR CLARKE Administration Hydrochlorothiazide 25 mg 04/09/20 09:00 04/09/20 08:47 Hydrochlorothiazide 25 Mg Tab PO 25 mg DAILY CLARKE Administration Diltiazem HCl 125 mg/ Sodium 125 mls @ 7.5 mls/hr 04/08/20 20:30 04/09/20 12:31 Chloride IVPB 125 mls INF CLARKE Administration Protocol 7.5 MG/HR Pantoprazole Sodium 40 mg 04/09/20 09:00 04/09/20 08:47 Pantoprazole 40 Mg Tab PO 40 mg DAILY CLARKE Administration Sodium Chloride 10 ml 04/08/20 09:00 04/09/20 08:48 Flush - Normal Saline 10 Ml Syringe IVF 10 ml Q12HR CLARKE Administration Spironolactone 25 mg 04/09/20 08:00 04/09/20 08:47 Spironolactone 25 Mg Tab PO 25 mg QAM-[facility] Administration Hospitalist Exam Vitals: Vital Signs (12 hours) Temp Pulse Resp BP BP Pulse Ox 04/09/20 11:44 98.3 F 105 H 20 135/66 93 L 04/09/20 07:15 98.6 F 77 16 130/60 93 L 04/09/20 04:00 98.2 F 116 H 18 128/64 93 L Weight Weight 259 lb 1.6 oz General Appearance: NAD, awake alert ENT: moist mucosa Heart - other findings: irregularly irregluar, tachycardia Respiratory: CTAB, no wheezes, no tachypnea Gastrointestinal: soft, non-tender, non-distended, normal bowel sounds Extremities: no edema Psychiatric: normal affect Hosp A/P (1) Atrial fibrillation with RVR Code(s): I48.91 - UNSPECIFIED ATRIAL FIBRILLATION Status: Acute Plan: HR improved on Cardizem drip. Plan: -titrate down Cardizem drip -Carvedilol restarted yesterday -cont eliquis (2) Acute bronchiolitis Code(s): J21.9 - ACUTE BRONCHIOLITIS, UNSPECIFIED Status: Acute Plan: improving. Plan: -cont Mucinex (3) (HFpEF) heart failure with preserved ejection fraction Code(s): I50.30 - UNSPECIFIED DIASTOLIC (CONGESTIVE) HEART FAILURE Status: Chronic Plan: Euvolumic. Plan: -cont home meds (4) Hypertension Code(s): I10 - ESSENTIAL (PRIMARY) HYPERTENSION Status: Chronic Qualifiers: Hypertension type: essential hypertension Qualified Code(s): I10 - Essential (primary) hypertension Plan: Plan: -continue home meds
[2020-04-09] MEDS: Carvedilol 25 MG TAB PO SCH (16:25)
[2020-04-09] MEDS: Melatonin 3 MG TAB PO PRN (22:24)
[2020-04-09] MEDS: Benzonatate 100 MG CAP PO PRN (22:24)
[2020-04-10 05:41] LABS: #Eosinphils 0.1 thou/uL (0.0-0.7); #Lymphocytes 1.8 thou/uL (1.20-3.40); #Monocytes 1.1 thou/uL (0.11-0.59); #Neutrophils 6.1 thou/uL (1.40-6.50); %Basophils 0.3 % (0.0-1.0); %Eosinophils 0.8 % (0.0-10.0); %Lymphocytes 19.4 % (21.0-51.0); %Monocytes 12.2 % (0.0-10.0); %Neutrophils 67.3 % (42.0-75.0); Hemoglobin 11.2 g/dL (12.0-16.0); Mean Corpuscular HGB CONC 32.6 g/dL (32.0-36.0); Mean Platelet Volume 8.9 fL (7.4-10.4); Platelet Count 153 thou/uL (130-400); RBC Distribution Width 11.8 % (11.5-14.5); White Blood Cell (WBC) Count 9.1 thou/uL (4.8-10.8)
[2020-04-10 06:02] LABS: Anion Gap 12 mmol/L (10-20); BUN (Urea Nitrogen) 22 mg/dL (9.8-20.1); Calc. Creatinine Clearance 99 mL/min (70-130); Calcium 8.8 mg/dL (7.8-10.44); Carbon Dioxide 26 mmol/L (23-31); Chloride 103 mmol/L (98-107); Glucose 98 mg/dL (83-110); Potassium 4.3 mmol/L (3.5-5.1); Sodium 137 mmol/L (136-145)
[2020-04-10] MEDS: Acetaminophen 325 MG TAB PO PRN ×2 (06:14→21:04)
[2020-04-10] MEDS: Benzonatate 100 MG CAP PO PRN ×2 (06:14→21:03)
[2020-04-10] MEDS: Spironolactone 25 MG TAB PO SCH (08:21)
[2020-04-10] MEDS: Apixaban 5 MG TAB PO SCH ×2 (08:21→21:03)
[2020-04-10] MEDS: Carvedilol 25 MG TAB PO SCH ×2 (08:21→16:47)
[2020-04-10] MEDS: guaiFENesin ER 600 MG TAB PO SCH ×2 (08:21→21:03)
[2020-04-10] MEDS: Hydrochlorothiazide 25 MG TAB PO SCH (08:21)
--- NOTE | 2020-04-10 11:16 | PDOC.HOSPP ---
- Subjective Encounter Date: 04/10/20 Subjective: Patient states she still has cough but is better. She has lower/mid chest and epigastric abdominal pain when she coughs. Denies SOB. - Objective Vital Signs & Weight: Vital Signs (12 hours) Temp Pulse Resp BP Pulse Ox 04/10/20 08:00 98.5 F 92 16 119/57 L 110 H 04/10/20 03:45 98.6 F 112 H 19 112/57 L 96 04/10/20 03:27 95 04/09/20 23:45 104 H 121/56 L Weight Weight 259 lb 1.6 oz I&O: 04/09/20 04/10/20 04/11/20 06:59 06:59 06:59 Intake Total 310 1135 Balance 310 1135 Result Diagrams: 04/11/20 05:14 04/11/20 05:14 Hospitalist ROS - Medication Medications: Active Medications Generic Name Dose Route Start Last Admin Trade Name Freq PRN Reason Stop Dose Admin Acetaminophen 650 mg 04/08/20 08:41 04/10/20 06:14 Acetaminophen 325 Mg Tab PO 650 mg Q4H PRN Administration Headache/Fever/Mild Pain (1-3) Apixaban 5 mg 04/08/20 09:00 04/10/20 08:21 Apixaban 5 Mg Tab PO 5 mg BID CLARKE Administration Benzonatate 100 mg 04/09/20 21:54 04/10/20 06:14 Benzonatate 100 Mg Cap PO 100 mg TIDPRN PRN Administration Cough Carvedilol 25 mg 04/09/20 17:00 04/10/20 08:21 Carvedilol 25 Mg Tab PO 25 mg BID-WM CLARKE Administration Guaifenesin 1,200 mg 04/08/20 09:00 04/10/20 08:21 Guaifenesin Er 600 Mg Tab PO 1,200 mg Q12HR CLARKE Administration Hydrochlorothiazide 25 mg 04/09/20 09:00 04/10/20 08:21 Hydrochlorothiazide 25 Mg Tab PO 25 mg DAILY CLARKE Administration Diltiazem HCl 125 mg/ Sodium 125 mls @ 5 mls/hr 04/08/20 20:30 04/09/20 12:31 Chloride IVPB 125 mls INF CLARKE Administration Protocol 5 MG/HR Melatonin 3 mg 04/09/20 21:54 04/09/20 22:24 Melatonin 3 Mg Tab PO 3 mg HS PRN Administration Insomnia Pantoprazole Sodium 40 mg 04/09/20 09:00 04/10/20 08:21 Pantoprazole 40 Mg Tab PO 40 mg DAILY CLARKE Administration Sodium Chloride 10 ml 04/08/20 09:00 04/10/20 08:22 Flush - Normal Saline 10 Ml Syringe IVF 10 ml Q12HR CLARKE Administration Spironolactone 25 mg 04/09/20 08:00 04/10/20 08:21 Spironolactone 25 Mg Tab PO 25 mg QAM-WM CLARKE Administration Hospitalist Exam Vitals: Vital Signs (12 hours) Temp Pulse Resp BP Pulse Ox 04/10/20 08:00 98.5 F 92 16 119/57 L 110 H 04/10/20 03:45 98.6 F 112 H 19 112/57 L 96 04/10/20 03:27 95 04/09/20 23:45 104 H 121/56 L Weight Weight 259 lb 1.6 oz General Appearance: NAD ENT: moist mucosa Heart - other findings: irregularly irregular, tachycardic Respiratory: CTAB Respiratory - other findings: minimal expiratory wheezing Gastrointestinal: soft, non-tender, non-distended Extremities: no edema Psychiatric: normal affect Hosp A/P (1) Atrial fibrillation with RVR Code(s): I48.91 - UNSPECIFIED ATRIAL FIBRILLATION Status: Acute Plan: HR in the 90's to low 100's overnight. Plan: -will stop cardizem drip and monitor for HR -the dose for Coreg increased yesterday -cont Eliquis (2) Acute bronchiolitis Code(s): J21.9 - ACUTE BRONCHIOLITIS, UNSPECIFIED Status: Acute Plan: not requiring oxygen. Sputum culture grew normal respiratory andreina. Plan: -supportive care. Cough medication prn (3) (HFpEF) heart failure with preserved ejection fraction Code(s): I50.30 - UNSPECIFIED DIASTOLIC (CONGESTIVE) HEART FAILURE Status: Chr onic Plan: Euvolumic. Plan: -cont home med (4) Hypertension Code(s): I10 - ESSENTIAL (PRIMARY) HYPERTENSION Status: Chronic Qualifiers: Hypertension type: essential hypertension Qualified Code(s): I10 - Essential (primary) hypertension Plan: Plan: -cont home med
[2020-04-11 05:40] LABS: #Eosinphils 0.1 thou/uL (0.0-0.7); #Lymphocytes 2.6 thou/uL (1.20-3.40); #Monocytes 1.1 thou/uL (0.11-0.59); %Basophils 0.5 % (0.0-1.0); %Eosinophils 0.5 % (0.0-10.0); %Lymphocytes 26.4 % (21.0-51.0); %Monocytes 10.9 % (0.0-10.0); %Neutrophils 61.7 % (42.0-75.0); Hemoglobin 11.5 g/dL (12.0-16.0); Mean Corpuscular HGB CONC 31.6 g/dL (32.0-36.0); Mean Corpuscular Hemoglobin 27.4 pg (27.0-31.0); Mean Corpuscular Volume 86.6 fL (78.0-98.0); Mean Platelet Volume 9.1 fL (7.4-10.4); Platelet Count 162 thou/uL (130-400); RBC Distribution Width 11.9 % (11.5-14.5); Red Blood Cell (RBC) Count 4.21 mill/uL (4.20-5.40); White Blood Cell (WBC) Count 9.7 thou/uL (4.8-10.8)
[2020-04-11 05:57] LABS: Anion Gap 12 mmol/L (10-20); BUN (Urea Nitrogen) 21 mg/dL (9.8-20.1); Calc. Creatinine Clearance 96 mL/min (70-130); Calcium 8.8 mg/dL (7.8-10.44); Carbon Dioxide 24 mmol/L (23-31); Chloride 103 mmol/L (98-107); Glucose 115 mg/dL (83-110); Potassium 4.2 mmol/L (3.5-5.1); Sodium 135 mmol/L (136-145)
[2020-04-11] MEDS: Apixaban 5 MG TAB PO SCH ×2 (08:32→20:19)
[2020-04-11] MEDS: Spironolactone 25 MG TAB PO SCH (08:32)
[2020-04-11] MEDS: guaiFENesin ER 600 MG TAB PO SCH ×2 (08:33→20:19)
[2020-04-11] MEDS: Hydrochlorothiazide 25 MG TAB PO SCH (08:34)
[2020-04-11] MEDS: Carvedilol 25 MG TAB PO SCH ×2 (08:34→16:38)
--- NOTE | 2020-04-11 09:32 | PDOC.HOSPP ---
- Subjective Encounter Date: 04/11/20 Subjective: Patient sates her cough is better today. No chest pain or SOB. HR ranging in the 90's-110's. She had an episode of 8 beats of Afib w aberrancy. - Objective Vital Signs & Weight: Vital Signs (12 hours) Temp Pulse Resp BP Pulse Ox 04/11/20 08:23 99.0 F 100 21 H 145/80 H 96 04/11/20 04:00 98.6 F 90 20 111/62 96 Weight Weight 259 lb 1.6 oz I&O: 04/10/20 04/11/20 04/12/20 06:59 06:59 06:59 Intake Total 1135 1430 Balance 1135 1430 Result Diagrams: 04/11/20 05:14 04/12/20 06:06 Hospitalist ROS - Review of Systems Respiratory: reports: cough. denies: shortness of breath Cardiovascular: denies: chest pain - Medication Medications: Active Medications Generic Name Dose Route Start Last Admin Trade Name Freq PRN Reason Stop Dose Admin Acetaminophen 650 mg 04/08/20 08:41 04/10/20 21:04 Acetaminophen 325 Mg Tab PO 650 mg Q4H PRN Administration Headache/Fever/Mild Pain (1-3) Apixaban 5 mg 04/08/20 09:00 04/11/20 08:32 Apixaban 5 Mg Tab PO 5 mg BID CLARKE Administration Benzonatate 100 mg 04/09/20 21:54 04/10/20 21:03 Benzonatate 100 Mg Cap PO 100 mg TIDPRN PRN Administration Cough Carvedilol 25 mg 04/09/20 17:00 04/11/20 08:34 Carvedilol 25 Mg Tab PO 25 mg BID-WM CLARKE Administration Guaifenesin 1,200 mg 04/08/20 09:00 04/11/20 08:33 Guaifenesin Er 600 Mg Tab PO 1,200 mg Q12HR CLARKE Administration Hydrochlorothiazide 25 mg 04/09/20 09:00 04/11/20 08:34 Hydrochlorothiazide 25 Mg Tab PO 25 mg DAILY CLARKE Administration Melatonin 3 mg 04/09/20 21:54 04/09/20 22:24 Melatonin 3 Mg Tab PO 3 mg HS PRN Administration Insomnia Pantoprazole Sodium 40 mg 04/09/20 09:00 04/11/20 08:34 Pantoprazole 40 Mg Tab PO 40 mg DAILY CLARKE Administration Sodium Chloride 10 ml 04/08/20 09:00 04/11/20 08:34 Flush - Normal Saline 10 Ml Syringe IVF 10 ml Q12HR CLARKE Administration Spironolactone 25 mg 04/09/20 08:00 04/11/20 08:32 Spironolactone 25 Mg Tab PO 25 mg QAM-WM CLARKE Administration Hospitalist Exam Vitals: Vital Signs (12 hours) Temp Pulse Resp BP Pulse Ox 04/11/20 08:23 99.0 F 100 21 H 145/80 H 96 04/11/20 04:00 98.6 F 90 20 111/62 96 Weight Weight 259 lb 1.6 oz General Appearance: NAD, awake alert ENT: moist mucosa Heart - other findings: irregularly irregular, normal rate Respiratory: CTAB, no wheezes, no tachypnea Gastrointestinal: soft, non-tender, non-distended Extremities: no edema Psychiatric: normal affect Hosp A/P (1) Atrial fibrillation with RVR Code(s): I48.91 - UNSPECIFIED ATRIAL FIBRILLATION Status: Acute Plan: Now off cardizem drip. HR ranging in the 90's-110's. She has an episode of 8 beats of A fib w aberrancy. Plan: -continue Coreg and Zaida -Cardiology consulted. Dr. Dao requested record from her cardiology clinic. We will request record from Dr. Echeverria at [facility]. (2) Acute bronchiolitis Code(s): J21.9 - ACUTE BRONCHIOLITIS, UNSPECIFIED Status: Acute Plan: Improving. Plan: -continue supportive care. Cough medication prn (3) (HFpEF) heart failure with preserved ejection fraction Code(s): I50.30 - UNSPECIFIED DIASTOLIC (CONGESTIVE) HEART FAILURE Status: Chronic Plan: Euvolumic. Plan: -cont home meds (4) Hypertension Code(s): I10 - ESSENTIAL (PRIMARY) HYPERTENSION Status: Chronic Qualifiers: Hypertension type: essential hypertension Qualified Code(s): I10 - Essential (primary) hypertension Plan: Plan: -continue home meds
[2020-04-11] MEDS: Benzonatate 100 MG CAP PO PRN (12:22)
[2020-04-11] MEDS: Melatonin 3 MG TAB PO PRN (22:28)
[2020-04-12 06:35] LABS: Anion Gap 14 mmol/L (10-20); BUN (Urea Nitrogen) 23 mg/dL (9.8-20.1); Calc. Creatinine Clearance 93 mL/min (70-130); Calcium 9.1 mg/dL (7.8-10.44); Carbon Dioxide 24 mmol/L (23-31); Chloride 104 mmol/L (98-107); Glucose 112 mg/dL (83-110); Magnesium 2.1 mg/dL (1.6-2.6); Sodium 138 mmol/L (136-145)
--- NOTE | 2020-04-12 07:41 | CON ---
DATE OF CONSULTATION: HISTORY OF PRESENT ILLNESS: The patient is a 69-year-old woman, who presented with increasing dyspnea and coughing. The patient was seen initially in 2016 with atrial fibrillation. The patient at that time was started on Eliquis. The patient was also started on Cardizem. She was readmitted in February of 2017 with rapid atrial fibrillation. She was started at that time also on Toprol. The patient was then seen in February of 2018 with possible pneumonia and atrial fibrillation. The patient is followed by Dr. Reid. She was admitted in April of 2019 and underwent an echocardiogram, which revealed normal left ventricular ejection fraction of 55% to 60%, mild aortic stenosis. She underwent a Cardiolite stress test, which revealed normal left ventricular ejection fraction with ejection rate of 60% and no evidence of ischemia. The patient was admitted with progressive cough and dyspnea. She denied having any chest discomfort. The patient denied having any palpitations. She had been out of her Coreg. The patient was noted to have an irregular heart rhythm on telemetry monitoring. PAST MEDICAL HISTORY: 1. Atrial fibrillation. 2. Hypertension. 3. Dyslipidemia. PAST SURGICAL HISTORY: Tubal ligation, . SOCIAL HISTORY: Nonsmoker. ALLERGIES: NO KNOWN DRUG ALLERGIES. MEDICATIONS: 1. Lipitor 80 at bedtime. 2. Aspirin 81 daily. 3. Spironolactone/hydrochlorothiazide 25 mg daily. 4. Benicar 40 daily. 5. Prozac 40 daily. 6. Eliquis 5 daily. 7. Coreg 12.5 b.i.d. REVIEW OF SYSTEMS: Ten-point system otherwise unremarkable. PHYSICAL EXAMINATION: GENERAL: This is an obese woman, in no acute distress. VITAL SIGNS: Blood pressure of 127/67. NECK: Showed no jugular venous distention. LUNGS: Have expiratory wheeze in both lung bases. HEART: Irregular rate and rhythm. Normal S1 and S2 with a 2/6 systolic murmur. ABDOMEN: Nondistended. EXTREMITIES: Show trace edema. VASCULAR: Radial pulse 2+. LABORATORY DATA: Sodium 135, potassium 4.2, chloride 103, bicarbonate 24, BUN 21, creatinine 1.0, and glucose 115. Troponin 0.018. BNP was 261. White blood cell count 9.7, hemoglobin 11.5, hematocrit 36.5, and platelets 162. EKG revealed her to have atrial fibrillation with a rapid ventricular response. No acute ST- T wave changes. Telemetry monitoring revealed an 8-beat run of probable atrial fibrillation with aberrancy. IMPRESSION AND PLAN: 1. Short run of probable atrial fibrillation with aberrancy. 2. History of permanent atrial fibrillation. 3. Hypertension. 4. Aortic stenosis. 5. Possible chronic obstructive pulmonary disease. 6. Morbid obesity. This patient presented with rapid tachycardia. This appears to be atrial fibrillation with aberrancy. The patient is on appropriate medical therapy including a beta-joanna, and anticoagulation therapy. I have no further recommendations except that she may have difficulty tolerating the higher dose of Coreg due to possible COPD or underlying pulmonary disease. We will follow this patient with you through her hospitalization. Job ID: [id number] MTDD
[2020-04-12 08:23] VITALS: TEMP 98.2
[2020-04-12] MEDS: guaiFENesin ER 600 MG TAB PO SCH (08:45)
[2020-04-12] MEDS: Apixaban 5 MG TAB PO SCH (08:45)
[2020-04-12] MEDS: Spironolactone 25 MG TAB PO SCH (08:45)
[2020-04-12] MEDS: Carvedilol 25 MG TAB PO SCH (08:45)
[2020-04-12] MEDS: Hydrochlorothiazide 25 MG TAB PO SCH (08:45)
[2020-04-12 09:34] VITALS: BP 113/65
--- NOTE | 2020-04-12 11:05 | PDOC.DS.DS ---
Provider Date of Admission: 04/08/20 05:28 Date of Discharge: 04/12/20 Admitting Provider: ZOLTAN Salinas Consultations: Cardiology Primary Care Physician: ADALID PONCE MD Course Hospital Course: Patient is a 69-year-old female with PMH of A. fib, chronic HFpEF, HTN caution, and chronic back pain who presents to the ED with productive cough. She also reported wheezing but denies shortness of breath. No history of smoking. On arrival to the ED, patient was found to have A. fib with RVR with HR in the 120's. She was started on Cardizem drip and was admitted. During her hospitali zation Cardizem drip was stopped once her heart rate was controlled. Her Coreg dose was increased. CXR showed no infiltrate, sputum culture grew normal respiratory andreina. She had mild intermittent wheezing during her hospitalization, no breathing treatment was used due to her rapid HR. Her respiratory symptoms are likely from acute bronchitis. No wheezing on the day of discharge and her cough is well controlled on Mucinex. Patient will f/u with her PCP and Dr. 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 Resuscitation Status: 04/08/20 08:41 Resuscitation Status Routine Resuscitation Status: FULL: Full Resuscitation Discussed with: patient Lab Results: 04/11/20 05:14 04/12/20 06:06 Abnormal Lab Results - Last 48 hrs 04/11/20 05:14: Sodium 135 L, BUN 21 H 04/11/20 05:14: Hgb 11.5 L, MCHC 31.6 L, Monocytes % 10.9 H, Monocytes # 1.1 H 04/12/20 06:06: BUN 23 H Microbiology - Entire Visit 04/08/20 21:05 Sputum Respiratory Culture - Final Vitals: Vital Signs (12 hours) Temp Pulse Resp BP BP Pulse Ox 04/12/20 09:33 113/65 04/12/20 07:29 98.2 F 81 16 92/54 L 99 04/12/20 03:50 97.6 F 95 18 126/59 L 96 Weight Weight 259 lb 1.6 oz Physical Exam: The patient was seen and examined on the day of discharge. General Appearance: NAD, awake alert ENT: moist mucosa Respiratory: CTAB, no wheezes, no tachypnea Cardiovascular - other findings: irregularly irregular, regular rate Gastrointestinal: soft, non-tender, non-distended Extremities: no edema PSYCH: normal affect Problem (1) Atrial fibrillation with RVR Code(s): I48.91 - UNSPECIFIED ATRIAL FIBRILLATION Status: Acute (2) Acute bronchiolitis Code(s): J21.9 - ACUTE BRONCHIOLITIS, UNSPECIFIED Status: Acute (3) (HFpEF) heart failure with preserved ejection fraction Code(s): I50.30 - UNSPECIFIED DIASTOLIC (CONGESTIVE) HEART FAILURE Status: Chronic (4) Hypertension Code(s): I10 - ESSENTIAL (PRIMARY) HYPERTENSION Status: Chronic Qualifiers: Hypertension type: essential hypertension Qualified Code(s): I10 - Essential (primary) hypertension Plan Prescriptions: guaiFENesin ER [Mucinex] 1,200 mg PO Q12HR #6 tab Carvedilol [Coreg] 25 mg PO BID-WM #60 tab Home Medications: Medication Instructions Recorded Confirmed Type Aspirin [Aspirin EC] 81 mg PO DAILY #60 tablet. 03/22/18 04/08/20 Rx FLUoxetine HCl [Prozac] 20 mg PO DAILY 04/28/19 04/08/20 History Apixaban [Eliquis] 5 mg PO BID 04/08/20 04/08/20 History Spironolact/Hydrochlorothiazid 1 each PO DAILY 04/08/20 04/08/20 History [Spironolactone-Hctz 25-25 Tab] Atorvastatin Calcium [Lipitor] 80 mg PO HS 04/10/20 04/10/20 History Apixaban [Eliquis] 5 mg PO BID tab 04/12/20 Rx Carvedilol [Coreg] 25 mg PO BID-WM #60 tab 04/12/20 Rx guaiFENesin ER [Mucinex] 1,200 mg PO Q12HR #6 tab 04/12/20 Rx Allergies: No Known Allergies Allergy (Verified 04/08/20 17:39) Discharge Instructions:: Your Coreg is increased from 12.5 mg to 25 mg due to your rapid heart rate. This might decrease your blood pressure so your Olmesartan is discontinued. Please follow up with your primary care within 2-3 days and your certified driver examiner within 1 week. Activity:: Activity as Tolerated Nourishment:: Heart Healthy Diet Referrals: ADALID PONCE MD [Primary Care Provider] - 3 Days PER [facility] [ Not on Staff] - 7 Days Disposition: HOME Quality CORE MEASURES:: N/A
== END 2020-04-12 11:55 | disposition home or self-care (01) | DRG 309 ==
LOC: ERS 03:16 → ERHOLD 05:28 → 3SE 17:15
PROVIDERS: ADMIT Nurse Practitioner Family; ATTEND Nurse Practitioner Family
DX: I48.91 Unspecified atrial fibrillation (principal); J21.9 Acute bronchiolitis, unspecified; I50.32 Chronic diastolic (congestive) heart failure; Z68.41 Body mass index [BMI] 40.0-44.9, adult; F32.9 Major depressive disorder, single episode, unspecified; I11.0 Hypertensive heart disease with heart failure; G89.29 Other chronic pain; I35.0 Nonrheumatic aortic (valve) stenosis; E66.01 Morbid (severe) obesity due to excess calories; Z20.822 Contact with and (suspected) exposure to COVID-19; Z79.82 Long term (current) use of aspirin
CPT/HCPCS: 0240U; 36415; 71045; 80048; 80053; 83735; 83880; 84484; 85025; 87070; 87205; 93005; 96365; 96366; 96376; J3475; J3490; J7050

== ENCOUNTER 2020-06-05 02:17 | Inpatient (IN) | payer MEDICARE, MEDICAID ==
[2020-06-05 02:53] LABS: #Eosinphils 0.1 thou/uL (0.0-0.7); #Lymphocytes 1.5 thou/uL (1.20-3.40); #Monocytes 0.9 thou/uL (0.11-0.59); #Neutrophils 7.3 thou/uL (1.40-6.50); %Basophils 0.4 % (0.0-1.0); %Eosinophils 1.5 % (0.0-10.0); %Lymphocytes 15.3 % (21.0-51.0); %Monocytes 9.2 % (0.0-10.0); %Neutrophils 73.7 % (42.0-75.0); Hemoglobin 10.6 g/dL (12.0-16.0); Mean Corpuscular HGB CONC 31.6 g/dL (32.0-36.0); Mean Corpuscular Hemoglobin 27.6 pg (27.0-31.0); Mean Corpuscular Volume 87.5 fL (78.0-98.0); Mean Platelet Volume 8.7 fL (7.4-10.4); Platelet Count 153 thou/uL (130-400); RBC Distribution Width 13.3 % (11.5-14.5); Red Blood Cell (RBC) Count 3.84 mill/uL (4.20-5.40); White Blood Cell (WBC) Count 9.9 thou/uL (4.8-10.8)
[2020-06-05 03:15] LABS: ALT (SGPT) 26 U/L (8-55); AST (SGOT) 20 U/L (5-34); Albumin 3.6 g/dL (3.4-4.8); Alkaline Phosphatase 92 U/L (40-110); Anion Gap 11 mmol/L (10-20); BUN (Urea Nitrogen) 8 mg/dL (9.8-20.1); Bilirubin, Total 0.9 mg/dL (0.2-1.2); Calc. Creatinine Clearance 0 mL/min (70-130); Calcium 8.8 mg/dL (7.8-10.44); Carbon Dioxide 27 mmol/L (23-31); Chloride 107 mmol/L (98-107); Globulin 2.7 g/dL (2.4-3.5); Glucose 117 mg/dL (83-110); Potassium 3.4 mmol/L (3.5-5.1); Protein, Total 6.3 g/dL (5.8-8.1); Sodium 142 mmol/L (136-145)
[2020-06-05] MEDS ORDERED: Aspirin Chewable 81 MG TAB ONE (03:25)
[2020-06-05] MEDS ORDERED: Nitroglycerin 2% Ointment 1 INCH/1 GM Packet ONE (03:26)
[2020-06-05 03:36] LABS: CKMB 1.1 ng/mL (0-6.6)
[2020-06-05 04:24] LABS: SARS-CoV-2 NAA Rapid Test Not Detected (NotDetected)
[2020-06-05] MEDS ORDERED: Furosemide 40 MG/4 ML VIAL ONE (04:32)
[2020-06-05] MEDS ORDERED: Ondansetron PF 4 MG/2 ML Vial IVP PRN (08:27)
[2020-06-05 09:00] LABS: Troponin I 0.056 ng/mL (< 0.028)
[2020-06-05] MEDS ORDERED: Acetaminophen 325 MG TAB ONE (09:46)
[2020-06-05] MEDS: Acetaminophen 325 MG TAB PO PRN (09:54)
[2020-06-05] MEDS ORDERED: Carvedilol 25 MG TAB PO SCH (10:15)
[2020-06-05] MEDS: Losartan 25 MG TAB PO SCH (12:12)
[2020-06-05 15:47] LABS: Troponin I 0.047 ng/mL (< 0.028)
[2020-06-05 17:04] VITALS: BMI 41.9
[2020-06-05] MEDS: Carvedilol 25 MG TAB PO SCH (18:13)
[2020-06-05] MEDS ORDERED: Potassium Chloride 20 MEQ TAB PO SCH (19:45)
[2020-06-05] MEDS: Apixaban 5 MG TAB PO SCH (20:18)
[2020-06-06] MEDS: Acetaminophen 325 MG TAB PO PRN (03:39)
[2020-06-06 06:16] LABS: #Eosinphils 0.1 thou/uL (0.0-0.7); #Lymphocytes 1.6 thou/uL (1.20-3.40); #Monocytes 0.9 thou/uL (0.11-0.59); #Neutrophils 4.4 thou/uL (1.40-6.50); %Basophils 0.1 % (0.0-1.0); %Eosinophils 1.9 % (0.0-10.0); %Monocytes 12.2 % (0.0-10.0); %Neutrophils 62.8 % (42.0-75.0); Mean Corpuscular HGB CONC 31.1 g/dL (32.0-36.0); Mean Corpuscular Hemoglobin 27.2 pg (27.0-31.0); Mean Corpuscular Volume 87.3 fL (78.0-98.0); Platelet Count 138 thou/uL (130-400); RBC Distribution Width 13.6 % (11.5-14.5); Red Blood Cell (RBC) Count 3.67 mill/uL (4.20-5.40)
[2020-06-06 06:31] LABS: Hemoglobin A1c 5.6 % (4.0-6.0)
[2020-06-06 06:37] LABS: Anion Gap 12 mmol/L (10-20); BUN (Urea Nitrogen) 8 mg/dL (9.8-20.1); Calc. Creatinine Clearance 122 mL/min (70-130); Calcium 8.5 mg/dL (7.8-10.44); Carbon Dioxide 26 mmol/L (23-31); Cardiac Risk 4.1 (Less than 4.5); Chloride 107 mmol/L (98-107); Cholesterol 90 mg/dl (< 200 Desired); Glucose 116 mg/dL (83-110); HDL Cholesterol 22 mg/dL (>60 Neg Risk); LDL Cholesterol, Calculated 48 mg/dL; Potassium 3.5 mmol/L (3.5-5.1); Sodium 141 mmol/L (136-145); Triglycerides 98 mg/dL (Less than 150)
[2020-06-06 06:55] LABS: Free T4 (Free Thyroxine) 1.65 ng/dL (0.70-1.48); Thyroid Stimulating Hormone Less than 0.0025 uIU/mL (0.35-4.94)
[2020-06-06] MEDS: Apixaban 5 MG TAB PO SCH ×2 (09:06→21:12)
[2020-06-06] MEDS: Carvedilol 25 MG TAB PO SCH ×2 (09:06→18:01)
[2020-06-06] MEDS: Losartan 25 MG TAB PO SCH (09:06)
[2020-06-06] MEDS ORDERED: Potassium Chloride 20 MEQ TAB PO SCH (09:45)
[2020-06-06] MEDS: NIFEdipine XL 30 MG TAB PO SCH (10:49)
[2020-06-06] MEDS ORDERED: Furosemide 20 MG TAB PO SCH (19:15)
[2020-06-06] MEDS ORDERED: Melatonin 3 MG TAB PO SCH (22:30)
[2020-06-07] MEDS ORDERED: Levothyroxine Sodium 125 MCG TAB PO SCH (06:00)
[2020-06-07 06:57] LABS: #Eosinphils 0.1 thou/uL (0.0-0.7); #Lymphocytes 1.8 thou/uL (1.20-3.40); #Monocytes 0.8 thou/uL (0.11-0.59); #Neutrophils 3.7 thou/uL (1.40-6.50); %Basophils 0.4 % (0.0-1.0); %Lymphocytes 28.2 % (21.0-51.0); %Monocytes 12.1 % (0.0-10.0); %Neutrophils 57.2 % (42.0-75.0); Hemoglobin 10.5 g/dL (12.0-16.0); Mean Corpuscular Hemoglobin 27.2 pg (27.0-31.0); Mean Corpuscular Volume 87.7 fL (78.0-98.0); Mean Platelet Volume 8.9 fL (7.4-10.4); Platelet Count 149 thou/uL (130-400); RBC Distribution Width 13.9 % (11.5-14.5); Red Blood Cell (RBC) Count 3.87 mill/uL (4.20-5.40); White Blood Cell (WBC) Count 6.5 thou/uL (4.8-10.8)
[2020-06-07 07:20] LABS: Anion Gap 13 mmol/L (10-20); BUN (Urea Nitrogen) 8 mg/dL (9.8-20.1); Calc. Creatinine Clearance 117 mL/min (70-130); Calcium 9.1 mg/dL (7.8-10.44); Carbon Dioxide 26 mmol/L (23-31); Chloride 107 mmol/L (98-107); Glucose 93 mg/dL (83-110); Potassium 3.9 mmol/L (3.5-5.1); Sodium 142 mmol/L (136-145)
[2020-06-07] MEDS ORDERED: Furosemide 20 MG TAB PO SCH (09:00)
[2020-06-07] MEDS: NIFEdipine XL 30 MG TAB PO SCH (09:04)
[2020-06-07] MEDS: Apixaban 5 MG TAB PO SCH (09:04)
[2020-06-07] MEDS: Carvedilol 25 MG TAB PO SCH (09:04)
[2020-06-07] MEDS: Losartan 25 MG TAB PO SCH (09:05)
[2020-06-07 11:41] VITALS: BP 131/58; TEMP 98.3
[2020-06-07] MEDS ORDERED: Melatonin 3 MG TAB PO SCH (21:00)
== END 2020-06-07 13:01 | disposition home or self-care (01) | DRG 293 ==
LOC: ERS 02:17 → ERHOLD 04:35 → 2SW 16:17 → OBSVTOIN 06-07 11:23
PROVIDERS: ADMIT Internal Medicine; ATTEND Hospitalist
DX: I11.0 Hypertensive heart disease with heart failure (principal); E11.9 Type 2 diabetes mellitus without complications; I50.23 Acute on chronic systolic (congestive) heart failure; Z91.14 Patient's other noncompliance with medication regimen; Z96.652 Presence of left artificial knee joint; Z82.49 Family history of ischemic heart disease and other diseases of the circulatory system; I48.0 Paroxysmal atrial fibrillation; E87.6 Hypokalemia; E07.9 Disorder of thyroid, unspecified; Z79.01 Long term (current) use of anticoagulants; I34.0 Nonrheumatic mitral (valve) insufficiency; E03.9 Hypothyroidism, unspecified; I16.0 Hypertensive urgency; E78.5 Hyperlipidemia, unspecified; K21.9 Gastro-esophageal reflux disease without esophagitis
CPT/HCPCS: 0240U; 36415; 70490; 71045; 74018; 80048; 80053; 80061; 82553; 83036; 83880; 84439; 84443; 84481; 84484; 85025; 93005; 96374; 96375; G0378; J1940

== ENCOUNTER 2020-11-13 17:25 | Emergency (ER) | payer MEDICARE, MEDICAID ==
[2020-11-13] MEDS ORDERED: traMADol HCl 50 MG TAB ONE (19:05)
== END 2020-11-13 19:20 | disposition home or self-care (01) ==
LOC: ERS 17:25
DX: M54.5 Low back pain (principal); M25.561 Pain in right knee; I10 Essential (primary) hypertension; Z79.899 Other long term (current) drug therapy
CPT/HCPCS: 99283

== ENCOUNTER 2021-03-24 16:47 | Emergency (ER) | payer MEDICARE, MEDICAID ==
[2021-03-24] MEDS ORDERED: traMADol HCl 50 MG TAB ONE (18:06)
== END 2021-03-24 18:24 | disposition home or self-care (01) ==
LOC: ERS 16:47
DX: S29.012A Strain of muscle and tendon of back wall of thorax, initial encounter (principal); M17.11 Unilateral primary osteoarthritis, right knee; G89.29 Other chronic pain; I48.91 Unspecified atrial fibrillation; I10 Essential (primary) hypertension; X50.1XXA Overexertion from prolonged static or awkward postures, initial encounter; Z79.01 Long term (current) use of anticoagulants; Z79.899 Other long term (current) drug therapy
CPT/HCPCS: 99283

== ENCOUNTER 2021-09-03 02:14 | Emergency (ER) | payer MEDICARE, MEDICAID ==
[2021-09-03 02:58] LABS: #Lymphocytes 1.6 thou/uL (1.20-3.40); #Monocytes 0.7 thou/uL (0.11-0.59); #Neutrophils 4.5 thou/uL (1.40-6.50); %Basophils 0.5 % (0.0-1.0); %Eosinophils 0.7 % (0.0-10.0); %Lymphocytes 23.2 % (21.0-51.0); %Neutrophils 65.7 % (42.0-75.0); Hemoglobin 10.7 g/dL (12.0-16.0); Mean Corpuscular HGB CONC 31.3 g/dL (32.0-36.0); Mean Corpuscular Hemoglobin 28.5 pg (27.0-31.0); Mean Corpuscular Volume 90.8 fL (78.0-98.0); Mean Platelet Volume 8.7 fL (7.4-10.4); Platelet Count 181 thou/uL (130-400); RBC Distribution Width 12.8 % (11.5-14.5); Red Blood Cell (RBC) Count 3.76 mill/uL (4.20-5.40); White Blood Cell (WBC) Count 6.8 thou/uL (4.8-10.8)
[2021-09-03 03:45] LABS: ALT (SGPT) 14 U/L (8-55); AST (SGOT) 18 U/L (5-34); Albumin 3.7 g/dL (3.4-4.8); Alkaline Phosphatase 102 U/L (40-110); Anion Gap 17 mmol/L (10-20); BUN (Urea Nitrogen) 19 mg/dL (9.8-20.1); Bilirubin, Total 0.9 mg/dL (0.2-1.2); Calc. Creatinine Clearance 0 mL/min (70-130); Calcium 9.5 mg/dL (7.8-10.44); Carbon Dioxide 24 mmol/L (23-31); Chloride 102 mmol/L (98-107); Estimated GFR 84; Globulin 3.5 g/dL (2.4-3.5); Glucose 98 mg/dL (83-110); Potassium 3.7 mmol/L (3.5-5.1); Protein, Total 7.2 g/dL (5.8-8.1); Sodium 139 mmol/L (136-145)
[2021-09-03] MEDS ORDERED: Morphine 4 MG/ML VIAL ONE (04:00)
[2021-09-03] MEDS ORDERED: Ondansetron PF 4 MG/2 ML Vial ONE (04:00)
[2021-09-03] MEDS ORDERED: Carvedilol 25 MG TAB PO SCH (05:15)
== END 2021-09-03 12:20 ==
LOC: ERS 02:14
DX: L03.115 Cellulitis of right lower limb (principal); M25.461 Effusion, right knee; M25.561 Pain in right knee; R00.0 Tachycardia, unspecified; R60.0 Localized edema; I48.91 Unspecified atrial fibrillation; I10 Essential (primary) hypertension; M19.90 Unspecified osteoarthritis, unspecified site; Z79.01 Long term (current) use of anticoagulants; Z79.899 Other long term (current) drug therapy
CPT/HCPCS: 36415; 80053; 83605; 85025; 87040; 93005; 96374; 96375; J2270; J2405

== ENCOUNTER 2021-10-11 14:41 | Emergency (ER) | payer MEDICARE, MEDICAID ==
[~2021-10-11 14:41] MED LIST changes: -ISOVUE-370 76%-LOCM 1 ML ONE; +Iopamidol-370 76% 500 ML 1 ML ONE
[2021-10-11] MEDS ORDERED: Ondansetron ODT 4 MG TAB ONE (15:15)
[2021-10-11] MEDS ORDERED: Famotidine 20 MG TAB ONE (15:15)
[2021-10-11 15:32] LABS: #Eosinphils 0.1 thou/uL (0.0-0.7); #Lymphocytes 1.7 thou/uL (1.20-3.40); #Monocytes 0.5 thou/uL (0.11-0.59); #Neutrophils 4.9 thou/uL (1.40-6.50); %Basophils 0.5 % (0.0-1.0); %Eosinophils 1.1 % (0.0-10.0); %Lymphocytes 23.3 % (21.0-51.0); %Monocytes 7.4 % (0.0-10.0); %Neutrophils 67.8 % (42.0-75.0); Hemoglobin 12.1 g/dL (12.0-16.0); Mean Corpuscular HGB CONC 31.4 g/dL (32.0-36.0); Mean Corpuscular Hemoglobin 28.1 pg (27.0-31.0); Mean Corpuscular Volume 89.4 fL (78.0-98.0); Mean Platelet Volume 9.1 fL (7.4-10.4); Platelet Count 185 thou/uL (130-400); RBC Distribution Width 12.4 % (11.5-14.5); White Blood Cell (WBC) Count 7.3 thou/uL (4.8-10.8)
[2021-10-11 15:47] LABS: Bilirubin 1+ (Negative); Blood, Urine Negative (Negative); Glucose, Urine (Dipstick) Normal (Negative); Ketone, Urine Negative (Negative); Leukocyte Negative Leu/uL (Negative); Nitrite Negative (Negative); Protein, Urine (Dipstick) 30 mg/dL (Neg-Trace); RBC/HPF 0-3 HPF (0-3); Specific Gravity, Urine 1.042 (1.002-1.036); WBC/HPF 0-3 HPF (0-3)
[2021-10-11 15:48] LABS: Bacteria/HPF 1+ HPF (None Seen); Clarity Hazy (Clear)
[2021-10-11 15:51] LABS: ALT (SGPT) 15 U/L (8-55); AST (SGOT) 17 U/L (5-34); Alkaline Phosphatase 117 U/L (40-110); Anion Gap 14 mmol/L (10-20); BUN (Urea Nitrogen) 18 mg/dL (9.8-20.1); Bilirubin, Total 0.6 mg/dL (0.2-1.2); Calc. Creatinine Clearance 0 mL/min (70-130); Calcium 9.7 mg/dL (7.8-10.44); Carbon Dioxide 27 mmol/L (23-31); Chloride 104 mmol/L (98-107); Estimated GFR 68; Globulin 3.7 g/dL (2.4-3.5); Glucose 105 mg/dL (83-110); Lipase 17 U/L (8-78); Protein, Total 7.7 g/dL (5.8-8.1); Sodium 141 mmol/L (136-145)
== END 2021-10-11 16:20 | disposition home or self-care (01) ==
LOC: ERS 14:41
DX: N28.1 Cyst of kidney, acquired (principal); R10.13 Epigastric pain; M25.561 Pain in right knee; I48.91 Unspecified atrial fibrillation; I10 Essential (primary) hypertension
CPT/HCPCS: 36415; 74177; 80053; 81003; 81015; 83690; 85025; Q0162; Q9967

== ENCOUNTER 2021-11-07 12:20 | Emergency (ER) | payer MEDICARE, MEDICAID ==
[2021-11-07] MEDS ORDERED: Ketorolac Tromethamine 30 MG/ML VIAL ONE (13:33)
== END 2021-11-07 15:08 | disposition home or self-care (01) ==
LOC: ERS 12:20
DX: M25.551 Pain in right hip (principal); M25.561 Pain in right knee; I10 Essential (primary) hypertension; I48.91 Unspecified atrial fibrillation; Z79.899 Other long term (current) drug therapy
CPT/HCPCS: 96372; J1885

== ENCOUNTER 2022-01-02 13:22 | Emergency (ER) | payer MEDICARE, MEDICAID ==
[2022-01-02] MEDS ORDERED: Ketorolac Tromethamine 30 MG/ML VIAL ONE (15:10)
[2022-01-02 15:47] LABS: Hemoglobin 11.6 g/dL (12.0-16.0); Mean Corpuscular HGB CONC 30.8 g/dL (32.0-36.0); Mean Corpuscular Hemoglobin 27.8 pg (27.0-31.0); Mean Corpuscular Volume 90.4 fl (78.0-98.0); RBC Distribution Width 13.1 % (11.5-14.5); Red Blood Cell (RBC) Count 4.16 mill/uL (4.20-5.40)
[2022-01-02 16:10] LABS: Eosinophils 1 % (0-10); Lymphocytes 30 % (21-51); MDiff Complete? YES; Mean Platelet Volume 9.4 fL (7.4-10.4); Monocytes 2 % (0-10); Neutrophil 61 % (42-75); Platelet Count 142 10x3/uL (130-400); Platelet Morphology Comment Appears Adequate; Reactive Lymphocytes 6 % (0-10); White Blood Cell (WBC) Count 7.2 10x3/uL (4.8-10.8)
[2022-01-02 16:15] LABS: ALT (SGPT) 36 U/L (8-55); AST (SGOT) 44 U/L (5-34); Albumin 3.9 g/dL (3.4-4.8); Alkaline Phosphatase 107 U/L (40-110); Anion Gap 12 mmol/L (10-20); BUN (Urea Nitrogen) 17 mg/dL (9.8-20.1); Bilirubin, Total 0.7 mg/dL (0.2-1.2); Calc. Creatinine Clearance 0 mL/min (70-130); Calcium 8.7 mg/dL (7.8-10.44); Carbon Dioxide 26 mmol/L (23-31); Chloride 104 mmol/L (98-107); Estimated GFR 69; Globulin 3.4 g/dL (2.4-3.5); Glucose 83 mg/dL (83-110); Potassium 3.7 mmol/L (3.5-5.1); Protein, Total 7.3 g/dL (5.8-8.1); Sodium 138 mmol/L (136-145)
== END 2022-01-02 16:55 | disposition home or self-care (01) ==
LOC: ERS 13:22
DX: M25.561 Pain in right knee (principal); I10 Essential (primary) hypertension; I48.91 Unspecified atrial fibrillation
CPT/HCPCS: 36415; 80053; 85025; 85652; 86140; 96372; J1885

== ENCOUNTER 2022-03-12 15:15 | Emergency (ER) | payer OTHER, MEDICAID ==
[2022-03-12 15:56] LABS: #Eosinphils 0.1 thou/uL (0.0-0.7); #Monocytes 0.4 thou/uL (0.11-0.59); #Neutrophils 4.6 thou/uL (1.40-6.50); %Basophils 0.2 % (0.0-1.0); %Eosinophils 1.1 % (0.0-10.0); %Lymphocytes 28.2 % (21.0-51.0); %Monocytes 6.1 % (0.0-10.0); %Neutrophils 64.4 % (42.0-75.0); Hemoglobin 13.2 g/dL (12.0-16.0); Mean Corpuscular HGB CONC 31.9 g/dL (32.0-36.0); Mean Corpuscular Hemoglobin 28.7 pg (27.0-31.0); Mean Corpuscular Volume 90.1 fl (78.0-98.0); Mean Platelet Volume 9.3 fL (7.4-10.4); Platelet Count 150 10x3/uL (130-400); RBC Distribution Width 13.7 % (11.5-14.5); White Blood Cell (WBC) Count 7.2 10x3/uL (4.8-10.8)
[2022-03-12 15:58] LABS: Bilirubin Negative (Negative); Blood, Urine Negative (Negative); Clarity Clear (Clear); Glucose, Urine (Dipstick) Normal (Negative); Ketone, Urine Negative (Negative); Leukocyte Negative Leu/uL (Negative); Nitrite Negative (Negative); Protein, Urine (Dipstick) 10 mg/dL (Neg-Trace); Specific Gravity, Urine 1.023 (1.002-1.036); Urobilinogen Normal mg/dL (Less than 2); pH, Urine 6.5 (5.0-9.0)
[2022-03-12] MEDS ORDERED: Mag-Al 1200 mg/1200 mg/30 ML UDCUP ONE (16:14)
[2022-03-12] MEDS ORDERED: Ondansetron PF 4 MG/2 ML Vial ONE (16:14)
[2022-03-12] MEDS ORDERED: Famotidine/PF 20 mg/2ml Vial ONE (16:14)
[2022-03-12] MEDS ORDERED: Lidocaine Viscous Sol 2% 15 ml UD Cup ONE (16:14)
[2022-03-12 16:46] LABS: Magnesium 1.7 mg/dL (1.6-2.6)
[2022-03-12 16:47] LABS: Lipase 16 U/L (8-78)
[2022-03-12 16:54] LABS: ALT (SGPT) 20 U/L (8-55); AST (SGOT) 27 U/L (5-34); Albumin 4.1 g/dL (3.4-4.8); Alkaline Phosphatase 118 U/L (40-110); Anion Gap 16 mmol/L (10-20); BUN (Urea Nitrogen) 13 mg/dL (9.8-20.1); Bilirubin, Total 0.9 mg/dL (0.2-1.2); Calc. Creatinine Clearance 0 mL/min (70-130); Calcium 9.1 mg/dL (7.8-10.44); Carbon Dioxide 24 mmol/L (23-31); Chloride 105 mmol/L (98-107); Estimated GFR 73; Globulin 3.5 g/dL (2.4-3.5); Glucose 118 mg/dL (83-110); Potassium 4.6 mmol/L (3.5-5.1); Protein, Total 7.6 g/dL (5.8-8.1); Sodium 140 mmol/L (136-145)
== END 2022-03-12 19:43 | disposition home or self-care (01) ==
LOC: ERS 15:15
DX: N28.89 Other specified disorders of kidney and ureter (principal); I10 Essential (primary) hypertension; Z79.899 Other long term (current) drug therapy
CPT/HCPCS: 36415; 71045; 74177; 80053; 81003; 83690; 83735; 84484; 85025; 93005; 96374; 96375; J2405; Q9967; S0028

== ENCOUNTER 2022-10-16 11:05 | Emergency (ER) | payer OTHER ==
[2022-10-16 11:49] LABS: #Eosinphils 0.1 thou/uL (0.0-0.7); #Monocytes 0.6 thou/uL (0.11-0.59); #Neutrophils 2.9 thou/uL (1.40-6.50); %Basophils 0.2 % (0.0-1.0); %Eosinophils 1.4 % (0.0-10.0); %Lymphocytes 28.8 % (21.0-51.0); %Monocytes 11.1 % (0.0-10.0); %Neutrophils 58.3 % (42.0-75.0); Hematocrit 40.2 % (36.0-47.0); Hemoglobin 12.3 g/dL (12.0-16.0); Mean Corpuscular HGB CONC 30.6 g/dL (32.0-36.0); Mean Corpuscular Hemoglobin 28.3 pg (27.0-31.0); Mean Corpuscular Volume 92.4 fl (78.0-98.0); Mean Platelet Volume 10.6 fL (7.4-10.4); Platelet Count 168 10x3/uL (130-400); RBC Distribution Width 13.2 % (11.5-14.5); Red Blood Cell (RBC) Count 4.35 mill/uL (4.20-5.40)
[2022-10-16 12:12] LABS: ALT (SGPT) 11 U/L (8-55); AST (SGOT) 16 U/L (5-34); Albumin 3.9 g/dL (3.4-4.8); Alkaline Phosphatase 93 U/L (40-110); Anion Gap 11 mmol/L (10-20); BUN (Urea Nitrogen) 17 mg/dL (9.8-20.1); Bilirubin, Total 0.4 mg/dL (0.2-1.2); Calc. Creatinine Clearance 0 mL/min (70-130); Calcium 9.1 mg/dL (7.8-10.44); Carbon Dioxide 29 mmol/L (23-31); Chloride 104 mmol/L (98-107); Estimated GFR 49; Globulin 3.2 g/dL (2.4-3.5); Glucose 93 mg/dL (83-110); Lipase 49 U/L (8-78); Potassium 3.6 mmol/L (3.5-5.1); Protein, Total 7.1 g/dL (5.8-8.1); Sodium 140 mmol/L (136-145)
[2022-10-16] MEDS ORDERED: traMADol HCl 50 MG TAB ONE (13:07)
[2022-10-16] MEDS ORDERED: Acetaminophen 325 MG TAB ONE (13:07)
== END 2022-10-16 14:17 | disposition home or self-care (01) ==
LOC: ERS 11:05
DX: R10.84 Generalized abdominal pain (principal); I10 Essential (primary) hypertension; K21.9 Gastro-esophageal reflux disease without esophagitis; Z79.01 Long term (current) use of anticoagulants; Z79.899 Other long term (current) drug therapy
CPT/HCPCS: 36415; 80053; 83690; 84443; 85025; 93005

== ENCOUNTER 2022-12-12 10:55 | Emergency (ER) | payer OTHER ==
[~2022-12-12 10:55] MED LIST changes: -Iopamidol-370 76% 500 ML 1 ML ONE; +Iopamidol-370 76% 500 ML MDV (1 ML CHARGE) ONE
[2022-12-12 11:32] LABS: #Eosinphils 0.1 thou/uL (0.0-0.7); #Monocytes 0.5 thou/uL (0.11-0.59); #Neutrophils 5.2 thou/uL (1.40-6.50); %Basophils 0.3 % (0.0-1.0); %Eosinophils 0.9 % (0.0-10.0); %Lymphocytes 24.7 % (21.0-51.0); %Monocytes 6.8 % (0.0-10.0); %Neutrophils 66.9 % (42.0-75.0); Hematocrit 41.1 % (36.0-47.0); Mean Corpuscular HGB CONC 31.6 g/dL (32.0-36.0); Mean Corpuscular Hemoglobin 28.7 pg (27.0-31.0); Mean Corpuscular Volume 90.7 fl (78.0-98.0); Mean Platelet Volume 10.4 fL (7.4-10.4); Platelet Count 217 10x3/uL (130-400); RBC Distribution Width 13.1 % (11.5-14.5); Red Blood Cell (RBC) Count 4.53 mill/uL (4.20-5.40); White Blood Cell (WBC) Count 7.8 10x3/uL (4.8-10.8)
[2022-12-12 11:33] LABS: Bilirubin Negative (Negative); Blood, Urine Negative (Negative); CAUTI Indications for Culture Pelvic or flank pain; Clarity Clear (Clear); Glucose, Urine (Dipstick) Normal (Negative); Ketone, Urine Negative (Negative); Leukocyte Negative Leu/uL (Negative); Nitrite Negative (Negative); Protein, Urine (Dipstick) Negative (Neg-Trace); RBC/HPF 0-3 HPF (0-3); Specific Gravity, Urine 1.025 (1.002-1.036); Urobilinogen Normal mg/dL (Less than 2); WBC/HPF 0-3 HPF (0-3); pH, Urine 5.5 (5.0-9.0)
[2022-12-12 11:35] LABS: Bacteria/HPF 1+ HPF (None Seen)
[2022-12-12 11:36] LABS: Urine Culture Reflex No No
[2022-12-12 11:50] LABS: ALT (SGPT) 15 U/L (8-55); AST (SGOT) 14 U/L (5-34); Albumin 4.2 g/dL (3.4-4.8); Alkaline Phosphatase 107 U/L (40-110); Anion Gap 14 mmol/L (10-20); BUN (Urea Nitrogen) 15 mg/dL (9.8-20.1); Bilirubin, Total 1.1 mg/dL (0.2-1.2); Calc. Creatinine Clearance 0 mL/min (70-130); Calcium 9.3 mg/dL (7.8-10.44); Carbon Dioxide 26 mmol/L (23-31); Chloride 103 mmol/L (98-107); Estimated GFR 65; Globulin 3.1 g/dL (2.4-3.5); Glucose 90 mg/dL (83-110); Lipase 11 U/L (8-78); Potassium 4.4 mmol/L (3.5-5.1); Protein, Total 7.3 g/dL (5.8-8.1); Sodium 139 mmol/L (136-145)
== END 2022-12-12 15:35 | disposition home or self-care (01) ==
LOC: ERS 10:55
DX: R10.9 Unspecified abdominal pain (principal); I48.91 Unspecified atrial fibrillation; I10 Essential (primary) hypertension; K21.9 Gastro-esophageal reflux disease without esophagitis; Z79.01 Long term (current) use of anticoagulants; Z79.899 Other long term (current) drug therapy
CPT/HCPCS: 36415; 74177; 80053; 81001; 83690; 85025; Q9967